=== PATIENT | male | born 1940 | race Caucasian/White ===

== ENCOUNTER 2023-03-31 23:00 | Emergency (ER) | payer MEDICARE, OTHER, SELFPAY ==
[2023-03-31 23:07] VITALS: RESP 16; O2SAT 99
[2023-03-31 23:08] VITALS: BP 135/73; PULSE 79; RESP 18; TEMP 36.7; O2SAT 99; BMI 28.1
--- NOTE | 2023-03-31 23:25 | ED.GENADULT ---
HPI - General Adult General Chief complaint: Unspecified Complaint, Adult Stated complaint: Possible pulled muscle in butt Time Seen by Provider: 03/31/23 23:16 Source: patient Mode of arrival: ambulatory Limitations: no limitations History of Present Illness HPI narrative: 83-year-old male presenting today with pain in his buttocks. He states that this started yesterday. He has an appoint with his primary care provider tomorrow but he could not wait. He pain is constant nothing seems to make it better or worse. Does not stop him from doing his daily physical activities however. He states that this did happen to him about 3 weeks ago and the pain lasted for a few days and then went away. He denies any systemic symptoms. He denies difficulty walking. He denies the pain radiating down his leg. Pain is located in the left buttocks. He states that he spent the day going up and down ladders washing windows, spent about 3 hours doing this, and feels like this perhaps exacerbated his pain. He has taking gabapentin 200 mg which he did not feel was useful. Related Data Home Medications Medication Instructions Recorded Confirmed gabapentin 100 mg capsule 100 mg PO DIRECTED 03/31/23 03/31/23 tamsulosin 0.4 mg capsule 0.4 mg PO DAILY 03/31/23 03/31/23 warfarin 2 mg tablet 2 mg PO DIRECTED 03/31/23 03/31/23 Previous Rx's Medication Instructions Recorded methylprednisolone 4 mg tablets in See Rx Instructions PO .COMPLEX 03/31/23 a dose pack (Medrol (Jj)) #21 ea Allergies Allergy/AdvReac Type Severity Reaction Status Date / Time No Known Drug Allergies Allergy Verified 03/31/23 23:10 Review of Systems Status of ROS: Reports: 10 or more systems reviewed and unremarkable except as noted in History and below [facility] Social History Smoking Status: Never smoker Second hand tobacco smoke exposure: No How often do you have a drink containing alcohol: never How often do you have six or more drinks on one occasion: Never AUDIT-C Alcohol total score: 0 Non-prescribed substance use: denies use Exam Narrative: Exam Narrative: Well-nourished well-developed patient in no acute distress. Alert and oriented. Answers questions appropriately. Mood and affect are appropriate. Thoughts are goal oriented and rational. No tangential or magical thinking noted. Patient speaks in full sentences without needing to catch his breath. Does not appear ill or toxic. He is able to go from a lying to sitting position and then standing without difficulty. HEENT: Normocephalic atraumatic. Pupils are equally round reactive to light. Extraocular muscles are intact. Conjunctivae are moist without any icterus noted. Moist mucous membranes. Skin: Well perfused without any obvious rashes. Back: Normal appearance. Patient has no rash visible in the lower back or buttocks area. He has no significant tenderness to palpation of the buttocks. He has a negative straight leg test. His strength is 5/5 of the bilateral lower extremities. He has no pain with manipulation at the left hip joint. Const: Vital Signs, click to edit/add: Vital Signs - 24 hr 03/31/23 23:07 03/31/23 23:08 Temperature 98.0 F Pulse Rate [Right Pulse Oximeter] 79 Respiratory Rate 18 Respiratory Rate [ Left Buttock] 16 Blood Pressure [Ri ght Upper Arm] 135/73 Pulse Oximetry 99 Oxygen Delivery Me thod Room Air Course Vital Signs Vital signs: Initial Vital Signs Respiratory Rate 16 03/31/23 23:07 Vital Signs Respiratory Rate 16 03/31/23 23:07 Temperature 98.0 F 03/31/23 23:08 Pulse Rate 79 03/31/23 23:08 Respiratory Rate 18 03/31/23 23:08 Blood Pressure 135/73 03/31/23 23:08 Pulse Oximetry 99 03/31/23 23:08 Oxygen Delivery Method Room Air 03/31/23 23:[address] [facility] Narrative Medical decision making narrative: 83-year-old male with gluteal pain. Differential diagnoses includes low back pain, piriformis syndrome, musculoskeletal discomfort, sciatic without radiculopathy. We discussed treatment with a steroid. We discussed this will not bring immediate relief in patient feels comfortable with this. We discussed treatment with narcotic pain medication which the patient does not wish to have at this time. We discussed Tylenol and heat. Patient in agreement with everything we discussed had no other questions. Discharge Plan Discharge Clinical Impression: Gluteal pain Patient Disposition: Home, Self-Care Condition: Stable Additional Instructions: Take steroid as prescribed. Okay to use Tylenol as needed/as directed for discomfort. Okay to use a heating pad to the area, do not apply heat directly to skin. I would recommend that you keep your appointment tomorrow for a follow-up. Can pickle cutter steroids tomorrow and start 1st thing in the morning. You did receive 1 dose of steroid in the ED today. Prescriptions: New methylprednisolone [Medrol (Jj)] 4 mg tablets,dose pack See Rx Instructions .ROUTE .COMPLEX Qty: 21 0RF Rx Instructions: orally per package directions No Action gabapentin 100 mg capsule 100 mg PO DIRECTED tamsulosin 0.4 mg capsule 0.4 mg PO DAILY warfarin 2 mg tablet 2 mg PO DIRECTED Rx Instructions: TAKE 3 TABLETS BY MOUTH EVERY SUN AND THUR, TAKE 2 TABS ALL OTHER DAYS IN THE EVENING OR DIRECTED Stand Alone Forms: [employer] Info Instructions
[2023-03-31] MEDS: predniSONE 10 MG TABLET 50 MG PO (23:38)
[2023-03-31 23:47] VITALS: BP 125/70; PULSE 74; RESP 18; TEMP 36.7; O2SAT 99
[2023-03-31 23:48] VITALS: BP 125/70; PULSE 74; RESP 18; TEMP 36.7
== END 2023-03-31 23:48 | disposition home or self-care (01) ==
PROVIDERS: Emergency Provider Family Medicine
DX: M79.18 Myalgia, other site (principal)
CPT/HCPCS: 99283; 99284; J7512

== ENCOUNTER 2023-05-08 12:37 | Emergency (ER) | payer MEDICARE, OTHER, SELFPAY ==
[2023-05-08 12:51] VITALS: BP 113/68; PULSE 84; RESP 18; TEMP 37; O2SAT 95; BMI 28.2
--- NOTE | 2023-05-08 13:15 | ED.WOUNDLAC ---
HPI - Wound/Laceration General Time Seen by Provider: 13:15 Date Seen: 05/08/23 Chief Complaint: Laceration/Wound Stated Complaint: R knee lac Time Seen by Provider: 05/08/23 13:15 Source: patient, RN notes reviewed and old records reviewed Mode of arrival: ambulatory Limitations: no limitations History of Present Illness HPI narrative: Patient is a very pleasant 83-year-old male with last tetanus in 2016 who has a history of anticoagulant use who comes to the emergency room with complaints of laceration to the right knee. Patient notes he was trying to trim away some strawberry bushes with a gas powered tremor and it flipped back and cut through 2 layers of clothing and caused a laceration to his right knee. He notes there is not significant amount of pain with this and he has been able to ambulate without difficulty. He notes that there was not a tremendous amount of bleeding. Related Data Home Medications Medication Instructions Recorded Confirmed gabapentin 100 mg capsule 100 mg PO DIRECTED 03/31/23 04/09/23 tamsulosin 0.4 mg capsule 0.4 mg PO DAILY 03/31/23 04/09/23 warfarin 2 mg tablet 2 mg PO DIRECTED 03/31/23 04/09/23 acetaminophen 300 mg-codeine 30 mg tab PO 04/09/23 04/09/23 tablet Previous Rx's Medication Instructions Recorded methylprednisolone 4 mg tablets in See Rx Instructions PO .COMPLEX 03/31/23 a dose pack (Medrol (Jj)) #21 ea polyethylene glycol 3350 17 gram 17 g PO QDAY #30 ea 04/09/23 oral powder packet Allergies Allergy/AdvReac Type Severity Reaction Status Date / Time Sulfa (Sulfonamide Allergy Verified 05/08/23 12:53 Antibiotics) Review of Systems Status of ROS: Reports: 6 or more systems reviewed and unremarkable except as noted in History and below PFSH PFS Social History Smoking Status: Never smoker Do you use any of these nicotine containing products: None Second hand tobacco smoke exposure: No How often do you have a drink containing alcohol: never How often do you have six or more drinks on one occasion: Never AUDIT-C Alcohol total score: 0 Non-prescribed substance use: denies use service: No Exam Narrative: Exam Narrative: Patient is alert and oriented very pleasant gentleman. Examination of the right knee shows a laceration measuring approximately 3.8 cm on the right patella. This compromises epidermis dermis and partially compromises subcutaneous tissue. I do not note any underlying structures. Patient is able to flex extend his knee without difficulty. Wound is hemostatic. Const: Vital Signs, click to edit/add: Vital Signs - 24 hr 05/08/23 12:51 Temperature 98.6 F Pulse Rate [Right Pulse Oximeter] 84 Respiratory Rate 18 Blood Pressure [Ri ght Upper Arm] 113/68 Pulse Oximetry 95 Oxygen Delivery Me thod Room Air Documenting provider has reviewed patient's vital signs: yes Course Course ED Course: Patient was anesthetized with 1% lidocaine with epinephrine. Wound was irrigated with 500 mL of normal saline. No foreign bodies were noted pre or post irrigation. Seven sutures of 3-0 Ethilon were placed in interrupted fashion with good wound approximation and closure. Patient tolerated procedure well. Vital Signs Vital signs: Initial Vital Signs Temperature 98.6 F 05/08/23 12:51 Temperature Source Temporal Artery Scan 05/08/23 12:51 Pulse Rate 84 05/08/23 12:51 Pulse Rhythm Regular 05/08/23 12:51 Pulse Strength 3+ Normal 05/08/23 12:51 Respiratory Rate 18 05/08/23 12:51 Blood Pressure 113/68 05/08/23 12:51 Blood Pressure Mean 83 05/08/23 12:51 Blood Pressure Position Sitting 05/08/23 12:51 Pulse Oximetry 95 05/08/23 12:51 Oxygen Delivery Method Room Air 05/08/23 12:51 Vital Signs Temperature 98.6 F 05/08/23 12:51 Pulse Rate 84 05/08/23 12:51 Respiratory Rate 18 05/08/23 12:51 Blood Pressure 113/68 05/08/23 12:51 Pulse Oximetry 95 05/08/23 12:51 Oxygen Delivery Method Room Air 05/08/23 12:51 Temperature 98.6 F 05/08/23 12:51 Pulse Rate 84 05/08/23 12:51 Respiratory Rate 18 05/08/23 12:51 Blood Pressure 113/68 05/08/23 12:51 Pulse Oximetry 95 05/08/23 12:51 Oxygen Delivery Method Room Air 05/08/23 12:51 MDM - Wound/Laceration MDM Narrative Medical decision making narrative: 1. Laceration repair-suture removal in 10 days time. Return to emergency room for signs and symptoms of infection including fever, purulent discharge or erythema. Recommend showering and not allowing me to soak. Cover if working otherwise may leave open to air. Tylenol as needed for discomfort. 2. Disposition-home at this time. Return as needed. Medical Records Attestation: I reviewed the patient's medical records. Discharge Plan Discharge Clinical Impression: Laceration Patient Disposition: Home, Self-Care Condition: Improved Additional Instructions: Keep clean and dry for 24 hours and there after may shower but please do not bathe or have your leg submerged in any water. Sutures will be removed in 10 days time. Monitor for signs and symptoms of infection and should they occur please seek medical attention. Tylenol as needed for discomfort. Prescriptions: No Action acetaminophen-codeine 300-30 mg tablet PO polyethylene glycol 3350 17 gram powder in packet 17 g PO QDAY Qty: 30 2RF gabapentin 100 mg capsule 100 mg PO DIRECTED tamsulosin 0.4 mg capsule 0.4 mg PO DAILY warfarin 2 mg tablet 2 mg PO DIRECTED Rx Instructions: TAKE 3 TABLETS BY MOUTH EVERY FRI AND THUR, TAKE 2 TABS ALL OTHER DAYS IN THE EVENING OR DIRECTED methylprednisolone [Medrol (Jj)] 4 mg tablets,dose pack See Rx Instructions .ROUTE .COMPLEX Qty: 21 0RF Rx Instructions: orally per package directions Follow Up/Referrals: Provider,Not a Local [Referring] - Stand Alone Forms: [employer] Info Instructions
--- NOTE | 2023-05-08 13:46 | ED.NURSE ---
RIGHT knee laceration irrigated with 500mL NS. Pt tolerated procedure well. Dr. Ardon notified that wound cleansing is complete.
== END 2023-05-08 14:12 | disposition home or self-care (01) ==
PROVIDERS: Emergency Provider Family Medicine; PCP Family Medicine
DX: S81.011A Laceration without foreign body, right knee, initial encounter (principal); W27.0XXA Contact with workbench tool, initial encounter
CPT/HCPCS: 12002; 99283

== ENCOUNTER 2023-05-23 10:30 | Outpatient (RCR) | payer MEDICARE, OTHER, SELFPAY | END 2023-08-22 11:31 | disposition home or self-care (01) | PROVIDERS: PCP Family Medicine; Visit Provider Family Medicine | DX: R26.81 Unsteadiness on feet (principal); R26.9 Unspecified abnormalities of gait and mobility; M54.50 Low back pain, unspecified; Z91.81 History of falling; R29.898 Other symptoms and signs involving the musculoskeletal system; M62.81 Muscle weakness (generalized); Z51.89 Encounter for other specified aftercare | CPT/HCPCS: 97110; 97162 ==

== ENCOUNTER 2023-09-21 20:01 | Emergency (ER) | payer MEDICARE, OTHER, SELFPAY ==
[2023-09-21] VITALS (10 sets, daily range): BP systolic 116–128; BP diastolic 66–94; PULSE 72–90; RESP 16–18; TEMP 36.7; O2SAT 94–95; BMI 28.2
--- NOTE | 2023-09-21 20:29 | ED.GENADULT ---
HPI - General Adult General Chief complaint: Abdominal Pain Stated complaint: Abdominal pain Time Seen by Provider: 09/21/23 20:29 History of Present Illness HPI narrative: starting last night after eating some soup at dinner time, since then he has had some indegestion type pain in the mid abd and nausea, hx of ulcers but otherwise denies abd. surgeries. 83-year-old man presenting to the emergency department with concern of abdominal pain. More of a sense of indigestion and then inocencio pain. Just feels like things have not gotten all the way through. Does have a history of I believe inguinal hernia repair but no other abdominal surgeries. Does feel nauseated. This seem to have begun last night after having some soup. He is wondering if it might have been bad. Has not had any diarrhea or constipation in fact had a good bowel movement earlier today which did not really change anything. Apparent history of ulcer. He did end up vomiting a couple of times this morning without hematemesis. Says he just vomited water. 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 No fever. Thinks he might be dehydrated. Also worried he says that once he got to certain age than you wonder what else might be going on. Related Data Home Medications Medication Instructions Recorded Confirmed gabapentin 100 mg capsule 100 mg PO DIRECTED 03/31/23 04/09/23 tamsulosin 0.4 mg capsule 0.4 mg PO DAILY 03/31/23 04/09/23 warfarin 2 mg tablet 2 mg PO DIRECTED 03/31/23 04/09/23 acetaminophen 300 mg-codeine 30 mg tab PO 04/09/23 04/09/23 tablet Previous Rx's Medication Instructions Recorded methylprednisolone 4 mg tablets in See Rx Instructions PO .COMPLEX 03/31/23 a dose pack (Medrol (Jj)) #21 ea polyethylene glycol 3350 17 gram 17 g PO QDAY #30 ea 04/09/23 oral powder packet omeprazole 40 mg capsule,delayed 40 mg PO DAILY #30 caps 09/21/23 release Allergies Allergy/AdvReac Type Severity Reaction Status Date / Time Sulfa (Sulfonamide Allergy Verified 05/08/23 12:53 Antibiotics) Review of Systems Status of ROS: Reports: 6 or more systems reviewed and unremarkable except as noted in History and below PFSH PFSH Social History Smoking Status: Never smoker Do you use any of these nicotine containing products: None Second hand tobacco smoke exposure: No How often do you have a drink containing alcohol: never How often do you have six or more drinks on one occasion: Never AUDIT-C Alcohol total score: 0 Non-prescribed substance use: denies use service: No Exam Narrative: Exam Narrative: A pleasant. NAD. Just looks like it does not feel really good. Nontoxic. Oropharynx is partially edentulous. Dry. Breathing easily. Lungs are clear. Heart in mildly elevated rate in a regular rhythm without murmur rub or gallop. Abdomen is soft and nontender. Not tympanitic. No peritoneal signs. But normal but less active bowel sounds. 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 Const: Vital Signs, click to edit/add: Vital Signs - 24 hr 09/21/23 20:24 09/21/23 21:33 09/21/23 21:34 Temperature 98.1 F Pulse Rate 83 76 Pulse Rate [Pulse Oximeter] 90 Respiratory Rate 16 18 Blood Pressure 123/67 Blood Pressure [Ri ght Upper Arm] 128/76 Pulse Oximetry 94 94 94 Oxygen Delivery Me thod Room Air Room Air 09/21/23 21:41 09/21/23 21:45 09/21/23 22:00 Temperature Pulse Rate 75 75 76 Pulse Rate [Pulse Oximeter] Respiratory Rate Blood Pressure 118/66 Blood Pressure [Ri ght Upper Arm] Pulse Oximetry 94 94 95 Oxygen Delivery Me thod 09/21/23 22:03 09/21/23 22:21 09/21/23 22:42 Temperature Pulse Rate Pulse Rate [Pulse Oximeter] Respiratory Rate Blood Pressure 123/87 119/94 H 116/72 Blood Pressure [Ri ght Upper Arm] Pulse Oximetry Oxygen Delivery Me thod Documenting provider has reviewed patient's vital signs: yes Course Vital Signs Vital signs: Initial Vital Signs Temperature 98.1 F 09/21/23 20:24 Temperature Source Temporal Artery Scan 09/21/23 20:24 Pulse Rate 90 09/21/23 20:24 Respiratory Rate 16 09/21/23 20:24 Blood Pressure 128/76 09/21/23 20:24 Blood Pressure Mean 93 09/21/23 20:24 Blood Pressure Position Supine 09/21/23 20:24 Pulse Oximetry 94 09/21/23 20:24 Oxygen Delivery Method Room Air 09/21/23 20:24 Vital Signs Temperature 98.1 F 09/21/23 20:24 Pulse Rate 90 09/21/23 20:24 Respiratory Rate 16 09/21/23 20:24 Blood Pressure 128/76 09/21/23 20:24 Pulse Oximetry 94 09/21/23 20:24 Oxygen Delivery Method Room Air 09/21/23 20:24 Temperature 98.1 F 09/21/23 20:24 Pulse Rate 72 09/21/23 23:02 Respiratory Rate 18 09/21/23 23:02 Blood Pressure 125/73 09/21/23 23:02 Pulse Oximetry 94 09/21/23 23:02 Oxygen Delivery Method Room Air 09/21/23 23:02 Medications Administered Medications: Discontinued Medications Generic Name Dose Route Start Last Admin Trade Name Freq PRN Reason Stop Dose Admin Sodium Chloride 1,000 mls @ 1,000 mls/hr 09/21/23 20:48 09/21/23 22:19 0.9 % Sodium Chloride 1000 Ml IV 09/21/23 21:47 Infused .Q1H ONE Infusion Ondansetron HCl 4 mg 09/21/23 20:48 09/21/23 21:01 Ondansetron 2 Mg/Ml Inj IVP 09/21/23 20:49 4 mg ONCE ONE Administration Medical Decision Making MDM Narrative Medical decision making narrative: I am reassured by vitals and appearance here today. Seems to have some lingering indigestion primarily. Will hydrate with IV fluids and give Zofran. Check labs for red flags. I do not think he is obstructed. Given IV fluids and Zofran. Overall improved and with vitally well. Tolerating p.o. re-examination of abdomen is still rather benign. Labs are reassuring with white count only slightly elevated at 11,000 thousand and an INR though subtherapeutic at 1.7. See patient discharge plan for further discussion Medical Records Medical records reviewed: Yes I reviewed the patient's medical records Lab Data Lab results reviewed: Yes I reviewed the patient's lab results Labs: Lab Results 09/21/23 Range/Units 21:00 WBC 11.06 H (4.50-11.00) K/uL RBC 5.47 (4.30-5.90) m/uL Hgb 16.1 (13.5-17.5) gm/dL Hct 49.1 (37.0-53.0) % MCV 90 (80-100) fL MCH 29 (26-34) pg MCHC 33 (32-36) gm/dL RDW Coeff of Kimberly 12.6 (11.5-15.5) % Plt Count 285 (140-440) K/uL Neut % (Auto) 86.2 H (42.0-72.0) % Lymph % (Auto) 7.1 L (20-44) % Isabella % (Auto) 6.0 (0.0-11.0) % Eos % (Auto) 0.3 (0.0-7.0) % Baso % (Auto) 0.3 (0.0-3.0) % Neut # (Auto) 9.50 H (1.7-7.0) K/uL Lymph # (Auto) 0.80 L (0.90-2.90) K/uL Isabella # (Auto) 0.70 (0.00-0.90) K/UL Eos # (Auto) 0.00 (0.00-0.50) K/uL Baso # (Auto) 0.00 (0.00-0.30) K/uL Abs Immat Gran (auto) 0.00 (0.00-0.30) K/uL Imm/Tot Granulo (auto) 0.1 % INR 1.69 H (0.91-1.10) Sodium 137 (135-149) mmol/L Potassium 3.9 (3.6-5.1) mmol/L Chloride 107 (96-114) mmol/L Carbon Dioxide 26 (20-32) mmol/L Anion Gap 4 L (7-15) mEq/L BUN 23 (7-30) mg/dL Creatinine 1.1 (0.5-1.5) mg/dL Estimated Creat Clear 46.72 Estimated GFR 67 ml/min Glucose 135 H (60-115) mg/dL Calcium 8.8 (8.4-10.6) mg/dL Total Bilirubin 1.3 (0.1-1.5) mg/dL Direct Bilirubin 0.0 (0.0-0.5) mg/dL AST 26 (12-35) U/L ALT 20 (4-50) U/L Alkaline Phosphatase 118 (40-150) U/L C-Reactive Protein 0.9 (0.5-1.0) mg/dL Total Protein 7.0 (6.0-8.3) g/dL Albumin 4.1 (3.3-5.0) g/dL Lipase 43 (23-300) U/L ECG Data Attestation: I personally reviewed and interpreted this ECG as follows: (Normal sinus rhythm. Rate of 83) Discharge Plan Discharge Clinical Impression: Indigestion, Abdominal discomfort Patient Disposition: Home w/ Parent or Adult Condition: Improved Additional Instructions: Focus on hydration. Slow advance of diet over the next 24-36 hours. Would take diluted juices, soup broth. Crackers, rice, toast. Your INR today was 1.7. Please discuss this with your treating provider/ clinic. Yes. Perhaps you are right that a brief course of Prilosec would be helpful once again for you. I will send that to your pharmacy. Can try your liquid Maalox antacid/anti-gas equivalent when you get home. Also giving Zofran from [facility]. Prescriptions: New omeprazole 40 mg capsule,delayed release(DR/EC) 40 mg PO DAILY Qty: 30 0RF No Action acetaminophen-codeine 300-30 mg tablet PO polyethylene glycol 3350 17 gram powder in packet 17 g PO QDAY Qty: 30 2RF gabapentin 100 mg capsule 100 mg PO DIRECTED tamsulosin 0.4 mg capsule 0.4 mg PO DAILY warfarin 2 mg tablet 2 mg PO DIRECTED Rx Instructions: TAKE 3 TABLETS BY MOUTH EVERY SUN AND THUR, TAKE 2 TABS ALL OTHER DAYS IN THE EVENING OR DIRECTED methylprednisolone [Medrol (Jj)] 4 mg tablets,dose pack See Rx Instructions .ROUTE .COMPLEX Qty: 21 0RF Rx Instructions: orally per package directions Follow Up/Referrals: Manuel Lagos MD [Primary Care Provider] - Stand Alone [facility] Info Instructions
--- OUTSIDE RECORDS SUMMARY | 2023-09-21 20:51 | XMS_ITS | Data Portability ---
Author Name Unknown Address [address] [place] [address] Phone [phone] Organization [place] [facility] Address [address] [place] [address] Assessment No assessment recorded. Plan of Treatment Reminders Order Date Submit Date Provider Last Modified By Organization Details Last Modified Time Details Appointments None recorded. Lab PSA, serum or plasma 2022 023 [email or web address] 30 [facility], [address], [place], [address], 3 12:45:27 PSA, total, serum or plasma 2022 023 [email or web address] 30 [facility], [address], [place], [address], 3 12:25:51 PSA, serum or plasma 2022 023 [facility], [address], [place], [address], 3 11:28:35 PSA, total, serum or plasma 2022 023 [email or web address] [facility], [address], [place], [address], 3 12:05:59 Referral None recorded. Procedures None recorded. Surgeries None recorded. Imaging None recorded. Medication Orders tamsulosin 0.4 mg capsule 2022 023 [facility] [id number] In [facility], [address] [place] [address] [address], [place], [address], 3 11:59:11 Patient TargetsNo targets recorded. Patient InstructionsNo instructions recorded. Reason for Referral None Reported. Results Created Date Observation Date Name Description Value Unit Range Abnormal Flag LastModifiedBy Organization Detail LastModifiedTime 11/19/1911/18/2022 PSA, serum or plasm a PSA 5.7ng/ mL 0-4.0 Not Available [facility] [address], [place], [address], 11/18/2022 11:28:23 02/27/20 23 02/26/2023 PSA, serum or plasm a PSA 5.3ng/ ml 0-4.0 Not Available [facility] [address], [place], [address], 02/26/2023 12:40:58 Result Notes None recorded. Procedures Surgical History Date Name Laterality Status Provider Name and Address Organization Details Recorded Time 3 Blood Draw/PRIVATE TUTOR/PSA RESULTS completed Verito everett [facility] 02/26/2023 12:44:48 3 Bladder Scan completed Nathan Hernandez MD [address] [place] [address], [phone], [facility] 11/18/2022 11:27:45 3 Blood Draw/PRIVATE TUTOR/PSA RESULTS completed Nathan Hernandez MD [address] [place] [address], [phone], [facility] 11/18/2022 11:27:53 Hernia Repair completed Nathan Hernandez MD [address] [place] [address], [phone], [facility] 11/18/2022 11:26:13 Carpal tunnel surgery completed Nathan Hernandez MD [address] [place] [address],[address], [address], [facility] 11/18/2022 11:26:18 Imaging Results None recorded. Procedure Notes None recorded. Medical Equipment None Reported. Allergies Allergen ID Allergen Name Allergen Category Reaction Reaction Severity Criticality Documentation Date Start Date Code Code System Note Provider Name and Address Organization Details Recorded Time 216277 Substance with sulfonami de structure and antibacte rial mechanism of action (substanc e) medicatio n Not available Not available Not available 11/18/2022 94335 [id number] SNOMED Nathan Hernandez MD [address] [facility],[address], [address], [facility] 3 11:25:34 Medications Name Sig Start Date Stop Date Status Note LastModified by Organization Details LastModified Time hydrocodone 5 mg-acetamin ophen 325 mg tablet active Not Available Not Available No t Available prednisone 20 mg tablet TAKE 1 TABLET (20 MG) BY MOUTH ONCE DAILY WITH A MEAL. 11/18 completed Not Available Not Available Not Available acetaminoph en 300 mg-codeine 30 mg tablet Take 0.5 - 1 Tablet by mouth once every 6 hours if needed for Pain. do not exceed 4000mg of acetamino phen in 24 hours.* active Not Available Not Available No t Available oxycodone-a cetaminophe n 5 mg-325 mg tablet 11/18 completed Not Available Not Available Not Available tamsulosin 0.4 mg capsule TAKE TWO CAPSULES BY MOUTH DAILY* active Not Available Not Available No t Available warfarin 2 mg tablet TAKE 3 TABLETS BY MOUTH EVERY FRI AND THUR, TAKE 2 TABS ALL OTHER DAYS IN THE EVENING OR DIRECTED* active Not Available Not Available No t Available gabapentin 100 mg capsule TAKE 1-3 CAPSULES (100-300 MG) BY MOUTH AT BEDTIME. active Not Available Not Available No t Available methylpredn isolone 4 mg tablets in a dose pack Take as directed ON PACKAGE* active Not Available Not Available No t Available amoxicillin 875 mg-potassiu m clavulanate 125 mg tablet TAKE 1 TABLET BY MOUTH TWO TIMES DAILY WITH MEALS FOR 7 DAYS active Not Available Not Available No t Available enoxaparin 60 mg/0.6 mL subcutaneou s syringe Inject 60 mg (CONTENTS OF 1 SYRINGE) subcutane ous every 12 hours for 20 doses. Or as directed* active Not Available Not Available No t Available Vitals Date Recorded Body height Body mass index (BMI) Body weight Provider Name and Address Organization Details Last Updated DateTime 11/18/2022 168.91 cm 11.9 kg/m2 55666.43 g Nathan Hernandez MD [address] [facility],[address] [phone] [place] [address] 11/18/2022 11:25:14 Date Recorded Body height Body mass index (BMI) Body weight Provider Name and Address Organization Details Last Updated DateTime 02/26/2023 168.91 cm 27.8 kg/m2 61624.66 g Nathan Hernandez MD [address] [place] [address],[address] [phone] [place] [address] 02/26/2023 12:34:10 Social History Question Answer Notes LastModified by Organizat ion Details LastModified Time Tobacco Smoking Status Never Smoker Nathan Hernandez MD [address] [place] [address],[address] [address], [facility] 11/18/2022 11:26:32 What Is Your Level Of Alcohol Consumption? None Information not available 11/18/2022 What Is Your Level Of Caffeine Consumption? Moderate Information not available 11/18/2022 Are You Currently Employed? No Information not available 02/26/2023 Recreational Drug Use No Information not available 02/26/2023 What Was The Date Of Your Most Recent Tobacco Screening? 02/26/2023 Information not available 02/26/2023 What Is Your Relationship Status? Information not available 02/26/2023 Sex: Male Functional Status None recorded. Mental Status None recorded. Family History Relationship Description Onset Age of this Age Resolved Age Notes Father No current problems or disability Mother No current problems or disability Medical History Condition Response Bleeding Disorder Y Immunizations Vaccine Type Date Status Provider Name and Address Organization Details Recorded Time Pneumococcal conjugate PCV 13 11/16/2014 completed Nathan Hernandez MD [address] [place] [address],[address], [address], [facility] 11/18/2022 11:25:28 influenza, trivalent, adjuvanted 04/22/2017 vangie everett [facility] 05/05/2023 10:26:27 influenza, trivalent, adjuvanted 04/23/2019 vangie everett [facility] 05/05/2023 10:26:27 influenza, trivalent, adjuvanted 04/27/2018 completed Drea Allar null, [facility] 05/05/2023 10:26:27 HepB-CpG 11/06/2004 completed Drea Allar null, [facility] 05/05/2023 10:26:27 HepB-CpG 12/06/2004 completed Drea Allar null, [facility] 05/05/2023 10:26:27 HepB-CpG 05/08/2005 completed Drea Allar null, [facility] 05/05/2023 10:26:27 Influenza vaccine, quadrivalent, adjuvanted 04/09/2021 completed Drea Allar null, [facility] 05/05/2023 10:26:27 Influenza vaccine, quadrivalent, adjuvanted 04/19/2020 completed Drea Allar null, [facility] 05/05/2023 10:26:27 Influenza vaccine, quadrivalent, adjuvanted 05/24/2022 completed Drea Allar null, [facility] 05/05/2023 10:26:27 COVID-19, mRNA, LNP-S, PF, 100 mcg/0.5mL dose or 50 mcg/0.25mL dose 07/21/2020 completed Drea Allar null, [facility] 05/05/2023 10:26:27 COVID-19, mRNA, LNP-S, PF, 100 mcg/0.5mL dose or 50 mcg/0.25mL dose 08/18/2020 completed Drea Allar null, [facility] 05/05/2023 10:26:27 COVID-19, mRNA, LNP-S, PF, 100 mcg/0.5mL dose or 50 mcg/0.25mL dose 11/19/2021 completed Drea Allar null, [facility] 05/05/2023 10:26:27 COVID-19, mRNA, LNP-S, PF, 100 mcg/0.5mL dose or 50 mcg/0.25mL dose 05/09/2021 completed Drea Allar null, [facility] 05/05/2023 10:26:27 Pneumococcal conjugate PCV20, polysaccharide [id number] conjugate, adjuvant, PF 06/24/2022 completed Drea Allar null, [facility] 05/05/2023 10:26:27 COVID-19, mRNA, LNP-S, bivalent, PF, 50 mcg/0.5 mL or 25mcg/0.25 mL dose 07/19/2022 completed Drea Allar null, [facility] 05/05/2023 10:26:27 Tdap 01/31/2016 completed Drea Allar null, [facility] 05/05/2023 10:26:27 Novel [id number], all formulations 07/24/2009 completed Drea Allar null, [facility] 05/05/2023 10:26:27 zoster live 09/28/2009 completed Drea Allar null, [facility] 05/05/2023 10:26:27 Influenza, high dose seasonal 02/16/2016 completed Drea Allar null, [facility] 05/05/2023 10:26:27 Influenza, high dose seasonal 03/10/2015 completed Drea Allar null, [facility] 05/05/2023 10:26:27 Influenza, high dose seasonal 03/17/2014 completed Drea Allar null, [facility] 05/05/2023 10:26:27 Influenza, seasonal, injectable 06/12/2012 completed Drea Allar null, [facility] 05/05/2023 10:26:27 Influenza, seasonal, injectable 03/08/2009 completed Drea Allar null, [facility] 05/05/2023 10:26:27 Influenza, seasonal, injectable 03/19/2003 completed Drea Allar null, [facility] 05/05/2023 10:26:27 Influenza, seasonal, injectable 03/25/2008 completed Drea Allar null, [facility] 05/05/2023 10:26:27 Influenza, seasonal, injectable 03/25/2013 completed Drea Allar null, [facility] 05/05/2023 10:26:27 Influenza, seasonal, injectable 03/27/2007 completed Drea Allar null, [facility] 05/05/2023 10:26:27 Influenza, seasonal, injectable 04/02/2002 completed Drea Allar null, [facility] 05/05/2023 10:26:27 Influenza, seasonal, injectable 04/19/2010 completed Drea everett, [facility] 05/05/2023 10:26:27 Influenza, seasonal, injectable 05/02/2005 completed Drea everett, [facility] 05/05/2023 10:26:27 Influenza, seasonal, injectable, preservative free 03/22/2011 completed Drea everett, [facility] 05/05/2023 10:26:27 Td (adult), 5 Lf tetanus toxoid, preservative free, adsorbed 08/13/2007 completed Drea everett, [facility] 05/05/2023 10:26:27 Past Encounters Encounter ID Performer Location Encounter Start Date Encounter Closed Date Diagnosis/Indication Diagnosis SNOMED-CT Code [id number] Nathan Hernandez MD [facility] [address] [place] [address] 11/18/2022 10:50:49 11/26/2022 19:16:20 Benign prostatic hyperplasia with outflow obstruction [id number] Prostate s pecific antigen above reference range [id number] Nathan Hernandez MD [facility] [address] [place] [address] 02/26/2023 12:02:07 03/05/2023 20:09:35 Benign prostatic hyperplasia with outflow obstruction [id number] Prostate s pecific antigen above reference range [id number] Health Concerns Section Related Observation LastModified by Organization Detai ls LastModified Time None Recorded Concern Status LastModified by Organization Details LastModified Time None Recorded Advance Directives Directive None Recorded Payers Encounter Date Sequence Insurance Name Policy Number Policy Crenshaw Covered Member ID Crenshaw Member ID Guarantor Name 02/26/2023 1 MEDICA - DUAL ELIGIBLE (MEDICARE REPLACEMENT/ ADVANTAGE - HMO) Mikal Hays [id number] Mikal Hays 11/18/2022 1 MED[employer] - DUAL ELIGIBLE (MEDICARE REPLACEMENT/ ADVANTAGE - HMO) Mikal Hays [id number] Mikal Hays Notes Date Note Type Note Provider Name and Address Organization Details Recorded Time 11/18/2022 text/html HPI Notes: 82 yo male with 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 He denies family H/O prostate cancer. He is on Flomax 0.4 mg daily. - s/p TRUS bx (02/22/15) by Dr. Powers - 50 gm - + high grade PIN at Left lateral base. 04/09/21 - He presents for follow-up on urination. He states his urination is okay. He voids every 2-4 hours during the day and 1x/night. He notes occasional hesitancy at night/morning and occasional urgency (morning). He denies dysuria. 11/18/22 - He presents for follow-up on urination. He voids every 1-2 hours during the day and 0-1x/night. He notes occasional hesitancy. 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 He denies family H/O prostate cancer. He is on Flomax 0.8 mg daily. - s/p TRUS bx (02/22/15) by Dr. Powers - 50 gm - + high grade PIN at Left lateral base. 04/09/21 - He presents for follow-up on urination. He states his urination is okay. He voids every 2-4 hours during the day and 1x/night. He notes occasional hesitancy at night/morning and occasional urgency (morning). He denies dysuria. 11/18/22 - He presents for follow-up on urination. He voids every 1-2 hours during the day and 0-1x/night. He notes occasional hesitancy. 02/26/23 - He presents for follow-up on rising PSA and urination. He state his urination is better with higher dose of Flomax. He voids every 2-3 hours during the day and 0-1x/night. - PVR = 95ml - PSA - 5.3ng/ml PSA - 2.03 (03/25/08) - 2.40 (08/07/09) - 4.81 (11/16/14) - 3.49 (08/02/16) - 4.41 (03/25/17) - 4.71 (07/18/17) - 3.64 (01/07/18) - 3.46 (07/09/18) - 4.57 (11/19/19) - 4.49 (06/29/20) - 6.59 (07/02/21) - 5.00 (11/02/21) - 5.7 (11/18/22) - 5.3 (02/26/23) Prostate MRI (07/24/17) - 65 gm - no suspicious lesions seen Nathan Hernandez MD [address] [facility],[address], [place], [address], [place] [facility] 02/26/2023 13:12:08
--- OUTSIDE RECORDS SUMMARY | 2023-09-21 20:51 | XMS_ITS | Clinical Summary ---
Author Name Unknown Organization [facility] Address [place], [place] [address] Care Team Providers Care Lead Network Engineer Name Role Phone Manuel Lagos MD Primary Care Provider Allergies Active Allergy Reactions Criticality Noted Date Comments Sulfa (Sulfonamide Antibiotics) 07/2006 Medications Medication Sig Dispensed Refills Start Date End Date Status acetaminophen (TYLENOL EXTRA STRGTH) 500 mg tablet Take 1 tablet by mouth every 6 hours if needed. Max acetaminophen dose: 4000mg in 24 hrs. 0 08/16/2016 Active tamsulosin (FLOMAX) 0.4 mg capsuleIndicatio ns:Benign prostatic hyperplasia with weak urinary stream Take 1 Capsule (0.4 mg) by mouth once daily after a meal. 90 Capsule 3 04/09/2021 Active Additional Information Patient taking differently:0.4 mg OralTWICE DAILY AFTER MEALS, Reported on 03/24/2023 gabapentin (NEURONTIN) 100 mg capsuleIndicatio ns:Right arm numbness Take 1-3 Capsules (100-300 mg) by mouth at bedtime. 90 Capsule 3 01/01/2023 Active HYDROcodone-acet aminophen (5-325 mg/tablet) Take 1-2 Tablets by mouth. every 4 to 6 hours if needed for pain. Max of 12 tablets per 24 hours. 15 Tablet 07/03/2023 Active warfarin (COUMADIN) 2 mg tabletIndication s:Acute deep vein thrombosis (DVT) of distal vein of left lower extremity (HC),Anticoagula tion monitoring, INR range 2.5-3.5,1-5% of normal factor VIII (HC) Take by mouth 4 mg (2 mg x 2) every day in the evening OR as directed 09/18/2023 Active warfarin (COUMADIN) 2 mg tabletIndication s:Acute deep vein thrombosis (DVT) of distal vein of left lower extremity (HC),Anticoagula tion monitoring, INR range 2.5-3.5,1-5% of normal factor VIII (HC) Take by mouth 2 mg (2 mg x 1) every Mon, Fri; 4 mg (2 mg x 2) all other days in the evening OR as directed 07/07/2023 Discontinue d(Reorder (E-cancel not sent)) Active Problems Problem Noted Date Diagnosed Date S/P right open carpal tunnel release; DOS: 07/03/[address] Terell eRed 07/14/2023 Right carpal tunnel syndrome 05/12/2023 Stooped posture 04/25/2023 Kyphosis of thoracic region 04/25/2023 Recurrent deep vein thrombosis (DVT) 04/25/2023 Prediabetes 04/04/2023 Stage 3a chronic kidney disease 06/24/2022 S/P carpal tunnel release 01/25/2022 Benign prostatic hyperplasia with weak urinary s tream 05/19/2017 Deep vein thrombosis (DVT) of right upper extrem ity 09/23/2016 Elevated PSA 01/31/2016 Anticoagulation monitoring, INR range 2.5-3.5 Duodenal ulcer, unspecified as acute or chronic, without hemorrhage, perforation, or obstruction 09/01/2006 Other psoriasis 09/01/2006 Acute deep vein thrombosis ( DVT) of distal vein of left lower extremity 09/01/2006 Overview: left calf Personal history of colonic polyps 01/10/2004 Overview: Colonoscopy 06/2015 polyp repeat in 5 years Leiden Factor V Overview: heterozygous factor 5 Resolved Problems Problem Noted Date Diagnosed Date Resolved Date Inguinal hernia 01/01/2023 04/25/2023 Carpal tunnel syndrome, left 11/20/2021 04/25/2023 Encounter for Long-Term (Cur rent) Use of Anticoagulants 10/27/2007 08/18/2013 Overview: INR goal range 2.5-3.5 Deep vein thrombosis of right upper extremity 07/03/1901/23/2017 Overview: right arm Encounters Date Type Department Care Team Description 09/18/2023 8:00 AM CDT Orders Only [facility] [address] [place] [address] Lab, [place] [facility] 09/18/2023 Anticoagulation (warfarin) [facility] [address] [place] [address] 1, [place] [facility] Anticoagulation 09/18/2023 Travel 09/02/2023 Telephone [facility] [address] [place] [phone] Terell Reed MD Appointment 08/27/2023 1:15 PM CDT Orders Only [facility] [address] [place] [address] Lab[place] [facility] 08/27/2023 Anticoagulation (warfarin) [facility] [address] [place] [address] 1, [place] [facility] Anticoagulation 08/27/2023 Telephone [facility] [address] [place] [address] Manuel Lagos MD Anticoagulation (POCT/Venous) 08/27/2023 Travel 08/18/2023 Telephone [facility] [address] [place] [address] Terell Reed MD Questions; Appointment 07/18/2023 7:50 AM LIME PULLER Orders Only [facility] [address] [place] [address] Lab, [place] [facility] 07/18/2023 Anticoagulation (warfarin) [facility] [address] [place] [address] 1[place] [facility] Anticoagulation 07/18/2023 Travel 07/14/2023 2:15 PM LIME PULLER Office Visit [facility] [address] [place] [phone] Angela Ceja PA Surgical Followup (S/P right open carpal tunnel release; DOS: 07/03/[address] Terell Reed) 07/14/2023 Travel 07/13/2023 Telephone [facility] [address] [facility] [address] [place] [phone] Angela Ceja PA Appointment 07/10/2023 9:20 AM LIME PULLER Orders Only [facility] [address] [place] [address] Lab, [place] [facility] 07/10/2023 Anticoagulation (warfarin) [facility] [address] [place] [address] 1[place] [facility] Anticoagulation 07/10/2023 Travel 07/08/2023 Telephone [facility] [address] [facility] [address] [place] [phone] Angela Ceja PA Post-op (1ST POST OP) 07/07/2023 10:45 AM LIME PULLER Orders Only [facility] [address] [place] [address] Lab, [place] [facility] 07/07/2023 Anticoagulation (warfarin) [facility] [address] [place] [address] 1[facility] [place] [facility] Anticoagulation 07/07/2023 Travel 07/03/2023 11:30 AM LIME PULLER - 07/03/2023 11:59 PM LIME PULLER Hospital Encounter Terell Reed MD 07/03/2023 Orders Only [facility] Scanner 1 scan: (1-Ord) [facility], RT OPEN CARPAL TUNNEL RELEASE, 07/03/2023 07/03/2023 Orders Only [facility], [facility] [address] [place], [place] [phone] Terell Reed MD <No scans attached> 07/03/[address] [facility] [address] [place] [address] Terell Reed MD Right open carpal tunnel release 07/02/2023 Telephone [facility] [address] [place] [address] Manuel Lagos MD Error-please disregard (Error) 06/27/2023 Telephone [facility] [address] [place] [address] Manuel Lagos MD Anticoagulation (BPA - ENOXAPARIN 60 MG/0.6 ML SUBCUTANEOUS SYRINGE) 06/26/2023 9:00 AM LIME PULLER Orders Only [facility] [address] [place] [address] Lab[place] [facility] 06/26/2023 Travel 06/24/2023 2:00 PM LIME PULLER Orders Only [facility] [address] [place] [address] Lab, [place] [facility] 06/24/2023 Anticoagulation (warfarin) [facility] [address] [place] [address] 1, [facility] Anticoagulation 06/24/2023 Telephone [facility] [address] [place] [address] Manuel Lagos MD Anticoagulation (07/03/23 carpal tunnel surgery) 06/24/2023 Telephone [facility] [address] [place] [address] 1[facility] [place] [facility] Anticoagulation (POCT vs Venous) 06/24/2023 Travel 06/24/2023 Telephone [facility] [address] [place] [address] Manuel Lagos MD Questions from Last 3 Months Immunizations Name Administration Dates Next Due AMB Influenza, IIV3 (Age >=3 years)(Flu Clinic Only) 03/25/2013,03/22/2011,04/19/2010 Amb Influenza, Inact (High-d ose) (Flu Clinic Only) 03/17/2014 COVID-19 Vaccine Spikevax (M oderna 50mcg/0.5mL) 12YO+ 5107-0530 Formula PF 04/25/2023 Hep B (Hepatitis B (Adult) Recombinant Adjuvanted) 05/08/2005,12/06/2004,11/06/2004 Influenza A (H1N1), Inactivated 07/24/2009 Influenza A (H1N1), Inactiva hunter (Age >=3 Years) 07/24/2009 Influenza, High-dose Inactivated 02/16/2016,10/0 01/2015,03/17/2014 Influenza, IIV3 (Age 6-35 mos) 03/22/2011 Influenza, IIV3 (Age >=3 years) 03/25/20 13,06/12/2012,04/19/2010,2008,03/25/2008,03/27/2007,04/05/2006,1 07/03/2004,03/19/2003,04/02/2002 Influenza, Inactivated AIIV4 (Age 65+ Years) Preserv Free 04/25/2023,05/24/2022,04/09/2021,2019 Influenza, Inactivated IIV3 (Age 65+ Years) Preserv Free 04/23/2019,04/27/2018,04/22/2017 Pneumococcal Conj 20-valent (Prevnar 20) 06/24/2022 Pneumococcal Poly,23-Valent (Pneumovax) 04/05/2006 Pneumococcal conj 13-Valent (Prevnar 13) 11/16/2014 Td (Age >=7 Years) 07/26/1997 Td, Preservative Free (age > = 7 Years) 08/13/2007 Tdap 01/31/2016 Zoster (Zostavax-ZVL, live) 09/28/2009 Family History Medical History Relation Name Comments COPD Brother Cancer Brother lung ca, a t 86 Heart Disease Father Asthma Mother Anesthesia Problem No Family History Relation Name Status Comments Brother Father Mother Social History Tobacco Use Types Packs/Day Years Used Date Smoking Tobacco: Never Passive Smoke Exposure: Yes Smokeless Tobacco: Never Tobacco Cessation:Counseling Given: No Comments: smokes in kitchen Alcohol Use Standard Drinks/Week Comments No 0 (1 standard drink = 0.6 oz pur e alcohol) PHQ-2 Answer Date Recorded PHQ-2 TOTAL SCORE 1 04/25/2023 Social Connections Answer Date Recorded Frequency of Communication with Friends and Fami ly 0 03/24/2023 Financial Resource Strain Answer Date R ecorded Difficulty of Paying Living Expenses 3 03/24/2023 Difficulty of Paying Living Expenses Not on file 03/24/2023 Food Insecurity Answer Date Recorded Worried About Running Out of Food in the Last Ye ar 1 03/24/2023 Transportation Needs Answer Date Record ed Lack of Transportation (Medical) 1 03/24/2023 Housing Stability Answer Date Recorded Unable to Pay for Housing in the Last Year 1 03/24/2023 Sex and Gender Information Value Date Recorded Sex Assigned at Not on file Gender Identity Not on file Sexual Orientation Not on file Obstetrics History Last Filed Vital Signs Vital Sign Reading Time Taken Comments Blood Pressure 108/65 04/25/2023 8:01 AM LIME PULLER Pulse 76 04/25/2023 8:01 AM LIME PULLER Temperature 36.6 ??C (97.8 ??F) 03/24/2023 8:21 AM CD T Respiratory Rate 18 01/10/2022 12:30 PM CDT Oxygen Saturation 96% 04/25/2023 8:01 AM LIME PULLER Inhaled Oxygen Concentration - - Weight 79.7 kg (175 lb 9.6 oz) 04/25/2023 8:01 A M LIME PULLER Height 166.3 cm (5' 5.47) 04/25/2023 8:01 AM CS T Body Mass Index 28.8 04/25/2023 8:01 AM LIME PULLER Plan of Treatment Upcoming Encounters Date Type Department Care Team (Late st Contact Info) Description 09/22/2023 1:15 PM CDT Office Visit [facility] [address] [facility] [place] [phone] Terell Reed MD [address] [facility] [address] [place] [address] 10/02/2023 11:15 AM CDT Orders Only [facility] [address] [place] [address] [place] 12/29/2023 1:40 PM CDT Office Visit [facility] [address] [facility] [place] [phone] Anuel Krishnan MD [address] [place] [address] Health Maintenance Due Date Last Done Comments Zoster (shingles) series for age 50+ (2 of 3) 11/23/2009 09/28/2009 Influenza for age 65+ 02/01/2024 04/25/2023 , 05/24/2022, 04/09/2021, Additional history exists BMI (ht and wt on same day) for age 18+ 04/25/2024 04/25/2023, 06/24/2022, 01/04/2022, Additional history exists Depression screening for age 12+ 04/25/2024 04/25/2023, 08/20/2021, 08/18/2021, Additional history exists Medicare Wellness for age 65+ 04/25/2024, 08/17/2021, 09/30/2018, Additional history exists Tetanus booster 01/30/2026 01/31/2016, 07/31, 07/26/1997 Tdap Completed 01/31/2016 Pneumococcal series for age 65+ Completed 06/24/2022, 11/16/2014, 04/05/2006 COVID-19 vaccine series Completed 04/25/20, 07/19/2022, 11/19/2021, Additional history exists Procedures Procedure Name Priority Date/Time Associated Diagnosis Comments INR,POCT Routine 09/18/2023 8:07 AM CDT Acute deep vein thrombosis (DVT) of distal vein of left lower extremity (HC) Anticoagulation monitoring, INR range 2.5-3.5 1-5% of normal factor VIII (HC) INR,POCT Routine 08/27/2023 1:19 PM CDT Acute deep vein thrombosis (DVT) of distal vein of left lower extremity (HC) Anticoagulation monitoring, INR range 2.5-3.5 1-5% of normal factor VIII (HC) INR,POCT Routine 07/18/2023 8:02 AM LIME PULLER Acute deep vein thrombosis (DVT) of distal vein of left lower extremity (HC) Anticoagulation monitoring, INR range 2.5-3.5 1-5% of normal factor VIII (HC) PLATELET COUNT STAT 07/10/2023 9:22 AM LIME PULLER Acute deep vein thrombosis (DVT) of distal vein of left lower extremity (HC) Anticoagulation monitoring, INR range 2.5-3.5 Leiden Factor V PROTIME-INR STAT 07/10/2023 9:22 AM LIME PULLER Acute deep vein thrombosis (DVT) of distal vein of left lower extremity (HC) Anticoagulation monitoring, INR range 2.5-3.5 1-5% of normal factor VIII (HC) PLATELET COUNT STAT 07/07/2023 10:52 AM LIME PULLER Acute deep vein thrombosis (DVT) of distal vein of left lower extremity (HC) Anticoagulation monitoring, INR range 2.5-3.5 Leiden Factor V PROTIME-INR STAT 07/07/2023 10:52 AM LIME PULLER Acute deep vein thrombosis (DVT) of distal vein of left lower extremity (HC) Anticoagulation monitoring, INR range 2.5-3.5 1-5% of normal factor VIII (HC) SCAN-OPERATIVE/PROCE DURE REPORT 07/03/2023 12:00 AM LIME PULLER CREATININE STAT 06/26/2023 9:15 AM LIME PULLER Acute deep vein thrombosis (DVT) of distal vein of left lower extremity (HC) Anticoagulation monitoring, INR range 2.5-3.5 Leiden Factor V CBC W PLT NO DIFF STAT 06/26/2023 9:1 5 AM LIME PULLER Acute deep vein thrombosis (DVT) of distal vein of left lower extremity (HC) Anticoagulation monitoring, INR range 2.5-3.5 Leiden Factor V INR,POCT Routine 06/24/2023 2:12 PM LIME PULLER Acute deep vein thrombosis (DVT) of distal vein of left lower extremity (HC) Anticoagulation monitoring, INR range 2.5-3.5 1-5% of normal factor VIII (HC) SURGICAL PROCEDURE (TYPE PROCEDURE DESCRIPTION BELOW) Elective Right carpal tunnel syndrome from Last 3 Months Results * (ABNORMAL) INR,POCT (09/18/2023 8:07 AM CDT) Only the most recent of4 resultswithin the time period is included. INR 1.7(H) <1.3 09/18/2023 8:14 AM CDT [facility] Blood BLOOD SPECIMEN / Unknown 09/18/2023 8:07 AM CDT 09/18/2023 8:14 AM CDT Narrative [facility] - 09/18/2023 8:14 AM CDT ?Therapeutic Range 2.0-3.0 for most anticoagulated patients 2.5-3.5 or 4.0 for high risk patients Manuel Lagos MD LABORATORY Performing Organization Address [facility] Co de Phone Number [facility] [address] [place] [address], * PLATELET COUNT (07/10/2023 9:22 AM LIME PULLER) Only the most recent of2 resultswithin the time period is included. PLATELET COUNT 236 140 - 440 thou/cu mm 07/10/2023 9:34 AM [facility] MPV 9.5 6.5 - 11.0 fL 07/10/2023 9:34 AM [facility] Blood BLOOD SPECIMEN / Unknown Venipuncture / Unknown 07/10/2023 9:22 AM LIME PULLER 07/10/2023 9:22 AM LIME PULLER Narrative [facility] - 07/10/2023 9:34 AM FRANCISCO FUENTES to monitor if out of range, to monitor for Heparin-Induced Thrombocytopenia while on lovenox. This procedure was originally ordered at [facility]. Manuel Lagos MD HEMATOLOGY Performing Organization Address [facility]/ZIP Co de Phone Number [facility] [address] [place] [address] * (ABNORMAL) PROTIME-INR (07/10/2023 9:22 AM LIME PULLER) Only the most recent of2 resultswithin the time period is included. INR 2.7(H) <1.3 07/10/2023 9:44 AM LIME PULLER [facility] PROTIME 29.2(H) 10.3 - 12.3 sec 07/10/2023 9:44 AM [facility] Blood BLOOD SPECIMEN / Unknown Venipuncture / Unknown 07/10/2023 9:22 AM LIME PULLER 07/10/2023 9:22 AM LIME PULLER Narrative [facility] - 07/10/2023 9:44 AM LIME PULLER ?Therapeutic Range 2.0-3.0 for most anticoagulated patients 2.5-3.5 or 4.0 for high risk patients The INR is only used for patients on stable oral anticoagulant therapy. It makes no significant contribution to the diagnosis or treatment of patients whose Protime is prolonged for other reasons. INR results are increased when heparin levels exceed 1.0 U/mL, which corresponds to an aPTT >125 seconds if the patient is on UFH. Manuel Lagos MD HEMATOLOGY [facility] [address] [place] [id number] * SCAN-OPERATIVE/PROCEDURE REPORT (07/03/2023 12:00 AM LIME PULLER) Scanner OTHER * CBC W PLT NO DIFF (06/26/2023 9:15 AM LIME PULLER) WHITE BLOOD COUNT 6.2 4.5 - 11.0 thou/cu mm 06/26/2023 9:24 AM LIME PULLER [facility] RED BLOOD COUNT 5.02 4.30 - 5.90 mil/cu mm 06/26/2023 9:24 AM LIME PULLER [facility] HEMOGLOBIN 15.3 13.5 - 17.5 g/dL 06/26/2023 9:24 AM [facility] HEMATOCRIT 45.5 37.0 - 53.0 % 06/26/2023 9:24 AM [facility] MCV 91 80 - 100 fL 06/26/2023 9:24 AM LIME PULLER [facility] MCH 30.5 26.0 - 34.0 pg 06/26/2023 9:24 AM LIME PULLER [facility] MCHC 33.6 32.0 - 36.0 g/dL 06/26/2023 9:24 AM LIME PULLER [facility] RDW 13.2 11.5 - 15.5 % 06/26/2023 9:24 AM [facility] PLATELET COUNT 238 140 - 440 thou/cu mm 06/26/2023 9:24 AM [facility] MPV 9.3 6.5 - 11.0 fL 06/26/2023 9:24 AM [facility] Blood BLOOD SPECIMEN / Unknown Venipuncture / Unknown 06/26/2023 9:15 AM LIME PULLER 06/26/2023 9:18 AM LIME PULLER Manuel Lagos MD HEMATOLOGY [facility] [address] [place] [address], * (ABNORMAL) CREATININE (06/26/2023 9:15 AM LIME PULLER) eGFR 56(L) >90 mL/min/1.7 3m2 06/26/2023 1:07 PM [facility] Comment:As of 2021, eG FR is calculated by the CKD-EPI creatinine equation without race adjustment. ??eGFR can be influenced by muscle mass, exercise, and diet. ??The reported eGFR is an estimation only and is only applicable if the renal function is stable. CREATININE 1.27(H) 0.70 - 1.20 mg/dL 06/26/2023 1:07 PM [facility] Blood BLOOD SPECIMEN / Unknown Venipuncture / Unknown 06/26/2023 9:15 AM LIME PULLER 06/26/2023 9:18 AM LIME PULLER Maneul Lagos MD CHEMISTRY [facility] [address] [facility] [place] [address] from Last 3 Months Advance Directives * Full Code (Latest Code Status on File) Date Activated Date Inactivated Comments 01/10/2022 10:36 AM 01/10/2022 4:11 PM Question Answer Comments Code Status Discussion: Reviewed Preferences Care Teams Lead Network Engineer Relationship Specialty Start Date End Date Manuel Lagos MD [address] [place] [address] PCP - General Family Practice 06/29/20
[2023-09-21] MEDS: 0.9 % SODIUM CHLORIDE 1000 ml 1,000 ML IV (21:01)
[2023-09-21] MEDS: ONDANSETRON 2 MG/ML inj 4 MG IVP (21:01)
[2023-09-21 21:10] LABS: Basophils Percent Auto 0.3 % (0.0-3.0); Eosinophils Percent Auto 0.3 % (0.0-7.0); Hematocrit 49.1 % (37.0-53.0); Hemoglobin* 16.1 gm/dL (13.5-17.5); Immature Granulocytes Pct Auto 0.1 %; Lymphocytes Percent Auto 7.1 % (20-44); Mean Corpuscular HGB Conc 33 gm/dL (32-36); Mean Corpuscular Hemoglobin 29 pg (26-34); Mean Corpuscular Volume 90 fL (80-100); Neutrophils Percent Auto 86.2 % (42.0-72.0); Platelet Count* 285 K/uL (140-440); RDW Coefficient of Variation % 12.6 % (11.5-15.5); Red Blood Count 5.47 m/uL (4.30-5.90); White Blood Count* 11.06 K/uL (4.50-11.00)
[2023-09-21 21:12] LABS: Slide Review Reflex No
[2023-09-21 21:22] LABS: Albumin* 4.1 g/dL (3.3-5.0); Chloride* 107 mmol/L (96-114); Sodium* 137 mmol/L (135-149)
[2023-09-21 21:23] LABS: Potassium* 3.9 mmol/L (3.6-5.1)
[2023-09-21 21:25] LABS: Alkaline Phosphatase* 118 U/L (40-150); Anion Gap 4 mEq/L (7-15); Aspartate Amino Transferase* 26 U/L (12-35); Bilirubin Total* 1.3 mg/dL (0.1-1.5); Blood Urea Nitrogen* 23 mg/dL (7-30); Carbon Dioxide* 26 mmol/L (20-32); Creatinine* 1.1 mg/dL (0.5-1.5); Est. Creatinine Clearance* 46.72; Estimated Glomerular Filt Rate 67 ml/min; Glucose* 135 mg/dL (60-115); INR 1.69 (0.91-1.10); Lipase* 43 U/L (23-300); Prothrombin Time 21.1 Seconds
[2023-09-21 21:26] LABS: Alanine Aminotransferase* 20 U/L (4-50); Calcium* 8.8 mg/dL (8.4-10.6)
[2023-09-21 21:28] LABS: C Reactive Protein* 0.9 mg/dL (0.5-1.0)
== END 2023-09-21 23:07 | disposition home or self-care (01) ==
PROVIDERS: Emergency Provider Family Medicine; PCP Family Medicine
DX: R10.9 Unspecified abdominal pain (principal); K30 Functional dyspepsia
CPT/HCPCS: 36415; 80048; 80076; 83690; 85025; 85610; 86140; 93005; 96374; 99284; J2405; J7030

== ENCOUNTER 2024-04-04 05:16 | Outpatient (CLI) | payer MEDICARE, OTHER, SELFPAY ==
--- OUTSIDE RECORDS SUMMARY | 2024-04-10 01:06 | XMS_ITS | Clinical Summary ---
Author Organization [employer] [facility] Address [place], [place] [address] Care Team Providers Care Agency Legal Counsel Name Role Phone Manuel Lagos MD Primary Care Provider Allergies Active Allergy Reactions Criticality Noted Date Comments Sulfa (Sulfonamide Antibiotics) 07/2006 Medications Medication Sig Dispensed Refills Start Date End Date Status acetaminophen (TYLENOL EXTRA STRGTH) 500 mg tablet Take 1 tablet by mouth every 6 hours if needed. Max acetaminophen dose: 4000mg in 24 hrs. 0 7 Active omeprazole (PRILOSEC) 40 mg Delayed-Release capsule Take 1 Capsule (40 mg) by mouth once daily. 4 Active tamsulosin (FLOMAX) 0.4 mg capsuleIndications: Benign prostatic hyperplasia with weak urinary stream Take 2 Capsules (0.8 mg) by mouth once daily after a meal. 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),Anticoagulatio n monitoring, INR range 2.5-3.5,1-5% of normal factor VIII (HC) Take by mouth 2 mg (2 mg x 1) every Tue, Sat; 4 mg (2 mg x 2) all other days in the evening OR as directed 160 Tablet 4 03/26/20 Discontinu ed(Reorder (E-cancel not sent)) Active Problems [...] Encounters Date Type Department Care Team Description 04/05/2024 1:40 PM DIRECTOR UNIVERSITY Office Visit [facility] [address] [facility] [place] [address] Manuel Lagos MD ER Follow up ([place] [facility], 04/04/2024, joint pain) 04/05/2024 Travel 03/30/2024 Telephone [facility] [address] [facility] [place] [address] Manuel Lagos MD Anticoagulation ([facility]) 03/26/2024 2:45 PM CDT Orders Only [facility] [address] [place] [address] Lab[facility] [place] [facility] 03/26/2024 Anticoagulation (warfarin) [facility] [address] [place] [address] 1, [facility] Anticoagulation 03/26/2024 Travel 03/26/2024 Telephone [facility] [address] [facility] [address] Manuel Lagos MD Anticoagulation (Lab Order Update/) 03/16/2024 Orders Only [facility] Scanner 1 scan: (1-Ord) [facility] 03/16/2024 Telephone [facility] [address] [facility] [place] [address] Manuel Lagos MD Anticoagulation (AC ORDER) 03/04/2024 2:30 PM CDT Orders Only [facility] [address] [place] [address] Lab[facility] [place] [facility] 03/04/2024 Anticoagulation (warfarin) [facility] [address] [place] [address] 1, [facility] Anticoagulation 03/04/2024 Travel 03/03/2024 Telephone [facility] [address] [facility] [place] [address] Manuel Lagos MD Anticoagulation ([facility] Orders/) 03/01/2024 Telephone [facility] [address] [facility] [address] Manuel Lagos MD Anticoagulation (Lab order update) 02/12/2024 10:00 AM CDT Orders Only [facility] [address] [facility] [address] Lab[facility] [place] [facility] 02/12/2024 Anticoagulation (warfarin) [facility] [address] [facility] [place] [address] 1, [facility] Anticoagulation 02/12/2024 Travel 02/04/2024 Refill [facility] [address] [place] [address] Manuel Lagos MD Refill Request (Warfarin) 01/30/2024 1:15 PM CDT Orders Only [facility] [address] [facility] [place] [address] Lab[facility] [place] 01/30/2024 Anticoagulation (warfarin) [facility] [address] [facility] [address] 1, [facility] Anticoagulation 01/30/2024 Travel 01/23/2024 11:30 AM CDT Orders Only [facility] [address] [place] [address] Lab[facility] 01/23/2024 8:00 AM CDT Ancillary Procedure [facility] [address] [facility] [place] [address] 01/23/2024 Anticoagulation (warfarin) [facility] [address] [place] [address] 1, [facility]ticoagulation 01/23/2024 Telephone [facility] [address] [place] [address] Manuel Lagos MD Results 01/23/2024 Travel 01/16/2024 8:30 AM CDT Orders Only [facility] [address] [place] [address] Lab[facility] 01/16/2024 Telephone [facility] [address] [place] [address] Manuel Lagos MD Anticoagulation (INR > 5) 01/16/2024 Anticoagulation (warfarin) [facility] [address] [place] [address] 1, [facility]ticoagulation 01/16/2024 Travel 01/09/2024 9:30 AM CDT Orders Only [facility] [address] [place] [address] Lab[facility] 01/09/2024 Telephone [facility] [address] [place] [address] Manuel Lagos MD Anticoagulation (INR >5 dosing review) 01/09/2024 Anticoagulation (warfarin) [facility] [address] [place] [address] 1, [facility] Anticoagulation 01/09/2024 Travel [...] 1 04/25/2023 Social Connections Answer Date Recorded Do you often feel lonely or isolated from those around you? 0 04/05/2024 Financial Resource Strain Answer Date R ecorded Difficulty of Paying Living Expenses 3 04/05/2024 Difficulty of Paying Living Expenses Not on file 04/05/2024 Food Insecurity Answer Date Recorded Do you worry your food will run out before you are able to buy more? 1 04/05/2024 Transportation Needs Answer Date Record ed Does lack of transportation keep you from medica l appointments? 1 04/05/2024 Does lack of transportation keep you from work, meetings or getting things that you need? 1 04/05/2024 Housing Stability Answer Date Recorded What is your housing situation today? 1 04/05/2024 Sex and Gender Information Value Date Recorded Sex Assigned at Not on file Gender Identity Not on file Sexual Orientation Not on file Obstetrics History Last Filed Vital Signs Vital Sign Reading Time Taken Comments Blood Pressure 131/68 04/05/2024 1:42 PM DIRECTOR UNIVERSITY Pulse 99 04/05/2024 1:42 PM DIRECTOR UNIVERSITY Temperature 36.6 ??C (97.8 ??F) 03/24/2023 8:21 AM CD T Respiratory Rate 18 01/10/2022 12:30 PM CDT Oxygen Saturation 93% 04/05/2024 1:42 PM DIRECTOR UNIVERSITY Inhaled Oxygen Concentration - - Weight 80.7 kg (178 lb) 04/05/2024 1:42 PM DIRECTOR UNIVERSITY Height 166.3 cm (5' 5.47) 04/25/2023 8:01 AM CS T Body Mass Index 29.2 04/25/2023 8:01 AM DIRECTOR UNIVERSITY Plan of Treatment Upcoming Encounters Date Type Department Care Team (Late st Contact Info) Description 04/12/2024 10:30 AM DIRECTOR UNIVERSITY Orders Only [facility] [address] [address] [place] 05/12/2024 8:25 AM DIRECTOR UNIVERSITY Office Visit [facility] [address] [address] Manuel Lagos MD [address] [place] [address] Health Maintenance Due Date Last Done Comments [...] resultswithin the time period is included. INR 3.7(H) ratio [facility] Comment: INRs >2.9 may be falsely [...] PROTHROMBIN TIMEP 44.8(H) 10.5 - 13.1 sec [facility] Comment: Point of care fingerstick Prothrombin Time/INR results may vary from venous Prothrombin Time/INR methodologies. Any results exhibiting inconsistency with the patient's clinical status should be repeated using a venous Prothrombin Time/INR method. Blood BLOOD SPECIMEN / Unknown 03/26/2024 2:47 PM CDT 03/26/2024 2:47 PM CDT Manuel Lagos MD LABORATORY Performing Organization Address City/[facility]/ZIP Co de Phone Number [facility] [address] [place] [address], [facility] [address] [place] [address] * SCAN-EYE EXAM (03/16/2024 12:00 AM CDT) Scanner OTHER * (ABNORMAL) PROTIME-INR (01/23/2024 9:11 AM CDT) Only the most recent of3 resultswithin the time period is included. INR 3.8(H) <1.3 01/23/2024 3:50 PM CDT [facility] PROTIME 41.2(H) 10.3 - 12.3 sec 01/23/2024 3:50 PM CDT [facility] Blood BLOOD SPECIMEN / Unknown Butterfly / Unknown 01/23/2024 9:11 AM CDT 01/23/2024 9:12 AM CDT Narrative [facility] - 01/23/2024 3:50 PM CDT ?Therapeutic [...] is on UFH. Manuel Lagos MD HEMATOLOGY Performing Organization Address City/[facility]/ZIP Co de Phone Number [facility] [address] [place] [address], [place] * ECHO TTE COMPLETE W CONTRAST (01/23/2024 8:58 AM CDT) AORTIC VALVE MEAN PG 5 mmHg EJECTION FRACTION 64 % LVEDD 4.3 cm EJECTION FRACTION 60 - 65% Anatomical Region Laterality Modality Ultrasound 01/23/2024 8:05 AM CDT Narrative 01/23/2024 11:40 AM CDT ECHOCARDIOGRAM MIKAL HAYS ?Accession#: ?? [id number] : ?1940 83 years Study Date: ?? 01/23/2024 8:05:42 AM Gender: M ? BP: ? 128/60 mmHg Height: 165.00 cm ? BSA: ?1.87 m? ? ? Weight: 80.00 kg ?Tech: ? MSR ?Referring MD: INES TOVAR Site: ? [facility] Reading Location: Mobile OP Patient [...] documentation: 9ml ml diluted Definity, lot #[id number], [facility]# [id number] was administered peripherally to enhance visualization of all left ventricular segments. . This study was interpreted by an [facility] accredited facility. ??Final ?? Procedure Note Oscar Araya MD - 01/23/2024 ECHOCARDIOGRAM MIKAL HAYS : 1940 83 years Study Date: 01/23/2024 8:05:42 AM Gender: M BP: 128/60 mmHg Height: 165.00 cm BSA: 1.87 m? ? ? Weight: 80.00 kg Tech: MSR Referring MD: INES TOVAR Site: [facility] Reading Location: Mobile OP Patient [...] documentation: 9ml ml diluted Definity, lot #[id number], [facility]#[id number] was administered peripherally to enhance visualization of allleft ventricular segments. . This study was interpreted by an [facility] accredited facility. Final Ines Tovar MD ECHO ORD from Last 3 Months Advance Directives * Full Code (Latest Code Status on File) Date Activated Date Inactivated Comments 01/10/2022 10:36 AM 01/10/2022 4:11 PM Question Answer Comments Code Status Discussion: Reviewed Preferences Care Teams Agency Legal Counsel Relationship Specialty Start Date End Date Manuel Lagos MD [address] [place] [address] PCP - General Family Practice 06/29/20
--- OUTSIDE RECORDS SUMMARY | 2024-04-10 01:06 | XMS_ITS | Data Portability ---
Author Organization [place] - [facility], [facility] Address [address] [facility] [address] [place] [address] Assessment No assessment recorded. Plan of Treatment Reminders Order Date Submit Date Provider Last Modified By Organization Details Last Modified Time Details Appointments None recorded. Lab PSA, serum or plasma 2022 023 [facility], [address], [place], [address], 11:28:35 PSA, total, serum or plasma 2022 023 [email or web address] [facility], [address], [place], [address], 3 12:05:59 PSA, serum or plasma 2022 023 [email or web address] 30 [facility], [address], [place], [address], 12:45:27 PSA, total, serum or plasma 2022 023 [email or web address] 30 [facility], [address], [place], [address], 12:25:51 Referral None recorded. Procedures None recorded. Surgeries None recorded. Imaging None recorded. Medication Orders tamsulosin 0.4 mg capsule 2022 023 [facility] [id number] In [facility], [address] [place] [address] [address], [place], [address], 3 11:59:11 Patient TargetsNo targets recorded. Patient InstructionsNo instructions recorded. Reason for Referral None Reported. Results Created Date Observation Date Name Description Value Unit Range Abnormal Flag Note LastModifiedBy Organization Detail LastModifiedTime 11/19/19 23 11/18/2022 PSA, serum or plasm a PSA 5.7ng/ mL 0-4.0 Not Available [facility] [address], [place], [address], 11/18/2022 11:28:23 02/27/20 23 02/26/2023 PSA, serum or plasm a PSA 5.3ng/ ml 0-4.0 Not Available [facility] [address], [place], [address], 02/26/2023 12:40:58 Result Notes None recorded. Procedures Surgical History Date Name Laterality Status Provider Name and Address Organization Details Recorded Time 3 Blood Draw/FULL STACK PYTHON DEVELOPER/PSA RESULTS completed Verito White [facility] 02/26/2023 12:44:48 3 Bladder Scan completed Nathan Hernandez MD [address] [place] [address], [address], [facility] 11/18/2022 11:27:45 3 Blood Draw/FULL STACK PYTHON DEVELOPER/PSA RESULTS completed Nathan Hernandez MD [address] [place] [address], [address], [facility] 11/18/2022 11:27:53 Hernia Repair completed Nathan Hernandez MD [address] [place] [address],[address], [address], [facility] 11/18/2022 11:26:13 Carpal tunnel surgery completed Nathan Hernandez MD [address] [place] [address],[address] [address], [facility] 11/18/2022 11:26:18 Imaging Results None recorded. Procedure Notes None recorded. Medical Equipment None Reported. Allergies Allergen ID Allergen Name Allergen Category Reaction Reaction Severity Criticality Documentation Date Start Date Code Code System Note Provider Name and Address Organization Details Recorded Time 753466 Substance with sulfonami de structure and antibacte rial mechanism of action (substanc e) medicatio n Not available Not available Not available 11/18/2022 25486 8003 SNOMED Nathan Hernandez MD [address] [place] [address],[address], [address] , [facility] 3 11:25:34 Medications Name Sig [...] Updated DateTime 11/18/2022 168.91 cm 11.9 kg/m2 34758.43 g Nathan Hernandez MD [address] [facility],[address], [place], [address] [place] [address] 11/18/2022 11:25:14 Date Recorded Body height Body mass index (BMI) Body weight Provider Name and Address Organization Details Last Updated DateTime 02/26/2023 168.91 cm 27.8 kg/m2 26453.66 g Nathan Hernandez MD [address] [facility] [address] [place] [address] Urology 02/26/2023 12:34:10 Social History Question Answer Notes LastModified by Organizat ion Details LastModified Time Tobacco Smoking Status Never Smoker Nathan Hernandez MD [address] [place] [address],[address] [address], [facility] 11/18/2022 11:26:32 What Is Your [...] 13 11/16/2014 completed Nathan Hernandez MD [address] [facility],[address], [address], [facility] 11/18/2022 11:25:28 Influenza, adjuvanted, trivalent, PF 04/22/2017 completed Drea everett [facility] 05/05/2023 10:26:27 Influenza, adjuvanted, trivalent, PF 04/23/2019 completed Drea Allar null, [facility] 05/05/2023 10:26:27 Influenza, adjuvanted, trivalent, PF 04/27/2018 completed Drea Allar null, [facility] 05/05/2023 10:26:27 HepB-CpG 11/06/2004 completed Drea Allar null, [facility] 05/05/2023 10:26:27 HepB-CpG 12/06/2004 completed Drea Allar null, [facility] 05/05/2023 10:26:27 HepB-CpG 05/08/2005 completed Drea Allar null, [facility] 05/05/2023 10:26:27 Influenza, adjuvanted, quadrivalent, PF 04/09/2021 completed Drea Allar null, [facility] 05/05/2023 10:26:27 Influenza, adjuvanted, quadrivalent, PF 04/19/2020 completed Drea Allar null, [facility] 05/05/2023 10:26:27 Influenza, adjuvanted, quadrivalent, PF 05/24/2022 completed Drea Allar null, [facility] 05/05/2023 10:26:27 COVID-19, mRNA, LNP-S, PF, 100 mcg/0.5mL dose or 50 mcg/0.25mL dose 07/21/2020 completed Drea Allar null, [facility] 05/05/2023 10:26:27 COVID-19, mRNA, LNP-S, PF, 100 mcg/0.5mL dose or 50 mcg/0.25mL dose 08/18/2020 completed Drea Allar null, [facility] 05/05/2023 10:26:27 COVID-19, mRNA, LNP-S, PF, 100 mcg/0.5mL dose or 50 mcg/0.25mL dose 11/19/2021 completed Drea Allar null, [facility] 05/05/2023 10:26:27 COVID-19, mRNA, LNP-S, PF, 100 mcg/0.5mL dose or 50 mcg/0.25mL dose 05/09/2021 completed Drea Allar null, [facility] 05/05/2023 10:26:27 Pneumococcal conjugate PCV20, polysaccharide [id number] conjugate, adjuvant, PF 06/24/2022 completed Drea Allar null, [facility] 05/05/2023 10:26:27 COVID-19, mRNA, LNP-S, bivalent, PF, 50 mcg/0.5 mL or 25mcg/0.25 mL dose 07/19/2022 completed Drea Allar null, [facility] 05/05/2023 10:26:27 Tdap 01/31/2016 completed Drea Allar null, [facility] 05/05/2023 10:26:27 Novel [id number], all formulations 07/24/2009 completed Drea Allar null, [facility] 05/05/2023 10:26:27 zoster live 09/28/2009 completed Drea Allar null, [facility] 05/05/2023 10:26:27 Influenza, high-dose, trivalent, PF 02/16/2016 completed Drea Allar null, [facility] 05/05/2023 10:26:27 Influenza, high-dose, trivalent, PF 03/10/2015 completed Drea Allar null, [facility] 05/05/2023 10:26:27 Influenza, high-dose, trivalent, PF 03/17/2014 completed Drea Allar null, [facility] 05/05/2023 10:26:27 Influenza, split virus, trivalent, preservative 06/12/2012 completed Drea Allar null, [facility] 05/05/2023 10:26:27 Influenza, split virus, trivalent, preservative 03/08/2009 completed Drea Allar null, [facility] 05/05/2023 10:26:27 Influenza, split virus, trivalent, preservative 03/19/2003 completed Drea Allar null, [facility] 05/05/2023 10:26:27 Influenza, split virus, trivalent, preservative 03/25/2008 completed Drea Allar null, [facility] 05/05/2023 10:26:27 Influenza, split virus, trivalent, preservative 03/25/2013 completed Drea everett, [facility] 05/05/2023 10:26:27 Influenza, split virus, trivalent, preservative 03/27/2007 completed Drea everett, [facility] 05/05/2023 10:26:27 Influenza, split virus, trivalent, preservative 04/02/2002 completed Drea everett, [facility] 05/05/2023 10:26:27 Influenza, split virus, trivalent, preservative 04/19/2010 completed Drea everett, [facility] 05/05/2023 10:26:27 Influenza, split virus, trivalent, preservative 05/02/2005 completed Drea everett, [facility] 05/05/2023 10:26:27 Influenza, split virus, trivalent, PF 03/22/2011 completed Drea everett, [facility] 05/05/2023 10:26:27 Td (adult), 5 Lf tetanus toxoid, preservative free, adsorbed 08/13/2007 completed Drea everett, [facility] 05/05/2023 10:26:27 Past Encounters Encounter ID Performer Location Encounter Start Date Encounter Closed Date Diagnosis/Indication Diagnosis SNOMED-CT Code Diagnosis ICD10 Code [id number] Nathan Hernandez MD [facility] [address] [place] [address] 11/18/2022 10:50:49 11/26/2022 19:16:20 Benign prostatic hyperplasia with outflow obstruction 840315477 N40.1 Prostate s pecific antigen above reference range 090522639 R97.20 [id number] Nathan Hernandez MD _[facility] [address] [place] [address] 02/26/2023 12:02:07 03/05/2023 20:09:35 Benign prostatic hyperplasia with outflow obstruction 208488075 N40.1 Prostate s pecific antigen above reference range 090111421 R97.20 Health Concerns Section Related Observation LastModified by Organization Detai ls LastModified Time None Recorded Concern Status LastModified by Organization Details LastModified Time None Recorded Advance Directives Directive None Recorded Payers Encounter Date Sequence Insurance Name Policy Number Policy Crenshaw Covered Member ID Crenshaw Member ID Guarantor Name 11/18/2022 1 MEDICA - DUAL ELIGIBLE (MEDICARE REPLACEMENT/ ADVANTAGE - HMO) Mikal Hays [id number] Mikal Hays 02/26/2023 1 MEDICA - DUAL ELIGIBLE (MEDICARE REPLACEMENT/ ADVANTAGE - HMO) Mikal Hays [id number] Mikal Hays Notes Date Note Type Note [...] no suspicious lesions seen Nathan Hernandez MD [address] [facility],[address], [place], [address], [facility] - [facility] 11/19/2022 20:57:28 02/26/2023 text/html HPI Notes: [...] no suspicious lesions seen Nathan Hernandez MD [address] [facility],[address], [place], [address], [place] [facility] 02/26/2023 13:12:08
== END 2024-04-04 05:17 | disposition home or self-care (01) ==
LOC: AMB 04-10 01:04
PROVIDERS: PCP Family Medicine; Visit Provider Family Medicine
DX: M79.642 Pain in left hand (principal); M79.641 Pain in right hand; M79.604 Pain in right leg; M79.605 Pain in left leg
CPT/HCPCS: A0425; A0429

== ENCOUNTER 2024-04-04 05:45 | Emergency (ER) | payer MEDICARE, OTHER, SELFPAY ==
[2024-04-04 05:50] VITALS: RESP 18; O2SAT 96; O2SAT 97
[2024-04-04 05:51] VITALS: BP 144/82; PULSE 89; RESP 20; TEMP 37.3; O2SAT 96; BMI 28.2
--- NOTE | 2024-04-04 05:53 | ED_ITS ---
HPI - General Adult General Chief complaint: Unspecified Complaint, Adult Stated complaint: weakness Time Seen by Provider: 04/04/24 05:52 History of Present Illness HPI narrative: CC: Generalized Muscle Cramps pt. with symptoms for last day or so. denies fevers , n/v, diarrhea . 84-year-old man presenting to the emergency department this [facility] via EMS with concern of muscle cramps. Had a busy evening of yd work. Fell asleep around 9:00 p.m. woke around midnight with just intense pain in his hands and knees. He did take a little acetaminophen and that seemed to help initially but then upon waking again his pain gotten worse. He does endorse arthritic pain but this was just excessive any just could not really move. Spouse could not help him move. Tried calling daughters and they were apparently with the phones off so called EMS. I have seen him in the past for indigestion. He does not typically take ibuprofen for that reason and I believe is anticoagulated Related Data Home Medications ?Medication ?Instructions ?Recorded ?Confirmed gabapentin 100 mg capsule 100 mg PO DIRECTED 03/31/23 04/04/24 tamsulosin 0.4 mg capsule 0.4 mg PO DAILY 03/31/23 04/04/24 warfarin 2 mg tablet 2 mg PO DIRECTED 03/31/23 04/04/24 Previous Rx's ?Medication ?Instructions ?Recorded diclofenac sodium 3 % topical gel 1 applic topical BID PRN #100 grams 04/04/24 Allergies Allergy/AdvReac Type Severity Reaction Status Date / Time Sulfa (Sulfonamide Allergy Verified 04/04/24 05:53 Antibiotics) Review of Systems Status of ROS: Reports: 6 or more systems reviewed and unremarkable except as noted in History and below [facility] Medical History (Updated 04/04/24 @ 07:41 by Azam Garnett MD) Factor V Leiden ?D68.51 - Activated protein C resistance (ICD-10) Social History Smoking Status: Never smoker Do you use any of these nicotine containing products: None Second hand tobacco smoke exposure: No How often do you have a drink containing alcohol: never How often do you have six or more drinks on one occasion: Never AUDIT-C Alcohol total score: 0 Non-prescribed substance use: denies use service: No Exam Narrative: Exam Narrative: I would assess his hands to be little puffy but he feels they look about normal. Demonstrates though that there sore repeatedly opening closing them. Edentulous. Skin otherwise is warm and dry. Extremities without edema other than what might be small effusion on the right knee. No erythema. Moving all extremities otherwise without difficulty. Lungs are clear. Heart in regular rate and rhythm. Cranial nerves 2-12 intact. Const: Vital Signs, click to edit/add: Vital Signs - 24 hr 04/04/24 05:51 Temperature 99.2 F Pulse Rate [Right Pulse Oximeter] 89 Respiratory Rate 20 Blood Pressure [Ri ght Upper Arm] 144/82 H Pulse Oximetry 96 Oxygen Delivery Me thod Room Air Documenting provider has reviewed patient's vital signs: yes Course Vital Signs Vital signs: Initial Vital Signs Respiratory Rate 18 04/04/24 05:50 Pulse Oximetry 97 04/04/24 05:50 Vital Signs Respiratory Rate 18 04/04/24 05:50 Pulse Oximetry 97 04/04/24 05:50 Temperature 99.2 F 04/04/24 06:50 Pulse Rate 81 04/04/24 06:50 Respiratory Rate 20 04/04/24 06:50 Blood Pressure 138/74 04/04/24 06:50 Pulse Oximetry 96 04/04/24 06:50 Oxygen Delivery Method Room Air 04/04/24 06:50 Medications Administered Medications: Discontinued Medications Generic Name Dose Route Start Last Admin Trade Name Freq PRN Reason Stop Dose Admin Sodium Chloride 500 mls @ 1,000 mls/hr 04/04/24 06:12 04/04/24 07:10 0.9 % Sodium Chloride 500 Ml IV 04/04/24 06:41 Infused .Q30M ONE Infusion Ketorolac Tromethamine 15 mg 04/04/24 07:38 04/04/24 07:52 Ketorolac 15 Mg/Ml Inj IVP 04/04/24 07:39 15 mg ONCE ONE Administration Medical Decision Making MDM Narrative Medical decision making narrative: May have had some viral prodrome leading to some polyarthralgia. I am inclined to think maybe just overdid it over the course the day. Stressed arthritis and muscles. Would do screening labs looking for red flags. Inflammatory marker like CRP perhaps as well. Did discuss pain management. Discussed options. Settled on singular dosing of ketorolac and normal saline bolus. In spite of anticoagulation I think is singular dosing should be all right. Labs are overall reassuring though CRP is little elevated at 1.8. On reassessment is overall quite improved. Discussed further pain management complicated by anticoagulation. He is worried about having a flare again. Consider topical options. See patient discharge plan for further discussion. Medical Records Medical records reviewed: Yes I reviewed the patient's medical records Lab Data Lab results reviewed: Yes I reviewed the patient's lab results Labs: Lab Results 04/04/24 Range/Units 06:06 WBC 8.31 (4.50-11.00) K/uL RBC 5.00 (4.30-5.90) m/uL Hgb 14.9 (13.5-17.5) gm/dL Hct 45.0 (37.0-53.0) % MCV 90 (80-100) fL MCH 30 (26-34) pg MCHC 33 (32-36) gm/dL RDW Coeff of [employer] 12.5 (11.5-15.5) % Plt Count 234 (140-440) K/uL Neut % (Auto) 86.9 H (42.0-72.0) % Lymph % (Auto) 3.5 L (20-44) % [place] % (Auto) 8.3 (0.0-11.0) % Eos % (Auto) 0.2 (0.0-7.0) % Baso % (Auto) 0.1 (0.0-3.0) % Neut # (Auto) 7.20 H (1.7-7.0) K/uL Lymph # (Auto) 0.30 L (0.90-2.90) K/uL [place] # (Auto) 0.70 (0.00-0.90) K/UL Eos # (Auto) 0.02 (0.00-0.50) K/uL Baso # (Auto) 0.01 (0.00-0.30) K/uL Abs Immat Gran (auto) 0.08 (0.00-0.30) K/uL Imm/Tot Granulo (auto) 1.0 % Sodium 132 L (135-149) mmol/L Potassium 3.9 (3.6-5.1) mmol/L Chloride 102 (96-114) mmol/L Carbon Dioxide 22 (20-32) mmol/L Anion Gap 8 (7-15) mEq/L BUN 30 (7-30) mg/dL Creatinine 1.2 (0.5-1.5) mg/dL Estimated Creat Clear 42.09 Estimated GFR 60 ml/min Glucose 123 H (60-115) mg/dL Calcium 8.6 (8.4-10.6) mg/dL C-Reactive Protein 1.8 H (0.5-1.0) mg/dL Discharge Plan Discharge Clinical Impression: Arthralgia Additional Instructions: If needed am prescribing some [place] from [employer]. This is an opiate, hydrocodone combined with acetaminophen. Each tablet contains 325 mg of acetaminophen. You can take up to 1000 mg of acetaminophen per dose for pain. You received ketorolac in your IV in addition to normal saline here today. You might consider topical NSAID like diclofenac gel. This is available [id number] but I will prescribe some as well. You apply this to the joints that hurt. Stay well-hydrated. Prescriptions: New diclofenac sodium 3 % gel 1 applic topical BID PRNQty: 100 0RF No Action gabapentin 100 mg capsule 100 mg PO DIRECTED tamsulosin 0.4 mg capsule 0.4 mg PO DAILY warfarin 2 mg tablet 2 mg PO DIRECTED Rx Instructions: TAKE 3 TABLETS BY MOUTH EVERY SUN AND THUR, TAKE 2 TABS ALL OTHER DAYS IN THE EVENING OR DIRECTED Follow Up/Referrals: Manuel Lagos MD [Primary Care Provider] - Stand Alone Forms: [employer] Info Instructions
[2024-04-04] MEDS: 0.9 % SODIUM CHLORIDE 500 ML 500 ML 1000 ML IV (06:15)
[2024-04-04 06:17] LABS: Basophils Absolute Auto 0.01 K/uL (0.00-0.30); Basophils Percent Auto 0.1 % (0.0-3.0); Eosinophils Absolute Auto 0.02 K/uL (0.00-0.50); Eosinophils Percent Auto 0.2 % (0.0-7.0); Hemoglobin* 14.9 gm/dL (13.5-17.5); Immature Granulocytes Abs Auto 0.08 K/uL (0.00-0.30); Lymphocytes Percent Auto 3.5 % (20-44); Mean Corpuscular HGB Conc 33 gm/dL (32-36); Mean Corpuscular Hemoglobin 30 pg (26-34); Mean Corpuscular Volume 90 fL (80-100); Monocytes Percent Auto 8.3 % (0.0-11.0); Neutrophils Percent Auto 86.9 % (42.0-72.0); Platelet Count* 234 K/uL (140-440); RDW Coefficient of Variation % 12.5 % (11.5-15.5); White Blood Count* 8.31 K/uL (4.50-11.00)
[2024-04-04 06:19] LABS: Slide Review Reflex No
[2024-04-04 06:34] LABS: Chloride* 102 mmol/L (96-114); Potassium* 3.9 mmol/L (3.6-5.1); Sodium* 132 mmol/L (135-149)
[2024-04-04 06:36] LABS: Creatinine* 1.2 mg/dL (0.5-1.5); Est. Creatinine Clearance* 42.09; Estimated Glomerular Filt Rate 60 ml/min
[2024-04-04 06:37] LABS: Anion Gap 8 mEq/L (7-15); Blood Urea Nitrogen* 30 mg/dL (7-30); Carbon Dioxide* 22 mmol/L (20-32); Glucose* 123 mg/dL (60-115)
[2024-04-04 06:38] LABS: Calcium* 8.6 mg/dL (8.4-10.6)
[2024-04-04 06:40] LABS: C Reactive Protein* 1.8 mg/dL (0.5-1.0)
[2024-04-04 06:50] VITALS: BP 138/74; PULSE 81; RESP 20; TEMP 37.3; O2SAT 96
--- OUTSIDE RECORDS SUMMARY | 2024-04-04 06:52 | XMS_ITS | Clinical Summary ---
Author Organization [employer] [facility] Address [place], [place] [address] Care Team Providers Care Welt Cutter Name Role Phone Manuel Lagos MD Primary Care Provider Allergies Active Allergy Reactions Criticality Noted Date Comments Sulfa (Sulfonamide Antibiotics) 07/2006 Medications Medication Sig Dispensed Refills Start Date End Date Status acetaminophen (TYLENOL EXTRA STRGTH) 500 mg tablet Take 1 tablet by mouth every 6 hours if needed. Max acetaminophen dose: 4000mg in 24 hrs. 0 08/16/2016 Active omeprazole (PRILOSEC) 40 mg Delayed-Release capsule Take 1 Capsule (40 mg) by mouth once daily. 09/21/2023 Active tamsulosin (FLOMAX) 0.4 mg capsuleIndicatio ns:Benign prostatic hyperplasia with weak urinary stream Take 2 Capsules (0.8 mg) by mouth once daily after a meal. 180 Capsule 3 12/29/2023 Active warfarin (COUMADIN) 2 mg tabletIndication s:Acute deep vein thrombosis (DVT) of distal vein of left lower extremity (HC),Anticoagula tion monitoring, INR range 2.5-3.5,1-5% of normal factor VIII (HC) Take by mouth 2 mg (2 mg x 1) every e, Chanda, Sat; 4 mg (2 mg x 2) all other days in the evening OR as directed 03/26/2024 Active warfarin (COUMADIN) 2 mg tabletIndication s:Acute deep vein thrombosis (DVT) of distal vein of left lower extremity (HC),Anticoagula tion monitoring, INR range 2.5-3.5,1-5% of normal factor VIII (HC) Take by mouth 2 mg (2 mg x 1) every Tue, Sat; 4 mg (2 mg x 2) all other days in the evening OR as directed 160 Tablet 02/05/2024 4 Discontinu ed(Reorder (E-cancel not sent)) Active Problems Problem Noted Date Diagnosed Date Systolic murmur 12/16/2023 S/P right open carpal tunnel release; DOS: 07/03/[address] 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 factor 5 Resolved Problems Problem Noted Date Diagnosed Date Resolved Date Inguinal hernia 01/01/2023 04/25/2023 Carpal tunnel syndrome, left 11/20/2021 04/25/2023 Encounter for Long-Term (Cur rent) Use of Anticoagulants 10/27/2007 08/18/2013 Overview (01/13/2009): INR goal range 2.5-3.5 Deep vein thrombosis of right upper extremity 07/03/19 06 01/23/2017 Overview (09/01/2006): right arm Encounters Date Type Department Care Team Description 03/30/2024 Telephone [facility] [address] [address] Manuel Lagos MD Anticoagulation (Standing Labs) 03/26/2024 2:45 PM CDT Orders Only [facility] [address] [place] [address] Lab, [facility] 03/26/2024 Anticoagulation (warfarin) [facility] [address] [place] [address] 1, [facility] Anticoagulation 03/26/2024 Travel 03/26/2024 Telephone [facility] [address] [place] [address] Manuel Lagos MD Anticoagulation (Lab Order Update/) 03/16/2024 Orders Only [facility] Scanner 1 scan: (1-Ord) [facility] 03/16/2024 Telephone [facility] [address] [place] [address] Manuel Lagos MD Anticoagulation (AC ORDER) 03/04/2024 2:30 PM CDT Orders Only [facility] [address] [place] [address] Lab, [facility] 03/04/2024 Anticoagulation (warfarin) [facility] [address] [place] [address] 1, [facility] Anticoagulation 03/04/2024 Travel 03/03/2024 Telephone [facility] [address] [place] [address] Manuel Lagos MD Anticoagulation ([facility] Orders/) 03/01/2024 Telephone [facility] [address] [place] [address] Manuel Lagos MD Anticoagulation (Lab order update) 02/12/2024 10:00 AM CDT Orders Only [address] [place] [address] Lab, [facility] 02/12/2024 Anticoagulation (warfarin) [facility] [address] [facility] [place] [address] 1, [facility] Anticoagulation 02/12/2024 Travel 02/04/2024 Refill [facility] [address] [facility] [place] [address] Manuel Lagos MD Refill Request (Warfarin) 01/30/2024 1:15 PM CDT Orders Only [facility] [address] [facility] [place] [address] Lab, [facility] 01/30/2024 Anticoagulation (warfarin) [facility] [address] [facility] [place] [address] 1, [facility] Anticoagulation 01/30/2024 Travel 01/23/2024 11:30 AM CDT Orders Only [facility] [address] [facility] [place] [address] Lab, [facility] 01/23/2024 8:00 AM CDT Ancillary Procedure [facility] [address] [facility] [place] [address] 01/23/2024 Anticoagulation (warfarin) [facility] [address] [facility] [place] [address] 1, [facility] Anticoagulation 01/23/2024 Telephone [facility] [address] [place] [address] Manuel Lagos MD Results 01/23/2024 Travel 01/16/2024 8:30 AM CDT Orders Only [facility] [address] [place] [address] Lab, [facility] 01/16/2024 Telephone [facility] [address] [place] [address] Manuel Lagos MD Anticoagulation (INR > 5) 01/16/2024 Anticoagulation (warfarin) [facility] [address] [place] [address] 1, [facility] Anticoagulation 01/16/2024 Travel 01/09/2024 9:30 AM CDT Orders Only [facility] [address] [place] [address] Lab, [facility] 01/09/2024 Telephone [facility] [address] [place] [address] Manuel Lagos MD Anticoagulation (INR >5 dosing review) 01/09/2024 Anticoagulation (warfarin) [facility] [address] [place] [address] [address] 1, [facility] Anticoagulation 01/09/2024 Travel from Last 3 Months Immunizations Name Administration Dates Next Due AMB Influenza, IIV3 (Age >=3 years)(Flu Clinic Only) 03/25/2013,03/22/2011,04/19/2010 Amb Influenza, Inact (High-d ose) (Flu Clinic Only) 03/17/2014 COVID-19 VACCINE SPIKEVAX (M ODERNA 50MCG/0.5ML) 12YO+ PFS 04/25/2023 Hep B (Hepatitis B (Adult) R ecombinant Adjuvanted) 05/08/2005,12/06/2004,11/06/2004 Influenza A (H1N1), Inactivated 07/24/2009 Influenza A (H1N1), Inactiva hunter (Age >=3 Years) 07/24/2009 Influenza, High-dose Inactivated 02/16/2016,10/0 01/2015,03/17/2014 Influenza, IIV3 (Age 6-35 mos) 03/22/2011 Influenza, IIV3 (Age >=3 years) 03/25/20 13,06/12/2012,04/19/2010,03/08,03/25/2008,03/27/2007,04/05/2006 ,05/02/2005,03/19/2003,04/02/2002 Influenza, Inactivated AIIV4 (Age 65+ Years) Preserv Free 04/25/2023,05/24/2022,04/09/2021,04/19 Influenza, Inactivated IIV3 (Age 65+ Years) Preserv Free 04/23/2019,04/27/2018,04/22/2017 Pneumococcal Conj 20-valent (Prevnar 20) 06/24/2022 Pneumococcal Poly,23-Valent (Pneumovax) 04/05/2006 Pneumococcal conj 13-Valent (Prevnar 13) 11/16/2014 RSV, Recombinant ADJ Reconst ituted (Arexvy 120MCG/0.5mL) 05/30/2023 Td (Age >=7 Years) 07/26/1997 Td, Preservative Free (age >= 7 Years) 8 Tdap 01/31/2016 Zoster (Zostavax-ZVL, live) 09/28/2009 Family [...] file 03/24/2023 Food Insecurity Answer Date Recorded Do you worry your food will run out before you are able to buy more? 1 03/24/2023 Transportation Needs Answer Date Record ed Lack of Transportation (Medical) 1 03/24/2023 Housing Stability Answer Date Recorded What is your housing situation today? 1 03/24/2023 Sex and Gender Information Value Date Recorded Sex Assigned at Not on file Gender Identity Not on file Sexual Orientation Not on file Obstetrics History Last Filed Vital Signs Vital Sign Reading Time Taken Comments Blood Pressure 128/60 12/29/2023 1:38 PM CDT Pulse 64 12/29/2023 1:38 PM CDT Temperature 36.6 ??C (97.8 ??F) 03/24/2023 8:21 AM CD T Respiratory Rate 18 01/10/2022 12:30 PM CDT Oxygen Saturation 95% 12/16/2023 9:55 AM CDT Inhaled Oxygen Concentration - - Weight 79.7 kg (175 lb 9.6 oz) 12/29/2023 1:38 P M CDT Height 166.3 cm (5' 5.47) 04/25/2023 8:01 AM CS T Body Mass Index 28.8 04/25/2023 8:01 AM JAILKEEPER Plan of Treatment Health Maintenance Due Date Last Done Comments Zoster (shingles) series for age 50+ (2 of 3) 11/23/2009 09/28/2009 COVID-19 vaccine series ( season) 2024 04/25/2023, 07/19/2022, 11/19/2021, Additional history exists Influenza for age 65+ 02/01/2024 04/25/2023 , [...] for age 65+ Completed 06/24/2022, 11/16/2014, 04/05/2006 RSV vaccine for adults or Completed 05/30/2023 Procedures Procedure Name Priority Date/Time Associated Diagnosis Comments INR,POCT Routine 03/26/2024 2:47 PM CDT Acute deep vein thrombosis (DVT) of distal vein of left lower extremity (HC) Anticoagulation monitoring, INR range 2.5-3.5 Leiden Factor V SCAN-EYE EXAM 03/16/2024 12:00 AM CDT INR,POCT Routine 03/04/2024 2:37 PM CDT Acute deep vein thrombosis (DVT) of distal vein of left lower extremity (HC) Anticoagulation monitoring, INR range 2.5-3.5 Leiden Factor V INR,POCT Routine 02/12/2024 10:00 AM CDT Acute deep vein thrombosis (DVT) of distal vein of left lower extremity (HC) Anticoagulation monitoring, INR range 2.5-3.5 Leiden Factor V INR,POCT Routine 01/30/2024 1:23 PM CDT Acute deep vein thrombosis (DVT) of distal vein of left lower extremity (HC) Anticoagulation monitoring, INR range 2.5-3.5 Leiden Factor V PROTIME-INR STAT 01/23/2024 9:11 AM CDT Acute deep vein thrombosis (DVT) of distal vein of left lower extremity (HC) Anticoagulation monitoring, INR range 2.5-3.5 1-5% of normal factor VIII (HC) ECHO TTE COMPLETE W CONTRAST Routine 01/23/2024 8:58 AM CDT Systolic murmur PROTIME-INR STAT 01/16/2024 8:35 AM CDT Acute deep vein thrombosis (DVT) of distal vein of left lower extremity (HC) Anticoagulation monitoring, INR range 2.5-3.5 1-5% of normal factor VIII (HC) PROTIME-INR STAT 01/09/2024 9:34 AM CDT Acute deep vein thrombosis (DVT) of distal vein of left lower extremity (HC) Anticoagulation monitoring, INR range 2.5-3.5 Leiden Factor V from Last 3 Months Results * (ABNORMAL) INR,POCT (03/26/2024 2:47 PM CDT) Only the most recent of4 resultswithin the time period is included. [facility] Signature INR 3.7(H) ratio [facility] Comment: INRs >2.9 may be falsely elevated in patients receiving either unfractionated Heparin or Low Molecular Weight Heparin. Follow up testing in a hospital laboratory may be helpful if clinically indicated. INR results of > or = 5.0 should be verified using the standard venipuncture procedure. Reference Range ? 0.9-1.1 Moderate-intensity Warfarin Therapy 2.0-3.0 Higher-intensity Warfarin Therapy ?? 3.0-4.0 PROTHROMBIN TIMEP 44.8(H) 10.5 - 13.1 sec [facility] Comment: Point of care fingerstick Prothrombin Time/INR results may vary from venous Prothrombin Time/INR methodologies. Any results exhibiting inconsistency with the patient's clinical status should be repeated using a venous Prothrombin Time/INR method. Blood BLOOD SPECIMEN / Unknown 03/26/2024 2:47 PM CDT 03/26/2024 2:47 PM CDT Manuel Lagos MD LABORATORY [facility] [address] [place] [address], [facility] [address] [place] [address] * SCAN-EYE EXAM (03/16/2024 12:00 AM CDT) Scanner OTHER * (ABNORMAL) PROTIME-INR (01/23/2024 9:11 AM CDT) Only the most recent of3 resultswithin the time period is included. INR 3.8(H) <1.3 01/23/2024 3:50 PM CDT [facility] PROTIME 41.2(H) 10.3 - 12.3 sec 01/23/2024 3:50 PM CDT [facility] Blood BLOOD SPECIMEN / Unknown Butterfly / Unknown 01/23/2024 9:11 AM CDT 01/23/2024 9:12 AM CDT Narrative [facility] - 01/23/2024 3:50 PM CDT ?Therapeutic Range 2.0-3.0 for most anticoagulated [...] is on UFH. Manuel Lagos MD HEMATOLOGY [facility] [address] [place] [address], [place] * ECHO TTE COMPLETE W CONTRAST (01/23/2024 8:58 AM CDT) AORTIC VALVE MEAN PG 5 mmHg EJECTION FRACTION 64 % LVEDD 4.3 cm EJECTION FRACTION 60 - 65% Anatomical Region Laterality Modality Ultrasound 01/23/2024 8:05 AM CDT Narrative 01/23/2024 11:40 AM CDT ECHOCARDIOGRAM MIKAL HAYS ?Accession#: ?? [id number] : ?1940 83 years Study Date: ?? 01/23/2024 8:05:42 AM Gender: M ? BP: ? 128/60 mmHg Height: 165.00 cm ? BSA: ?1.87 m? ? ? Weight: 80.00 kg ?Tech: ? MSR ?Referring MD: INES TOVAR Site: ? [facility] Reading Location: Mobile OP Patient Location: Outpatient. Procedure: 2D w/ Contrast, Color Doppler and Spectral Doppler. Indication for study: Systolic murmur Cardiac Rhythm: Regular.Study quality: Good. Final Impressions: 1. Normal LV size, normal wall thickness, estimated EF of 60 - 65%. 2. Mild RV enlargement, normal systolic function. 3. The aortic valve is sclerotic, no stenosis and no regurgitation. 4. No pathology to explain murmur detected on this exam. 5. Echo contrast was administered to enhance visualization of all left ventricular segments. Comparison Compared to prior exam of 05/17/16, there has been no significant change. Chamber Sizes and Function Normal left ventricular size, normal wall thickness, normal global systolic function with an estimated EF of 60 - 65%. Left atrial size is normal. Right ventricular cavity size is normal, global systolic RV function is normal. RV wall thickness is normal. The right atrium is normal. The pulmonary artery is of normal size and origin. The sinus of Valsalva is normal sized. The ascending aorta is normal sized. Valves, RV Pressures and Diastolic Function The aortic valve is sclerotic, no stenosis and no regurgitation. The mitral valve is normal in structure, no mitral regurgitation. Normal diastolic function. The tricuspid valve is normal in structure. Tricuspid regurgitation is regurgitation is not evident. The pulmonic valve is normal. No pulmonary regurgitation. Masses, Effusion, Shunts There is no pericardial effusion. The inferior vena cava is normal sized, respiratory size variation greater than 50%. No left to right shunting was detected by limited color flow Doppler interrogation of the interatrial septum. MEASUREMENTS AND CALCULATIONS 2-D Measurements and LV Function: LVID (d) 4.3 cm LV FS% (2D) ?? 29 % LVID (s) 3.0 cm LVOT diameter 2.2 cm IVS (d) ??0.7 cm HR ?63 bpm LVPW (d) 0.7 cm LA Vol index ??22 ml/m2 Ao Sinus 3.4 cm RV Max 4C (d) 5.0 cm Asc Ao ?? 3.5 cm Diastology: Mitral ?Tissue Doppler E Peak 0.6 m/s ??e', Septum ? 0.06 m/s A Peak 0.7 m/s ??e', Lateral ?0.07 m/s E/A ?0.8 ?E/e' Average ?? 8.98 DT ? 202 msec Aortic Valve: Vmax ? 1.4 m/s ??MIRZA (V) ?? 2.48 cm? ? ? VTI ?0.29 m ?? MIRZA (I) ?? 2.99 cm? ? ? LVOT V max 0.9 m/s ??Max PG ?8 mmHg LVOT VTI ?? 0.22 m ?? Mean PG ?? 5 mmHg SV ? 88 ml ?Dim Index 0.76 SV index ?? 47 ml/m? ? ? CO ?5.5 l/min ?CI ?3.0 l/min/m? ? ? Mitral Valve: MVA ?3.8 cm? ? ? MV P 1/2 59 msec Tricuspid Valve and estimated PA pressures: TAPSE 2.5 cm Pulmonic Valve: PV AT 115 msec Contrast documentation: 9ml ml diluted Definity, lot #[id number], [facility]# [id number] was administered peripherally to enhance visualization of all left ventricular segments. . This study was interpreted by an [facility] accredited facility. ??Final ?? Procedure Note Oscar Araya MD - 01/23/2024 ECHOCARDIOGRAM MIKAL HAYS : 1940 83 years Study Date: 01/23/2024 8:05:42 AM Gender: M BP: 128/60 mmHg Height: 165.00 cm BSA: 1.87 m? ? ? Weight: 80.00 kg Tech: MSR Referring MD: INES TOVAR Site: [facility] Reading Location: Mobile OP Patient Location: Outpatient. Procedure: 2D w/ Contrast, Color Doppler and Spectral Doppler. Indication for study: Systolic murmur Cardiac Rhythm: Regular.Study quality: Good. Final Impressions: 1. Normal LV size, normal wall thickness, estimated EF of 60 - 65%. 2. Mild RV enlargement, normal systolic function. 3. The aortic valve is sclerotic, no stenosis and no regurgitation. 4. No pathology to explain murmur detected on this exam. 5. Echo contrast was administered to enhance visualization of all leftventricular segments. Comparison Compared to prior exam of 05/17/16, there has been no significantchange. Chamber Sizes and Function Normal left ventricular size, normal wall thickness, normal globalsystolic function with an estimated EF of 60 - 65%. Left atrial size isnormal. Right ventricular cavity size is normal, global systolic RVfunction is normal. RV wall thickness is normal. The right atrium isnormal. The pulmonary artery is of normal size and origin. The sinus ofValsalva is normal sized. The ascending aorta is normal sized. Valves, RV Pressures and Diastolic Function The aortic valve is sclerotic, no stenosis and no regurgitation. Themitral valve is normal in structure, no mitral regurgitation. Normaldiastolic function. The tricuspid valve is normal in structure. Tricuspidregurgitation is regurgitation is not evident. The pulmonic valve isnormal. No pulmonary regurgitation. Masses, Effusion, Shunts There is no pericardial effusion. The inferior vena cava is normal sized,respiratory size variation greater than 50%. No left to right shunting wasdetected by limited color flow Doppler interrogation of the interatrialseptum. MEASUREMENTS AND CALCULATIONS 2-D Measurements and LV Function: LVID (d) 4.3 cm LV FS% (2D) 29 % LVID (s) 3.0 cm LVOT diameter 2.2 cm IVS (d) 0.7 cm HR 63 bpm LVPW (d) 0.7 cm LA Vol index 22 ml/m2 Ao Sinus 3.4 cm RV Max 4C (d) 5.0 cm Asc Ao 3.5 cm Diastology: Mitral Tissue Doppler E Peak 0.6 m/s e', Septum 0.06 m/s A Peak 0.7 m/s e', Lateral 0.07 m/s E/A 0.8 E/e' Average 8.98 DT 202 msec Aortic Valve: Vmax 1.4 m/s MIRZA (V) 2.48 cm? ? ? VTI 0.29 m MIRZA (I) 2.99 cm? ? ? LVOT V max 0.9 m/s Max PG 8 mmHg LVOT VTI 0.22 m Mean PG 5 mmHg SV 88 ml Dim Index 0.76 SV index 47 ml/m? ? ? CO 5.5 l/min CI 3.0 l/min/m? ? ? Mitral Valve: MVA 3.8 cm? ? ? MV P 1/2 59 msec Tricuspid Valve and estimated PA pressures: TAPSE 2.5 cm Pulmonic Valve: PV AT 115 msec Contrast documentation: 9ml ml diluted Definity, lot #[id number], [facility]#[id number] was administered peripherally to enhance visualization of allleft ventricular segments. . This study was interpreted by an [facility] accredited facility. Final Ines Tovar MD ECHO ORD from Last 3 Months Advance Directives * Full Code (Latest Code Status on File) Date Activated Date Inactivated Comments 01/10/2022 10:36 AM 01/10/2022 4:11 PM Question Answer Comments Code Status Discussion: Reviewed Preferences Care Teams Welt Cutter Relationship Specialty Start Date End Date Manuel Lagos MD [address] [place] [address] PCP - General Family Practice 06/29/20
--- OUTSIDE RECORDS SUMMARY | 2024-04-04 06:52 | XMS_ITS | Data Portability ---
Author Organization [place] [facility], [facility] Address [address] [facility] [address] [place] [address] Assessment No assessment recorded. Plan of Treatment Reminders Order Date Submit Date Provider Last Modified By Organization Details Last Modified Time Details Appointments None recorded. Lab PSA, serum or plasma 2022 023 [facility], [address], [place], [address], 11:28:35 PSA, total, serum or plasma 2022 023 [email or web address] [facility], [address], [place], [address], 3 12:05:59 PSA, serum or plasma 2022 023 [email or web address] 30 [facility], [address], [place], [address], 12:45:27 PSA, total, serum or plasma 2022 023 [email or web address] 30 [facility], [address], [place], [address], 12:25:51 Referral None recorded. Procedures None recorded. Surgeries None recorded. Imaging None recorded. Medication Orders tamsulosin 0.4 mg capsule 2022 023 [facility] [address] In [facility], [address] [place] [address] [address], [place], [address], 3 11:59:11 Patient TargetsNo targets recorded. Patient InstructionsNo instructions recorded. Reason for Referral None Reported. Results Created Date Observation Date Name Description Value Unit Range Abnormal Flag Note LastModifiedBy Organization Detail LastModifiedTime 11/19/19 23 11/18/2022 PSA, serum or plasm a PSA 5.7ng/ mL 0-4.0 Not Available [facility] [address], [place], [address], 11/18/2022 11:28:23 02/27/20 23 02/26/2023 PSA, serum or plasm a PSA 5.3ng/ ml 0-4.0 Not Available [facility] [address], [place], [address], 02/26/2023 12:40:58 Result Notes None recorded. Procedures Surgical History Date Name Laterality Status Provider Name and Address Organization Details Recorded Time 3 Blood Draw/PLUMBING ASSEMBLER INSTALLER/PSA RESULTS completed Verito White [facility] 02/26/2023 12:44:48 3 Bladder Scan completed Nathan Hernandez MD [address] [place] [address], [phone], [facility] 11/18/2022 11:27:45 3 Blood Draw/PLUMBING ASSEMBLER INSTALLER/PSA RESULTS completed Nathan Hernandez MD [address] [place] [address], [address], [facility] 11/18/2022 11:27:53 Hernia Repair completed Nathan Hernandez MD [address] [place] [address],[address], [address], [facility] 11/18/2022 11:26:13 Carpal tunnel surgery completed Nathan Hernandez MD [address] [place] [address],[address] [address], [facility] 11/18/2022 11:26:18 Imaging Results None recorded. Procedure Notes None recorded. Medical Equipment None Reported. Allergies Allergen ID Allergen Name Allergen Category Reaction Reaction Severity Criticality Documentation Date Start Date Code Code System Note Provider Name and Address Organization Details Recorded Time [id number] Substance with sulfonami de structure and antibacte rial mechanism of action (substanc e) medicatio n Not available Not available Not available 11/18/2022 [id number] SNOMED Nathan Hernandez MD [address] [place] [address],[address], [address] , [facility] 3 11:25:34 Medications Name Sig Start [...] Updated DateTime 11/18/2022 168.91 cm 11.9 kg/m2 86627.43 g Nathan Hernandez MD [address] [facility], [place], [address] [place] [address] 11/18/2022 11:25:14 Date Recorded Body height Body mass index (BMI) Body weight Provider Name and Address Organization Details Last Updated DateTime 02/26/2023 168.91 cm 27.8 kg/m2 11024.66 g Nathan Hernandez MD [address] [facility],[address] [phone] [place] [address] Urology 02/26/2023 12:34:10 Social History Question Answer Notes LastModified by Organizat ion Details LastModified Time Tobacco Smoking Status Never Smoker Nathan Hernandez MD [address] [place] [address],[address] [address], [facility] 11/18/2022 11:26:32 What Is Your Level Of [...] Relationship Status? Information not available 02/26/2023 Sex: Unknown Functional Status None recorded. Mental Status None recorded. Family History Relationship Description Onset Age of this Age Resolved Age Notes LastModified by Organization Details LastModified Time Father No current problems or disability Not available 11/18 11:26:46 Mother No current problems or disability Not available 11/18 11:26:46 Medical History Condition Response Bleeding Disorder Y Immunizations Vaccine Type Date Status Provider Name and Address Organization Details Recorded Time Pneumococcal conjugate PCV 13 11/16/2014 completed Nathan Hernandez MD [address] [facility],[address], [address], [facility] 11/18/2022 11:25:28 Influenza, adjuvanted, trivalent, PF 04/22/2017 completed Drea everett [facility] 05/05/2023 10:26:27 Influenza, adjuvanted, trivalent, PF 04/23/2019 completed Drea Allar null, [facility] 05/05/2023 10:26:27 Influenza, adjuvanted, trivalent, PF 04/27/2018 completed Drea Allar null, [facility] 05/05/2023 10:26:27 HepB-CpG 11/06/2004 completed Drea Allar null, [facility] 05/05/2023 10:26:27 HepB-CpG 12/06/2004 completed Drea Allar null, [facility] 05/05/2023 10:26:27 HepB-CpG 05/08/2005 completed Drea Allar null, [facility] 05/05/2023 10:26:27 Influenza, adjuvanted, quadrivalent, PF 04/09/2021 completed Drea Allar null, [facility] 05/05/2023 10:26:27 Influenza, adjuvanted, quadrivalent, PF 04/19/2020 completed Drea Allar null, [facility] 05/05/2023 10:26:27 Influenza, adjuvanted, quadrivalent, PF 05/24/2022 completed Drea Allar null, [facility] 05/05/2023 10:26:27 COVID-19, mRNA, LNP-S, PF, 100 mcg/0.5mL dose or 50 mcg/0.25mL dose 07/21/2020 completed Drea Allar null, [facility] 05/05/2023 10:26:27 COVID-19, mRNA, LNP-S, PF, 100 mcg/0.5mL dose or 50 mcg/0.25mL dose 08/18/2020 completed Drea Allar null, [facility] 05/05/2023 10:26:27 COVID-19, mRNA, LNP-S, PF, 100 mcg/0.5mL dose or 50 mcg/0.25mL dose 11/19/2021 completed Drea Allar null, [facility] 05/05/2023 10:26:27 COVID-19, mRNA, LNP-S, PF, 100 mcg/0.5mL dose or 50 mcg/0.25mL dose 05/09/2021 completed Drea Allar null, [facility] 05/05/2023 10:26:27 Pneumococcal conjugate PCV20, polysaccharide [id number] conjugate, adjuvant, PF 06/24/2022 completed Drea Allar null, [facility] 05/05/2023 10:26:27 COVID-19, mRNA, LNP-S, bivalent, PF, 50 mcg/0.5 mL or 25mcg/0.25 mL dose 07/19/2022 completed Drea Allar null, [facility] 05/05/2023 10:26:27 Tdap 01/31/2016 completed Drea Allar null, [facility] 05/05/2023 10:26:27 Novel Eqalfcpmx-T6H5-20, all formulations 07/24/2009 completed Drea Allar null, [facility] 05/05/2023 10:26:27 zoster live 09/28/2009 completed Drea Allar null, [facility] 05/05/2023 10:26:27 Influenza, high-dose, trivalent, PF 02/16/2016 completed Drea Allar null, [facility] 05/05/2023 10:26:27 Influenza, high-dose, trivalent, PF 03/10/2015 completed Drea Allar null, [facility] 05/05/2023 10:26:27 Influenza, high-dose, trivalent, PF 03/17/2014 completed Drea Allar null, [facility] 05/05/2023 10:26:27 Influenza, split virus, trivalent, preservative 06/12/2012 completed Drea Allar null, [facility] 05/05/2023 10:26:27 Influenza, split virus, trivalent, preservative 03/08/2009 completed Drea Allar null, [facility] 05/05/2023 10:26:27 Influenza, split virus, trivalent, preservative 03/19/2003 completed Drea Allar null, [facility] 05/05/2023 10:26:27 Influenza, split virus, trivalent, preservative 03/25/2008 completed Drea Allar null, [facility] 05/05/2023 10:26:27 Influenza, split virus, trivalent, preservative 03/25/2013 completed Drea everett, [facility] 05/05/2023 10:26:27 Influenza, split virus, trivalent, preservative 03/27/2007 completed Drea everett, [facility] 05/05/2023 10:26:27 Influenza, split virus, trivalent, preservative 04/02/2002 completed Drea everett, [facility] 05/05/2023 10:26:27 Influenza, split virus, trivalent, preservative 04/19/2010 completed Drea everett, [facility] 05/05/2023 10:26:27 Influenza, split virus, trivalent, preservative 05/02/2005 completed Drea everett, [facility] 05/05/2023 10:26:27 Influenza, split virus, trivalent, PF 03/22/2011 completed Drea everett, [facility] 05/05/2023 10:26:27 Td (adult), 5 Lf tetanus toxoid, preservative free, adsorbed 08/13/2007 completed Drea everett, [facility] 05/05/2023 10:26:27 Past Encounters Encounter ID Performer Location Encounter Start Date Encounter Closed Date Diagnosis/Indication Diagnosis SNOMED-CT Code Diagnosis ICD10 Code [id number] Nathan Hernandez MD _[facility] [address] [place] [address] 11/18/2022 10:50:49 11/26/2022 19:16:20 Benign prostatic hyperplasia with outflow obstruction 374155115 N40.1 Prostate s pecific antigen above reference range 886156206 R97.20 [id number] Nathan Hernandez MD _[facility] [address] [place] [address] 02/26/2023 12:02:07 03/05/2023 20:09:35 Benign prostatic hyperplasia with outflow obstruction 358141532 N40.1 Prostate s pecific antigen above reference range 141252883 R97.20 Health Concerns Section Related Observation LastModified by Organization Detai ls LastModified Time None Recorded Concern Status LastModified by Organization Details LastModified Time None Recorded Advance Directives Directive None Recorded Payers Encounter Date Sequence Insurance Name Policy Number Policy Crenshaw Covered Member ID Crenshaw Member ID Guarantor Name 11/18/2022 1 MEDICA - DUAL ELIGIBLE (MEDICARE REPLACEMENT/ ADVANTAGE - HMO) Mikal Hays [id number] Mikal Hays 02/26/2023 1 MEDICA - DUAL ELIGIBLE (MEDICARE REPLACEMENT/ ADVANTAGE - HMO) Mikal Hays [id number] Mikal Hays Notes Date Note Type Note [...] no suspicious lesions seen Nathan Hernandez MD [address] [facility],[address], [place], [address], [facility] 11/19/2022 20:57:28 02/26/2023 text/html HPI Notes: [...] no suspicious lesions seen Nathan Hernandez MD [address] [facility],[address], [place], [address], [place] [facility] 02/26/2023 13:12:08
[2024-04-04] MEDS: KETOROLAC 15 MG/ML inj IVP (07:52)
== END 2024-04-04 08:22 | disposition home or self-care (01) ==
PROVIDERS: Emergency Provider Family Medicine; PCP Family Medicine
DX: M25.561 Pain in right knee (principal)
CPT/HCPCS: 36415; 80048; 85025; 86140; 94761; 96374; 99283; 99284; J1885; J7030

== ENCOUNTER 2025-04-21 06:36 | Outpatient (CLI) | payer MEDICARE, OTHER, SELFPAY | END 2025-04-21 06:37 | disposition home or self-care (01) | LOC: AMB 04-25 17:02 | PROVIDERS: PCP Family Medicine; Visit Provider Family Medicine | DX: M25.561 Pain in right knee (principal) | CPT/HCPCS: A0425; A0426 ==

== ENCOUNTER 2025-04-21 07:04 | Inpatient (IN) | payer MEDICARE, OTHER, SELFPAY ==
[2025-04-21] VITALS (50 sets, daily range): BP systolic 82–148; BP diastolic 54–110; PULSE 76–106; RESP 16–24; TEMP 36.1–37.2; O2SAT 83–97; BMI 27.7
--- OUTSIDE RECORDS SUMMARY | 2025-04-21 07:06 | XMS_ITS | Data Portability ---
[facility] [place] [facility] Address [address] [place] [address] Assessment No assessment recorded. Plan of Treatment Reminders Order Date Submit Date Provider Last Modified By Organization Details Last Modified Time Details Appointments None recorded. Lab PSA, serum or plasma 2022 023 [email or web address] 30 [facility], [address], [place], [address], 12:45:27 PSA, total, serum or plasma 2022 023 [email or web address] 30 [facility], [address], [place], [address], 3 12:25:51 PSA, serum or plasma 2022 023 [facility], [address], [place], [address], 3 11:28:35 PSA, total, serum or plasma 2022 023 [email or web address] [facility], [address], [place], [address], 3 12:05:59 Referral None recorded. Procedures None recorded. Surgeries None recorded. Imaging None recorded. Medication Orders tamsulosin 0.4 mg capsule 2022 023 [facility] [id number] In [facility], [address] [place] [address] [address], [place], [address], 3 11:59:11 Patient TargetsNo targets recorded. Patient InstructionsNo instructions recorded. Reason for Referral None Reported. Results Created Date Observation Date Name Description Value Unit Range Abnormal Flag Note LastModifiedBy Organization Detail LastModifiedTime 11/19/1911/18/2022 PSA, serum or plasm a PSA 5.7ng/ mL 0-4.0 Not Available [facility] [address], [place], [address], 11/18/2022 11:28:23 02/27/20 23 02/26/2023 PSA, serum or plasm a PSA 5.3ng/ ml 0-4.0 Not Available [facility] [address], [place], [address], 02/26/2023 12:40:58 Result Notes None recorded. Procedures Surgical History Date Name Laterality Status Provider Name and Address Organization Details Recorded Time 3 Blood Draw/SENIOR SECURITY ARCHITECT/PSA RESULTS completed Verito White [facility] 02/26/2023 12:44:48 3 Bladder Scan completed Nathan Hernandez MD [address] [place] [address], [address], [facility] 11/18/2022 11:27:45 3 Blood Draw/SENIOR SECURITY ARCHITECT/PSA RESULTS completed Nathan Hernandez MD [address] [place] [address], [address], [facility] 11/18/2022 11:27:53 Hernia Repair completed Nathan Hernandez MD [address] [place] [address],[address], [address], [facility] 11/18/2022 11:26:13 Carpal tunnel surgery completed Nathan Hernandez MD [address] [place] [address],[address], [address], [facility] 11/18/2022 11:26:18 Imaging Results None recorded. Procedure Notes None recorded. Medical Equipment None Reported. Allergies Allergen ID Allergen Name Allergen Category Reaction Reaction Severity Criticality Documentation Date Start Date Code Code System Note Provider Name and Address Organization Details Recorded Time 291985 Substance with sulfonami de structure and antibacte rial mechanism of action (substanc e) medicatio n Not available Not available Not available 11/18/2022 32410 8003 SNOMED Nathan Hernandez MD [address] [facility],[address], [address], [facility] 3 11:25:34 Medications Name Sig Start [...] tablet TAKE 3 TABLETS BY MOUTH EVERY SUN AND THUR, TAKE 2 TABS ALL OTHER [...] Updated DateTime 11/18/2022 168.91 cm 11.9 kg/m2 20179.43 g Nathan Hernandez MD [address] [facility] [place] [phone] [place] [address] 11/18/2022 11:25:14 Date Recorded Body height Body mass index (BMI) Body weight Provider Name and Address Organization Details Last Updated DateTime 02/26/2023 168.91 cm 27.8 kg/m2 93631.66 g Nathan Hernandez MD [address] [place] [address],[address] [address] [place] [address] Urolog 02/26/2023 12:34:10 Social History Question Answer Notes LastModified by Organizat ion Details LastModified Time Tobacco Smoking Status Never Smoker Nathan Hernandez MD [address] [place] [address],[address] [address], [facility] 11/18/2022 11:26:32 What Is Your Level Of Caffeine Consumption? Moderate Information not available 11/18/2022 Recreational Drug Use No Information not available 02/26/2023 What Was The Date Of Your Most Recent Tobacco Screening? 02/26/2023 Information not available 02/26/2023 What Is Your Relationship Status? Information not available 02/26/2023 Sex: Unknown Functional Status Question Answer Note LastModified by Organization D etails LastModified Time What is your level of alcohol consumption? None Information not available 11/18/2022 Are you currently employed? No Information not available 02/26/2023 Mental Status None recorded. Family History Relationship Description Onset Age of this Age Resolved Age Notes LastModified by Organization Details LastModified Time Father No current problems or disability Not available 11/18 11:26:46 Mother No current problems or disability Not available 11/18 11:26:46 Medical History Condition Response Bleeding Disorder Y Immunizations Vaccine Type Date Status Note Provider Nam e and Address Organization Details Recorded Time Pneumococcal conjugate PCV 13 5 completed Nathan Hernandez MD [address] [facility],[address], [address], [facility] 11/18/2022 11:25:28 Influenza, adjuvanted, trivalent, PF 7 completed Drea everett [facility] 05/05/2023 10:26:27 Influenza, adjuvanted, trivalent, PF 9 completed Drea Allar null, [facility] 05/05/2023 10:26:27 Influenza, adjuvanted, trivalent, PF 8 completed Drea Allar null, [facility] 05/05/2023 10:26:27 HepB-CpG 5 completed Drea Allar null, [facility] 05/05/2023 10:26:27 HepB-CpG 5 completed Drea Allar null, [facility] 05/05/2023 10:26:27 HepB-CpG 5 completed Drea Allar null, [facility] 05/05/2023 10:26:27 Influenza, adjuvanted, quadrivalent, PF 1 completed Drea Allar null, [facility] 05/05/2023 10:26:27 Influenza, adjuvanted, quadrivalent, PF 0 completed Drea Allar null, [facility] 05/05/2023 10:26:27 Influenza, adjuvanted, quadrivalent, PF 2 completed Drea Allar null, [facility] 05/05/2023 10:26:27 COVID-19, mRNA, LNP-S, PF, 100 mcg/0.5mL dose or 50 mcg/0.25mL dose 1 completed Drea Allar null, [facility] 05/05/2023 10:26:27 COVID-19, mRNA, LNP-S, PF, 100 mcg/0.5mL dose or 50 mcg/0.25mL dose 1 completed Drea Allar null, [facility] 05/05/2023 10:26:27 COVID-19, mRNA, LNP-S, PF, 100 mcg/0.5mL dose or 50 mcg/0.25mL dose 2 completed Drea Allar null, [facility] 05/05/2023 10:26:27 COVID-19, mRNA, LNP-S, PF, 100 mcg/0.5mL dose or 50 mcg/0.25mL dose 1 completed Drea Allar null, [facility] 05/05/2023 10:26:27 Pneumococcal conjugate PCV20, polysaccharide [id number] conjugate, adjuvant, PF 3 completed Drea Allar null, [facility] 05/05/2023 10:26:27 COVID-19, mRNA, LNP-S, bivalent, PF, 50 mcg/0.5 mL or 25mcg/0.25 mL dose 3 completed Drea Allar null, [facility] 05/05/2023 10:26:27 Tdap 6 completed Drea Allar null, [facility] 05/05/2023 10:26:27 Novel [id number], all formulations 0 completed Drea Allar null, [facility] 05/05/2023 10:26:27 zoster live 0 completed Drea Allar null, [facility] 05/05/2023 10:26:27 Influenza, high-dose, trivalent, PF 6 completed Drea Allar null, [facility] 05/05/2023 10:26:27 Influenza, high-dose, trivalent, PF 5 completed Drea Allar null, [facility] 05/05/2023 10:26:27 Influenza, high-dose, trivalent, PF 4 completed Drea Allar null, [facility] 05/05/2023 10:26:27 Influenza, split virus, trivalent, preservative 3 completed Drea Allar null, [facility] 05/05/2023 10:26:27 Influenza, split virus, trivalent, preservative 9 completed Drea Allar null, [facility] 05/05/2023 10:26:27 Influenza, split virus, trivalent, preservative 3 completed Drea Allar null, [facility] 05/05/2023 10:26:27 Influenza, split virus, trivalent, preservative 8 completed Drea Allar null, [facility] 05/05/2023 10:26:27 Influenza, split virus, trivalent, preservative 3 completed Drea Allar null, [facility] 05/05/2023 10:26:27 Influenza, split virus, trivalent, preservative 7 completed Drea Allar null, [facility] 05/05/2023 10:26:27 Influenza, split virus, trivalent, preservative 2 completed Drea Allar null, [facility] 05/05/2023 10:26:27 Influenza, split virus, trivalent, preservative 0 completed Drea Allar null, [facility] 05/05/2023 10:26:27 Influenza, split virus, trivalent, preservative 5 completed Drea Allar null, [facility] 05/05/2023 10:26:27 Influenza, split virus, trivalent, PF 1 completed Drea Allar null, [facility] 05/05/2023 10:26:27 Td (adult), 5 Lf tetanus toxoid, preservative free, adsorbed 8 completed Drea Allar [facility] 05/05/2023 10:26:27 Past Encounters Encounter ID Performer Location Encounter Start Date Encounter Closed Date Diagnosis/Indication Diagnosis SNOMED-CT Code Diagnosis ICD10 Code Diagnosis IMO Codes Diagnosis Note [id number] MD Blake Jefferson [address] [place] [address] 11/18/2022 10:50:49 11/26/2022 19:16:20 Benign prostatic hyperplasia with outflow obstruction 654026266 N40.1 1. BPH- incomplete Bladder emptying (PVR = 159 mL)- increase Flomax to 0.8 mg daily Prostate s pecific antigen above reference range 151509599 R97.20 2. Elevated PSA- asymmetric al prostate (L < R)- PSA (5.7) increased- Follow-up in 3-4 months with PSA [id number] MD ORION [facility] [address] [place], [place] [address] 02/26/2023 12:02:07 03/05/2023 20:09:35 Benign prostatic hyperplasia with outflow obstruction 802037128 N40.1 1. BPH- incomplete Bladder emptying (PVR = 95 ml) - (was 159 mL)- voiding better- continue Flomax to 0.8 mg daily- check Bladder scan at Follow-up Prostate s pecific antigen above reference range 223861870 R97.20 2. Elevated PSA- asymmetric al prostate (L < R)- PSA (5.3) decreased- Follow-up in 6 months with PSA and [facility] Concerns Section Related Observation LastModified by Organization Detai ls LastModified Time None Recorded Concern Status LastModified by Organization Details LastModified Time None Recorded Advance Directives Directive None Recorded Payers Insurance Date Sequence Insurance Name Policy Number Policy Crenshaw Covered Member ID Crenshaw Member ID Guarantor Name 08/24/2023 1 MEDICA - DUAL ELIGIBLE (MEDICARE REPLACEMENT/ ADVANTAGE - HMO) Mikal Hays [id number] Mikal Hays Notes Date Note Type Note Provider Name and Address Organization Details Recorded Time 11/18/2022 text/html 82 yo male with 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 He denies family H/O prostate cancer. He is on Flomax 0.4 mg daily. - s/p TRUS bx (02/22/15) by Dr. Powers - 50 gm - + high grade PIN at Left lateral base.04/09/21 - He presents for follow-up on urination. He states his urination is okay. He voids every 2-4 hours during the day and 1x/night. He notes occasional hesitancy at night/morning and occasional urgency (morning). He denies dysuria. 11/18/22 - He presents for follow-up on urination. He voids every 1-2 hours during the day and 0-1x/night. 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 He denies family H/O prostate cancer.He is on Flomax 0.8 mg daily. - s/p TRUS bx (02/22/15) by Dr. Powers - 50 gm - + high grade PIN at Left lateral base.04/09/21 - He presents for follow-up on urination. [...] every 2-3 hours during the day and 0-1x/night.- PVR = 95ml- PSA - 5.3ng/ml PSA - 2.03 (03/25/08)- 2.40 (08/07/09)- 4.81 (11/16/14)- 3.49 (08/02/16)- 4.41 (03/25/17)- 4.71 (07/18/17)- 3.64 (01/07/18)- 3.46 (07/09/18)- 4.57 (11/19/19)- 4.49 (06/29/20)- 6.59 (07/02/21)- 5.00 (11/02/21)- 5.7 (11/18/22)- 5.3 (02/26/23)Prostate MRI (07/24/17) - 65 gm - no suspicious lesions seen Nathan Hernandez MD [address] [facility],[address], [place], [address], [facility] - [facility] 02/26/2023 13:12:08
--- OUTSIDE RECORDS SUMMARY | 2025-04-21 07:06 | XMS_ITS | Clinical Summary ---
Author Organization [email or web address] [facility] Address [facility] [place] [address] Care Team Providers Care Shipping Support Name Role Phone Manuel Lagos MD Primary Care Provider Allergies Active Allergy Reactions Criticality Noted Date Comments Sulfa (Sulfonamide Antibiotics) 07/2006 Medications acetaminophen (TYLENOL EXTRA STRGTH) 500 mg tablet Take 1 tablet by mouth every 6 hours if needed. Max acetaminophen dose: 4000mg in 24 hrs. 0 7 Active omeprazole (PRILOSEC) 40 mg Delayed-Release capsule Take 1 Capsule (40 mg) by mouth once daily. 4 Active LORazepam (ATIVAN) 0.5 mg tabIndications: Claustrophobia 1 tablet orally 1 hour before imaging, may repeat after 30 minutes if needed. 2 Tablet 4 Active tamsulosin 0.4 mg capsuleIndicati ons:Benign prostatic hyperplasia with weak urinary stream Take 2 Capsules (0.8 mg) by mouth once daily after a meal. 180 Capsule 3 5 Active warfarin (COUMADIN) 2 mg tabletIndicatio ns:Acute deep vein thrombosis (DVT) of distal vein of left lower extremity (HC),Anticoagul ation monitoring, INR range 2.5-3.5,1-5% of normal factor VIII (HC) Take by mouth 2 mg (2 mg x 1) every Mon, Chanda; 4 mg (2 mg x 2) all other days in the evening OR as directed 156 Tablet 5 Active Active Problems Problem Noted Date Diagnosed Date Depression, recurrent 05/12/2024 Systolic murmur 12/16/2023 S/P right open carpal [...] Encounters Date Type Department Care Team Description 03/30/2025 10:00 AM CDT Orders Only [facility] [address] [facility] [place] [address] [place], [place] Lab 03/30/2025 Anticoagulation (warfarin) [facility] [address] [facility] [place] [address] Nurse, haylee Anticoag Anticoagulation 03/30/2025 Travel 03/18/2025 Telephone [facility] [address] [facility] [place] [address] Manuel Lagos MD Anticoagulation (INR OVERDUE REMINDER #2 ) 01/27/2025 8:30 AM CDT Orders Only [address] [place] [address] [place] <No scans attached> 01/27/2025 Anticoagulation (warfarin) [facility] [address] [facility] [place] [address] Nurse, [facility] Anticoag Anticoagulation 01/27/2025 Travel 01/27/[address] [address] Manuel Lagos MD Refill Request (Warfarin) from Last 3 Months Immunizations Immunization Administration Dates Next Due AMB Influenza, IIV3 (Age >=3 years)(Flu Clinic Only) 03/25/2013,03/22/2011,04/19/2010 Amb Influenza, Inact (High-d ose) (Flu Clinic Only) 03/17/2014 COVID-19 VACCINE SPIKEVAX (M ODERNA 50MCG/0.5ML) 12YO+ PFS 05/12/2024,04/25/2023 Hep B (Hepatitis B (Adult) R ecombinant Adjuvanted) 05/08/2005,12/06/2004,11/06/2004 Influenza A (H1N1), Inactivated 07/24/2009 Influenza A (H1N1), Inactiva hunter (Age >=3 Years) 07/24/2009 Influenza, High-dose Inactivated 02/16/2016,10/0 01/2015,03/17/2014 Influenza, IIV3 (Age 6-35 mos) 03/22/2011 Influenza, IIV3 (Age >=3 years) 03/25/20 13,06/12/2012,04/19/2010,03/08,03/25/2008,03/27/2007,04/05/2006 ,05/02/2005,03/19/2003,04/02/2002 Influenza, Inactivated AIIV4 (Age 65+ Years) Preserv Free 04/25/2023,05/24/2022,04/09/2021,04/19 Influenza, Inactivated IIV3 (Age 65+ Years) Preserv Free 05/12/2024,04/23/2019,04/27/2018,04/22 Pneumococcal Conj 20-valent (Prevnar 20) 06/24/2022 Pneumococcal Poly,23-Valent (Pneumovax) 04/05/2006 Pneumococcal conj 13-Valent (Prevnar 13) 11/16/2014 RSV, Recombinant ADJ Reconst ituted (Arexvy 120MCG/0.5mL) 05/30/2023 Td (Age >=7 Years) 07/26/1997 Td, Preservative Free (age >= 7 Years) 8 Tdap 01/31/2016 Zoster (Shingrix-RZV, recombinant) 03/11/2024, Zoster (Zostavax-ZVL, live) 09/28/2009 Family History Medical [...] PHQ-2 Answer Date Recorded PHQ-2 TOTAL SCORE 2 11/05/2024 Social Connections Answer Date Recorded Do you [...] is your housing situation today? 1 04/05/2024 Utilities Answer Date Recorded Do you have trouble paying f or utilities (for example, heat, electricity, water, phone)? 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 on file Not on file Not on file Obstetrics History Last Filed Vital Signs Vital Sign Reading Time Taken Comments Blood Pressure 104/56 12/13/2024 8:34 AM CDT Pulse 84 12/13/2024 8:34 AM CDT Temperature 36.6 C (97.8 F) 03/24/2023 8:21 AM CDT Respiratory Rate 18 01/10/2022 12:3 0 PM CDT Oxygen Saturation 96% 05/12/2024 8:46 AM REVENUE ACCOUNTING MANAGER Inhaled Oxygen Concentration - - Weight 76.5 kg (168 lb 11.2 oz) 12/13/2024 8:34 AM CDT Height 164 cm (5' 4.57) 05/12/2024 8:46 AM REVENUE ACCOUNTING MANAGER Body Mass Index 28.45 05/12/2024 8:46 AM REVENUE ACCOUNTING MANAGER Plan of Treatment Upcoming Encounters Date Type Department Care Team (Late st Contact Info) Description 04/21/2025 2:45 PM REVENUE ACCOUNTING MANAGER Orders Only [facility] [address] [facility] [address] [place] 06/15/2025 8:15 AM REVENUE ACCOUNTING MANAGER Orders Only [facility] [address] [facility] [address] [place] Health Maintenance Due Date Last Done Comments Influenza Vaccine (#1) 2025 , 04/25/2023, 05/24/2022, Additional history exists BMI (ht and wt on same day) for age 18+ 05/12/2025 05/12/2024, 04/25/2023, 06/24/2022, Additional history exists Medicare Wellness for age 65+ 05/13/2025, 04/25/2023, 08/17/2021, Additional history exists Depression screening for age 12+ 11/05/2025 11/05/2024, 05/12/2024, 05/12/2024, Additional history exists Tetanus booster 01/30/2026 01/31/2016, 07/31, 07/26/1997 Hepatitis B series for 19+ Completed 05/08, 12/06/2004, 11/06/2004 Pneumococcal series for age 50+ Completed 06/24/2022, 11/16/2014, 04/05/2006 RSV vaccine for adults or Completed 05/30/2023 Zoster (shingles) series for age 50+ Completed 03/11/2024, 11/24/2023, 09/28/2009 Procedures Procedure Name Priority Date/Time Associated Diagnosis Comments PROTIME-INR Routine 03/30/2025 9:50 AM CDT Acute deep vein thrombosis (DVT) of distal vein of left lower extremity (HC) Anticoagulation monitoring, INR range 2.5-3.5 Leiden Factor V INR,POCT Routine 01/27/2025 8:29 AM CDT Acute deep vein thrombosis (DVT) of distal vein of left lower extremity (HC) Anticoagulation monitoring, INR range 2.5-3.5 Leiden Factor V from Last 3 Months Results * (ABNORMAL) PROTIME-INR [[id number]] - Standing Order (03/30/2025 9:50 AM CDT) INR 2.3(H) <1.3 03/30/2025 3:50 PM CDT [facility] PROTIME 26.9(H) 10.6 - 12.4 sec 03/30/2025 3:50 PM CDT [facility] Blood BLOOD SPECIMEN / Unknown [facility] / Unknown 03/30/2025 9:50 AM CDT 03/30/2025 9:50 AM CDT [facility] LABORATORY - 03/30/2025 3:50 PM CDT Therapeutic Range 2.0-3.0 for most anticoagulated patients 2.5-3.5 [...] seconds if the patient is on UFH. us Manuel Lagos MD HEMATOLOGY Final Result [facility] [address] [place] [address], [place] * (ABNORMAL) INR - POCT [[id number]] - Standing Order (01/27/2025 8:29 AM CDT) INR 2.4(H) ratio 01/27/2025 8:41 AM CDT [facility] Comment: INRs >2.9 may be falsely elevated in patients receiving either unfractionated Heparin or Low Molecular Weight Heparin. Follow up testing in a hospital laboratory may be helpful if clinically indicated. INR results of > or = 5.0 should be verified using the standard venipuncture procedure. Reference Range 0.9-1.1 Moderate-intensity Warfarin Therapy 2.0-3.0 Higher-intensity Warfarin Therapy 3.0-4.0 PROTHROMBIN TIMEP 28.7(H) 10.5 - 13.1 sec 01/27/2025 8:41 AM CDT [facility] Comment: Point of care fingerstick Prothrombin Time/INR results may vary from venous Prothrombin Time/INR methodologies. Any results exhibiting inconsistency with the patient's clinical status should be repeated using a venous Prothrombin Time/INR method. Blood BLOOD SPECIMEN / Unknown [facility] / Unknown 01/27/2025 8:29 AM CDT 01/27/2025 8:29 AM CDT us Manuel Lagos MD LABORATORY Final Result [facility] [address] [place] [address], [place] [phone] [facility] [address] [place] [address], [place] [phone] from Last 3 Months Insurance MEDICA [employer]IME SOLUTION HB MEDICARE PART B HB ONLY MEDICARE PART A HB ONLY MEDICA PRIME [employer] [place] ONLY Advance Directives * Full Code (Latest Code Status on File) Date Activated Date Inactivated Comments 01/10/2022 10:36 AM 01/10/2022 4:11 PM Question Answer Comments Code Status Discussion: Reviewed Preferences Care Teams Shipping Support Relationship Specialty Start Date End Date Manuel Lagos MD [address] [place] [address] PCP - General Family Practice 06/29/20
--- NOTE | 2025-04-21 07:11 | ED_ITS ---
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 He reports that he did some yd work about a week ago and seemed to over do it. . After that he was having a lot of pain and discomfort in his left hip. Because his left hip was bothering him, he was using his right leg for lot of his walking. In particular when he had to go up and down the steps at home he would lead with his right leg and lift his body up with that leg. He will keep his left leg more straight and would follow him up to steps. He feels like his left hip is now healing and is back to normal but he probably has overdone it. with his right leg. He has been experiencing a lot of sharp pain in the right knee and the pain radiates from the knee up into the thigh and hamstring and a little bit down into the tibia. He does not have any injury or fall. He does not really describe the pain other than it being painful. It started perhaps 2 days ago and has been getting steadily worse. Last night he fell asleep in his lazy Boy chair while watching TV and then woke up at about 2:00 a.m. with even more pain than he was having yesterday. He took some oxycodone that he had left over at home but it is not helping. He took another oxycodone about 6:00 a.m. but was not helping. He determined that he needed to come to the ER to get some pain relief. He felt like he was having too much pain to drive. He called his daughter but she was already gone to work so he decided to call the ambulance to come in. He is not having any fever. No chills. He has not noticed any rash or redness of his leg or knee. He does not have any new trouble breathing. No chest pain. No dizziness. As far as he knows he does not have any history of diabetes, cancer, [place] suppression. No history of similar previous knee pain. He has not had previ ous swelling in his knee joint. No history of gout. It sounds like he has occasionally had some leg pains in the past, but does not have any chronic arthritis and is not really seeing an orthopedist. Related Data Home Medications ?Medication ?Instructions ?Recorded ?Confirmed tamsulosin 0.4 mg capsule 0.4 mg PO DAILY 03/31/23 warfarin 2 mg tablet 2 mg PO DIRECTED 03/31/23 04/21/25 Allergies Allergy/AdvReac Type Severity Reaction Status Date / Time Sulfa (Sulfonamide Allergy Verified 04/04/24 05:53 Antibiotics) [facility] Medical History (Updated 04/21/25 @ 12:07 by Jose Luis Espinoza MD) Factor V Leiden ?D68.51 - Activated protein C resistance (ICD-10) Social History Smoking Status: Never smoker Do you use any of these nicotine containing products: None Second hand tobacco smoke exposure: No How often do you have a drink containing alcohol: never How often do you have six or more drinks on one occasion: Never AUDIT-C Alcohol total score: 0 Non-prescribed substance use: denies use service: No Exam Narrative: Exam Narrative: Constitutional: Appears well-developed and well-nourished. Alert. Uncomfortable and tremulous, butConversant. Non toxic. he is breathing easily. Sats are 93% on his baseline nasal cannula. Of note nurses were having a hard time getting a accurate oxygen be reading but when I held the patient's hand still to help suppresses tremor were able to get a good oxygen waveform and sat 93%. HENT: Head: Atraumatic. Nose: Nose normal. Mouth/Throat: Oral mucosa is clear and moist. no trismus. Pharynx normal. Tonsils symmetric. No tonsillar enlargement, erythema, or exudate. Eyes: Conjunctivae normal. EOM normal. Pupils equal, round, and reactive to light. No scleral icterus. Neck: Normal range of motion. Neck supple. No tracheal deviation present. Cardiovascular: Normal rate, regular rhythm. No gallop. No friction rub. No murmur heard. Symmetric PT artery pulses Pulmonary/Chest: Effort normal. No stridor. No respiratory distress. No wheezes. No rales. No rhonchi . No tenderness. Musculoskeletal: RUE: Normal range of motion. No tenderness. No deformity LUE: Normal range of motion. No tenderness. No deformity RLE: he is complaining of pain throughout the entire right knee and also a little bit of pain up into his distal thigh. There appears to be a knee joint effusion. I do not see any prepatellar swelling. No redness. No rash. No shingles. No abrasions. No bruising. He is tender fairly diffusely over the knee without any definite focal point tenderness. No obvious deformity. Range of motion the knee is very limited by pain. He is keeping it extended and does not want flex it from there. Right hip is nontender. Femur is normal. He does have tenderness over the distal 1/4 of his hamstring and distal 1/4 of his quad. No definite focal tenderness there. I do not see any bruising. He is mildly tender over the anterior tibia with pain radiating to the tibia area from his knee. He does not have any swelling or tenderness in the gastroc. Achilles is nontender. Ankle and foot are normal. LLE: Normal range of motion. No edema. No tenderness. No deformity Lymph: No Ascending lymphangitis Neurological: Alert and oriented to person, place, and time. Normal strength. CN II-VII intact. No sensory deficit. GCS eye subscore is 4. GCS verbal subscore is 5. GCS motor subscore is 6. Normal coordination Skin: Skin is warm and dry. No rash noted. No pallor. Normal capillary refill. Psychiatric: Normal mood. Normal affect. Const: Vital Signs, click to edit/add: Vital Signs - 24 hr 04/21/25 07:10 04/21/25 08:50 04/21/25 09:01 Temperature 98.6 F Pulse Rate 85 Pulse Rate [Pulse Oximeter] 82 Respiratory Rate 18 Blood Pressure Blood Pressure [Ri ght Forearm] 133/83 Pulse Oximetry 88 94 89 Oxygen Delivery Me thod Room Air 04/21/25 09:02 04/21/25 09:15 04/21/25 09:30 Temperature Pulse Rate 81 106 H 84 Pulse Rate [Pulse Oximeter] Respiratory Rate Blood Pressure 133/110 H Blood Pressure [Ri ght Forearm] Pulse Oximetry 94 95 96 Oxygen Delivery Me thod 04/21/25 09:32 04/21/25 09:36 04/21/25 09:37 Temperature Pulse Rate 86 86 92 Pulse Rate [Pulse Oximeter] Respiratory Rate Blood Pressure 82/71 L 145/72 H Blood Pressure [Ri ght Forearm] Pulse Oximetry 95 93 94 Oxygen Delivery Me thod 04/21/25 09:45 04/21/25 10:00 04/21/25 10:02 Temperature Pulse Rate 86 83 83 Pulse Rate [Pulse Oximeter] Respiratory Rate Blood Pressure 144/65 H Blood Pressure [Ri ght Forearm] Pulse Oximetry 92 94 90 Oxygen Delivery Me thod 04/21/25 10:15 04/21/25 10:30 04/21/25 10:33 Temperature Pulse Rate 83 80 86 Pulse Rate [Pulse Oximeter] Respiratory Rate Blood Pressure 136/70 Blood Pressure [Ri ght Forearm] Pulse Oximetry 89 93 95 Oxygen Delivery Me thod 04/21/25 10:45 04/21/25 11:00 04/21/25 11:02 Temperature Pulse Rate 81 88 Pulse Rate [Pulse Oximeter] Respiratory Rate Blood Pressure 126/54 L Blood Pressure [Ri ght Forearm] Pulse Oximetry 83 L 94 90 Oxygen Delivery Me thod 04/21/25 11:15 Temperature Pulse Rate Pulse Rate [Pulse Oximeter] Respiratory Rate Blood Pressure Blood Pressure [Ri ght Forearm] Pulse Oximetry 85 L Oxygen Delivery Me thod Course Course ED Course: Multiple rechecks. Patient was still having significant knee pain and unable to range his knee even after fentanyl and 2 doses of Dilaudid. Procedure: Right knee arthrocentesis Indication: Right knee pain with swelling and joint effusion. Right knee warmth. Rule out septic arthritis Verbal consent from the patient. Discussed risks and benefits including bleeding since he is on warfarin. Verbal consent obtained. Procedure: Sterile preparation using Betadine. Sterile technique used throughout. Using a 27 gauge half-inch needle local infiltration of 0.5% bupivacaine under the skin to create and anesthetized we will. Then using an 18 gauge 1-1/4 inch needle from a lateral/superior approach using landmark based technique we performed our centesis. I was able to get into the knee joint capsule. We were able to aspirate a total of 22 mL of turbid cloudy yellow fluid. No blood. No purulent fluid. Fluid was sent for analysis including cell counts, culture, Lyme PCR, crystal analysis. After aspirating the synovial fluid we did inject 5 mL of 0.5% bupivacaine to try to get some more pain relief. Patient tolerated the procedure well. No discomfort. No bleeding. No complications. Discussed that there is a risk that the fluid will likely reaccumulate. Recheck-discussed with Orthopedics, Dr. Esqueda He came to the ER to evaluate this patient. Given the patient's hi synovial fluid white count, even though there was not a clear clinical picture of fever and marked joint redness, he feels that it is reasonable to start the patient on IV antibiotics and taken to the OR for washout this afternoon. Discussed with our hospitalist, Kailey Rodriguez. She agrees to admit the patient for pain control on IV antibiotics after OR. Vital Signs Vital signs: Initial Vital Signs Temperature 98.6 F 04/21/25 07:10 Temperature Source Temporal Artery Scan 04/21/25 07:10 Pulse Rate 82 04/21/25 07:10 Respiratory Rate 18 04/21/25 07:10 Blood Pressure 133/83 04/21/25 07:10 Blood Pressure Mean 99 04/21/25 07:10 Blood Pressure Position Supine 04/21/25 07:10 Pulse Oximetry 88 04/21/25 07:10 Oxygen Delivery Method Room Air 04/21/25 07:10 Vital Signs Temperature 98.6 F 04/21/25 07:10 Pulse Rate 82 04/21/25 07:10 Respiratory Rate 18 04/21/25 07:10 Blood Pressure 133/83 04/21/25 07:10 Pulse Oximetry 88 04/21/25 07:10 Oxygen Delivery Method Room Air 04/21/25 07:10 Temperature 98.6 F 04/21/25 07:10 Pulse Rate 88 04/21/25 11:02 Respiratory Rate 18 04/21/25 07:10 Blood Pressure 126/54 L 04/21/25 11:02 Pulse Oximetry 85 L 04/21/25 11:15 Oxygen Delivery Method Room Air 04/21/25 07:10 Medications Administered Medications: Generic Name Dose Route Start Last Admin Trade Name Freq PRN Reason Stop Dose Admin Fentanyl 50 mcg 04/21/25 07:29 04/21/25 07:44 Fentanyl 100 Mcg/2 Ml Inj IVP 50 mcg Q5M PRN Administration Discontinued Medications Generic Name Dose Route Start Last Admin Trade Name Freq PRN Reason Stop Dose Admin Bupivacaine HCl 30 ml 04/21/25 07:31 04/21/25 07:45 Bupivacaine 0.25% 30 Ml INJECTION 04/21/25 07:32 30 ml ONCE ONE Administration Hydromorphone HCl 0.5 mg 04/21/25 08:40 04/21/25 08:42 Hydromorphone 0.5 Mg/0.5 Ml Inj IVP 04/21/25 08:41 0.5 mg ONCE ONE Administration Hydromorphone HCl 0.5 mg 04/21/25 09:20 04/21/25 10:29 Hydromorphone 0.5 Mg/0.5 Ml Inj IVP 04/21/25 09:21 0.5 mg ONCE ONE Administration Cefazolin Sodium 2 gm/ Sodium 100 mls @ 200 mls/hr 04/21/25 12:01 04/21/25 12:27 Chloride IVPB 04/21/25 12:02 Not Given ONCE ONE Oxycodone HCl 5 mg 04/21/25 10:18 04/21/25 10:26 Oxycodone 5 Mg Tablet PO 04/21/25 10:19 5 mg ONCE ONE Administration Medical Decision Making MDM Narrative Medical decision making narrative: Pleasant 85-year-old gentleman brought to the ER today by EMS from his home because of severe right knee pain. This is atraumatic and has been progressively more painful for the past 2 days or so. Patient thought that he ?over did it? couple weeks ago when he injured his left hip doing yd work and since then has been using his right leg while favoring his left leg. However a more broad differential is considered. X-rays are obtained to look for evidence for fracture and fortunately are negative. We did consider possible DVT in the right leg, however the pain really seems to stem mostly from his knee and he clearly has a knee joint effusion. He does have a history of factor 5 Leiden with previous DVTs many years ago. INR today slightly subtherapeutic at about 1.8. We did check a screening D-dimer to look for possible DVT and age adjusted D-dimer is normal. Therefore the likelihood of DVT is exceedingly low and ultrasound is not necessary. Consider crystalline arthritis versus septic arthritis. He does not have a fever but the knee is slightly warm to the touch. CRP is mildly elevated at 2.8. White count is mildly elevated 11.4. Arthrocentesis was performed [place] [address] with 94% neutrophils. This is not definitive for septic arthritis but is high enough to raise concern. Will start the patient on Ancef. Ortho consultation was undertaken and ortho came here to the ER to see the patient and will bring him to the OR this afternoon for washout. He will be admitted to the hospitalist service after OR. Lab confirms that crystalline evaluation for gout and pseudogout is undergoing but will not result until tomorrow. I have also ordered a Lyme PCR which will likely not result for 4 or 5 days. At this point we will treat empirically for a possible bacterial septic arthritis until it can be definitively ruled out and an alternative explanation for his knee pain and effusion can be determined. Discussed home care with the patient and his daughter and they are in agreement. Lab Data Labs: Lab Results 04/21/25 04/21/25 Range/Units 08:39 09:47 WBC 11.48 H (4.50-11.00) K/uL RBC 4.81 (4.30-5.90) m/uL Hgb 14.8 (13.5-17.5) gm/dL Hct 44.8 (37.0-53.0) % MCV 93 (80-100) fL MCH 31 (26-34) pg MCHC 33 (32-36) gm/dL RDW Coeff of Kimberly 12.0 (11.5-15.5) % Plt Count 253 (140-440) K/uL Neut % (Auto) 85.6 H (42.0-72.0) % Lymph % (Auto) 5.5 L (20-44) % Beckham % (Auto) 7.9 (0.0-11.0) % Eos % (Auto) 0.5 (0.0-7.0) % Baso % (Auto) 0.3 (0.0-3.0) % Neut # (Auto) 9.80 H (1.7-7.0) K/uL Lymph # (Auto) 0.60 L (0.90-2.90) K/uL Beckham # (Auto) 0.90 (0.00-0.90) K/UL Eos # (Auto) 0.10 (0.00-0.50) K/uL Baso # (Auto) 0.00 (0.00-0.30) K/uL Abs Immat Gran (auto) 0.00 (0.00-0.30) K/uL Imm/Tot Granulo (auto) 0.2 % INR 1.85 H (0.91-1.10) D-Dimer Quant (PE/DVT) 0.67 H (0.00-0.50) ug/ml Sodium 136 (135-149) mmol/L Potassium 4.5 (3.6-5.1) mmol/L Chloride 96 (96-114) mmol/L Carbon Dioxide 29 (20-32) mmol/L Anion Gap 11 (7-15) mEq/L BUN 28 (7-30) mg/dL Creatinine 1.3 (0.5-1.5) mg/dL Estimated Creat Clear 38.17 Estimated GFR 54 ml/min Glucose 124 H (60-115) mg/dL Calcium 8.6 (8.4-10.6) mg/dL Total Bilirubin 1.1 (0.1-1.5) mg/dL AST 25 (12-35) U/L ALT 19 (4-50) U/L Alkaline Phosphatase 125 (40-150) U/L C-Reactive Protein 2.8 H (0.5-1.0) mg/dL Total Protein 6.9 (6.0-8.3) g/dL Albumin 4.1 (3.3-5.0) g/dL Fluid Volume 22 Fluid Color Xanthochromic A Fluid Appearance Cloudy A Fluid WBC 36343 Cells/uL Fluid RBC 3000 Cells/uL Fluid Polynuclear WBCs 94 % Fluid Mononuclear WBCs 6 % Fluid Total Protein 2.9 gm/dL Imaging Data XR Rknee: Attestation: I have reviewed the pertinent imaging results. Radiologist's impression: Findings: Severe medial compartment joint space narrowing. Mild narrowing of the lateral compartment. Tricompartmental chondrocalcinosis. No acute fracture. Vascular calcifications in the soft tissues. Chronic changes seen at the proximal tibial tubercle. Discharge Plan Discharge Clinical Impression: Septic arthritis of knee, right Patient Disposition: Admitted As Observation
--- NOTE | 2025-04-21 07:29 | CRLHL7_ITS ---
For Patients: As a result of the Cures Act, medical imaging exams and procedure reports are released immediately into your electronic medical record. You may view this report before your referring provider. If you have questions, please contact your health care provider. Indication: Knee pain. Technique: Three radiographs of the right knee. Comparison: None. Findings: Severe medial compartment joint space narrowing. Mild narrowing of the lateral compartment. Tricompartmental chondrocalcinosis. No acute fracture. Vascular calcifications in the soft tissues. Chronic changes seen at the proximal tibial tubercle. Dictated by Buzz Escobedo MD @ 04/21/2025 8:16:02 AM (Electronically Signed)
[2025-04-21] MEDS: BUPIVACAINE 0.25% 30 ML INJECTION (07:45)
[2025-04-21 08:57] LABS: Albumin* 4.1 g/dL (3.3-5.0); Chloride* 96 mmol/L (96-114)
[2025-04-21 08:58] LABS: Potassium* 4.5 mmol/L (3.6-5.1); Sodium* 136 mmol/L (135-149)
[2025-04-21 09:00] LABS: Blood Urea Nitrogen* 28 mg/dL (7-30); Creatinine* 1.3 mg/dL (0.5-1.5); Est. Creatinine Clearance* 38.17; Estimated Glomerular Filt Rate 54 ml/min; INR 1.85 (0.91-1.10); Prothrombin Time 22.4 Seconds
[2025-04-21 09:01] LABS: Alanine Aminotransferase* 19 U/L (4-50); Alkaline Phosphatase* 125 U/L (40-150); Anion Gap 11 mEq/L (7-15); Aspartate Amino Transferase* 25 U/L (12-35); Bilirubin Total* 1.1 mg/dL (0.1-1.5); Calcium* 8.6 mg/dL (8.4-10.6); Carbon Dioxide* 29 mmol/L (20-32); Glucose* 124 mg/dL (60-115); Total Protein* 6.9 g/dL (6.0-8.3)
[2025-04-21 09:03] LABS: D Dimer Quantitative* 0.67 ug/ml (0.00-0.50)
[2025-04-21 10:29] LABS: Mononuclear WBC Body Fluid* 6 %; Polynuclear WBC Body Fluid* 94 %; RBC, Body Fluid* 3000 Cells/uL
[2025-04-21 10:37] LABS: BF Clarity* Cloudy; BF Total Volume* 22
[2025-04-21 10:42] LABS: Body Fluid Total Protein* 2.9 gm/dL
[2025-04-21 12:28] LABS: Hematocrit* 44.8 % (37.0-53.0); Hemoglobin* 14.8 gm/dL (13.5-17.5); Immature Granulocytes Pct Auto 0.2 %; Mean Corpuscular HGB Conc 33 gm/dL (32-36); Mean Corpuscular Hemoglobin 31 pg (26-34); Mean Corpuscular Volume 93 fL (80-100); RDW Coefficient of Variation % 12.0 % (11.5-15.5); Red Blood Count* 4.81 m/uL (4.30-5.90); White Blood Count* 11.48 K/uL (4.50-11.00)
[2025-04-21 12:29] LABS: Immature Granulocytes Abs Auto 0.00 K/uL (0.00-0.30); Lymphocytes Absolute Auto 0.60 K/uL (0.90-2.90); Slide Review Reflex No
--- NOTE | 2025-04-21 13:17 | P.ANES_ITS ---
Anesthesia Charges Start Date/Time Anesthesia Start Date: 04/21/25 Anesthesia Start Time: 13:53 Stop Date/Time Anesthesia Stop Date: 04/21/25 Anesthesia Stop Time: 14:46 Summary Extremes of Age - Over 70 or under 1: MDA Coding CPT Codes CPT Codes: ANESTH KNEE JOINT SURGERY - 66712 ([id number]) P3 - PATIENT W/SEVERE SYS DISEASE, QK - FOREIGN FOOD SPECIALTY COOK 2-4 CNCRNT ANES PROC, QX - COMPOSITE LAMINATOR SVC W/ MD MED DIRECTION Additional Codes: Summary - Extremes of Age - Over 70 or under 1: MDA ([id number])
--- NOTE | 2025-04-21 13:17 | W.ANESCHARGE ---
Anesthesia Charges Start Date/Time Anesthesia Start Date: 04/21/25 Anesthesia Start Time: 13:53 Stop Date/Time Anesthesia Stop Date: 04/21/25 Anesthesia Stop Time: 14:46 Summary Extremes of Age - Over 70 or under 1: MDA Coding CPT Codes CPT Codes: ANESTH KNEE JOINT SURGERY - 95918 ([id number]) P3 - PATIENT W/SEVERE SYS DISEASE, QK - MENTAL HEALTH PROGRAM SPECIALIST 2-4 CNCRNT ANES PROC, QX - RIVET HEATER GAS SVC W/ MD MED DIRECTION Additional Codes: Summary - Extremes of Age - Over 70 or under 1: MDA ([id number])
[2025-04-21 13:40] LABS: Erythrocyte SedimentationRate* 8 mm/hr (2-15)
[2025-04-21] MEDS: LACTATED RINGERS 1000 ML 1,000 ML 100 ML IV ×2 (13:53→15:11)
--- NOTE | 2025-04-21 14:04 | PM.ORCN ---
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 He presented to [facility] today on 04/21/2025 by EMS with pain involving his right knee and right leg. He reports that he did some yard work about a week ago and seemed to over do it. After that he was having a lot of pain and discomfort in his left hip. Because his left hip was bothering him, he was using his right leg for lot of his walking. In particular when he had to go up and down the steps at home he would lead with his right leg and lift his body up with that leg. He feels like his left hip is now healing and is back to normal but he probably has overdone it with his right leg. He has been experiencing a lot of sharp pain in the right knee and the pain radiates from the knee up into the thigh and hamstring and a little bit down into the tibia. No reported injury or fall. He does not really describe the pain other than it being painful. It started perhaps 2 days ago and has been getting steadily worse. Last night he fell asleep in his lazy Boy chair while watching TV and then woke up at about 2:00 a.m. with even more pain than he was having yesterday. He took some oxycodone that he had left over at home but it is not helping. He took another oxycodone about 6:00 a.m. but was not helping. He determined that he needed to come to the ER to get some pain relief. He felt like he was having too much pain to drive. He is not having any fever, chills, or rigors at this time. He notes no rash or redness of his leg or knee. He does not have any new trouble breathing. No chest pain. No dizziness. No history of gout. It sounds like he has occasionally had some leg pains in the past, but does not have any chronic arthritis and is not really seeing an orthopedist. Knee aspiration from the emergency department revealed cloudy yellow fluid in abundance. Also 70,000+ WBCs on the synovial fluid aspiration. High% are PMNs. [facility] Medical History (Updated 04/21/25 @ 14:47 by Edgar Macias MD) Factor V Leiden ?D68.51 - Activated protein C resistance (ICD-10) Social History Smoking Status: Never smoker Do you use any of these nicotine containing products: None Second hand tobacco smoke exposure: No How often do you have a drink containing alcohol: never How often do you have six or more drinks on one occasion: Never AUDIT-C Alcohol total score: 0 Non-prescribed substance use: denies use service: No Meds Home Medications and Allergies Home Medications ?Medication ?Instructions ?Recorded ?Confirmed ?Type tamsulosin 0.4 mg capsule 0.4 mg PO DAILY 03/31/23 04/21/25 History warfarin 2 mg tablet 2 mg PO DIRECTED 03/31/23 04/21/25 History Allergies Allergy/AdvReac Type Severity Reaction Status Date / Time Sulfa (Sulfonamide Allergy Verified 04/04/24 05:53 Antibiotics) Ortho Exam Narrative Exam Narrative: He is alert and orient x3. No acute distress. Nonlabored breathing. Lying supine on the medical bed in the emergency department. He is cooperative and able to provide the history. Right knee exam shows large effusion. No significant erythema. There is increased warmth. Range of motion beyond a 5-10 degree arc is very painful for the patient today. Neurologic intact distally in all 5 dermatomes and myotomes right lower extremity. Palpable DP and PT pulse. He is not able to demonstrate gait or station due to the right knee pain. Const Vital Signs, click to edit/add: Vital Signs - 24 hr 04/21/25 07:10 04/21/25 08:50 04/21/25 09:01 Temperature 98.6 F Pulse Rate 85 Pulse Rate [Pulse Oximeter] 82 Respiratory Rate 18 Blood Pressure Blood Pressure [Right Forearm] 133/83 Pulse Oximetry 88 94 89 Oxygen Delivery Method Room Air 04/21/25 09:02 04/21/25 09:15 04/21/25 09:30 Temperature Pulse Rate 81 106 H 84 Pulse Rate [Pulse Oximeter] Respiratory Rate Blood Pressure 133/110 H Blood Pressure [Right Forearm] Pulse Oximetry 94 95 96 Oxygen Delivery Method 04/21/25 09:32 04/21/25 09:36 04/21/25 09:37 Temperature Pulse Rate 86 86 92 Pulse Rate [Pulse Oximeter] Respiratory Rate Blood Pressure 82/71 L 145/72 H Blood Pressure [Right Forearm] Pulse Oximetry 95 93 94 Oxygen Delivery Method 04/21/25 09:45 04/21/25 10:00 04/21/25 10:02 Temperature Pulse Rate 86 83 83 Pulse Rate [Pulse Oximeter] Respiratory Rate Blood Pressure 144/65 H Blood Pressure [Right Forearm] Pulse Oximetry 92 94 90 Oxygen Delivery Method 04/21/25 10:15 04/21/25 10:30 04/21/25 10:33 Temperature Pulse Rate 83 80 86 Pulse Rate [Pulse Oximeter] Respiratory Rate Blood Pressure 136/70 Blood Pressure [Right Forearm] Pulse Oximetry 89 93 95 Oxygen Delivery Method 04/21/25 10:45 04/21/25 11:00 04/21/25 11:02 Temperature Pulse Rate 81 88 Pulse Rate [Pulse Oximeter] Respiratory Rate Blood Pressure 126/54 L Blood Pressure [Right Forearm] Pulse Oximetry 83 L 94 90 Oxygen Delivery Method 04/21/25 11:15 04/21/25 11:33 04/21/25 12:02 Temperature Pulse Rate Pulse Rate [Pulse Oximeter] Respiratory Rate Blood Pressure 102/61 133/60 Blood Pressure [Right Forearm] Pulse Oximetry 85 L Oxygen Delivery Method 04/21/25 12:02 04/21/25 12:02 04/21/25 12:33 Temperature Pulse Rate Pulse Rate [Pulse Oximeter] Respiratory Rate Blood Pressure 133/60 133/60 146/65 H Blood Pressure [Right Forearm] Pulse Oximetry Oxygen Delivery Method 04/21/25 12:54 04/21/25 13:01 04/21/25 13:02 Temperature Pulse Rate 97 87 86 Pulse Rate [Pulse Oximeter] Respiratory Rate Blood Pressure 148/66 H Blood Pressure [Right Forearm] Pulse Oximetry 88 90 91 Oxygen Delivery Method 04/21/25 13:15 04/21/25 13:30 04/21/25 13:32 Temperature Pulse Rate 85 83 89 Pulse Rate [Pulse Oximeter] Respiratory Rate Blood Pressure 138/81 Blood Pressure [Right Forearm] Pulse Oximetry 92 94 95 Oxygen Delivery Method 04/21/25 13:33 Temperature Pulse Rate 82 Pulse Rate [Pulse Oximeter] Respiratory Rate Blood Pressure Blood Pressure [Right Forearm] Pulse Oximetry 95 Oxygen Delivery Method Results Labs Labs: Laboratory Results - last 48 hr 04/21/25 04/21/25 08:39 09:47 WBC 11.48 H RBC 4.81 Hgb 14.8 Hct 44.8 MCV 93 MCH 31 MCHC 33 RDW Coeff of Kimberly 12.0 Plt Count 253 Neut % (Auto) 85.6 H Lymph % (Auto) 5.5 L [place] % (Auto) 7.9 Eos % (Auto) 0.5 Baso % (Auto) 0.3 Neut # (Auto) 9.80 H Lymph # (Auto) 0.60 L [place] # (Auto) 0.90 Eos # (Auto) 0.10 Baso # (Auto) 0.00 Abs Immat Gran (auto) 0.00 Imm/Tot Granulo (auto) 0.2 ESR 8 INR 1.85 H D-Dimer Quant (PE/DVT) 0.67 H Sodium 136 Potassium 4.5 Chloride 96 Carbon Dioxide 29 Anion Gap 11 BUN 28 Creatinine 1.3 Estimated Creat Clear 38.17 Estimated GFR 54 Glucose 124 H Calcium 8.6 Total Bilirubin 1.1 AST 25 ALT 19 Alkaline Phosphatase 125 C-Reactive Protein 2.8 H Total Protein 6.9 Albumin 4.1 Fluid Volume 22 Fluid Color Xanthochromic A Fluid Appearance Cloudy A Fluid WBC 56779 Fluid RBC 3000 Fluid Polynuclear WBCs 94 Fluid Mononuclear WBCs 6 Fluid Total Protein 2.9 Diagnostic results Additional Comments: WBC 11.48 ESR 8 CRP 2.8 Right knee synovial fluid analysis shows the following: WBCs 71,021 PMNs 94% 3 radiographic views of the right knee [facility] dated 04/21/2025 were ordered by different provider and reviewed by me. Severe osteoarthrosis with erosions on the medial tibia and medial femur, large tricompartmental osteophytosis, also chondrocalcinosis lateral compartment. Large ossicle seen anterior to the tibial tubercle which may represent [place]-Schlatter's verses a remote tibial tubercle avulsion with malunion. Patella baja with Insall-Salvati 0.83 (Granite [place] Greg[place] 0.85) Large effusion. No acute fractures or avulsions otherwise. No signs of AVN. Assessment and Plan Assessment and plan (1) Septic arthritis of knee, right: Status: Acute (2) Osteoarthritis of right knee: Status: Acute Plan It was helpful to examine him here in the emergency room. In some respects the suspicion for infection is slightly low given relatively low ESR, CRP, and no significant erythema about the right knee. However, he does have severe pain with any knee range of motion, there is increased warmth, and the synovial fluid returned with 71,000+ WBCs of which 94% are PMNs. Clearly he has known right knee osteoarthritis. The chondrocalcinosis is interesting. He may have a crystalline arthropathy at this time with or without a superimposed septic right knee arthritis. I think it is prudent to perform a right knee arthroscopic lavage today. I have talked with the and coordinated care with both the emergency department physician and anesthesia team. While the patient did eat some putting approximately 1 hour prior to my evaluation, waiting for a prolonged time has its disadvantages as well given the concern for septic right knee. Therefore, I have communicated the risks and benefits of ongoing nonoperative management, delayed surgery intervention, for more urgent surgery to the patient and his daughter. They state understanding. This includes local risks (e.g. Infection, wound healing issues, ongoing pain, recurrent) as well as systemic risks (e.g. VTE, [place], stroke, aspiration. This is I believe all questions were answered. Indeed will plan for right knee arthroscopic lavage today. Thereafter, I would anticipate patient would benefit from an overnight hospital stay and likely 2 nights stay in the hospital for IV antibiotics until cultures return
--- NOTE | 2025-04-21 14:52 | SUR.PHASEI ---
Patient denies pain or nausea waking up. States he is warm enough.
--- NOTE | 2025-04-21 14:55 | PM.ORPRC ---
Procedure Note Date of procedure: 04/21/25 Procedure: PREOPERATIVE DIAGNOSIS: 1. Right knee septic arthritis POSTOPERATIVE DIAGNOSIS: 1. Right knee septic arthritis versus crystalline arthropathy 2. Right knee loose body 3. Right knee medial meniscus tear PROCEDURE: 1. Right knee arthroscopic lavage for suspected septic arthritis 2. Right knee arthroscopic loose body removal 3. Right knee arthroscopic partial medial meniscectomy SURGEON: Edgar Macias M.D. LORRY WEIGHER: NGA [place]. Of note, an paraprofessional education assistant was critical for this case to aid in patient positioning, knee manipulation, instrument exchange, and closure. ANESTHESIA: Spinal EBL: 25 ml TOURNIQUET: 30 min at 250 torr COMPLICATIONS: None evident INDICATIONS: The patient is a pleasant 85-year-old male who has experienced right knee pain particularly with any twisting or turning. Physical exam was concerning for medial meniscus tear, this was confirmed on MRI. Additionally, attempted nonoperative management has been tried, and failed. Thus, surgery was recommended. FINDINGS: Cloudy, yellowish, abundant non malodorous fluid was encountered and washed out from the knee. A sample of this was sent for cultures including Gram stain, aerobic and anaerobic. Beyond that, there was full-thickness chondral loss diffusely throughout the medial compartment. Nearly absent medial meniscus involving the posterior horn and midbody. The anterior horn did have some meniscus tissue. Significant erosions of the medial femur and medial tibial plateau consistent with advanced OA. There was chunks of meniscus tissue within the notch somewhat adherent to synovial tissue adjacent to the ACL/PCL. ACL was slightly striated consistent with likely partial tearing/attrition. PCL was intact otherwise. Significant patellofemoral chondromalacia (grade 3-4) as well and to lesser degree lateral compartment chondromalacia (grade 2). Intact lateral meniscus. White crystal deposits were seen diffusely throughout the whole knee articular cartilage and even the synovium. No significant erythema within the synovium suggesting it was not significantly inflamed at this time. DESCRIPTION OF PROCEDURE: After a thorough discussion of risks, benefits, and alternatives, the patient was brought to the operating room and placed upon the operating table. Induction of anesthesia was undertaken as previously noted. 2g iv Ancef was administered after the sample of fluid was obtained and sent for cultures. Appropriate time-out was performed identifying proper patient, site, and procedure. The right lower extremity was prepped and draped in the appropriate sterile fashion using ChloraPrep. The limb was exsanguinated and tourniquet inflated. Anterolateral and anteromedial portals were established with an 11 blade, and a diagnostic arthroscopy was performed. This identified the findings as noted above. Following the diagnostic arthroscopy, an arthroscopic lavage was performed utilizing 6 L normal saline. Additionally, the medial meniscus was cleaned up with the Excalibur shaver. A pituitary rongeur was utilized to remove the loose bodies that were somewhat adherent to the synovial of tissue in the notch. The largest this measured 6 x 9 mm. This felt to be cartilage tissue likely meniscus based tissue. The shaver was also utilized for a partial medial meniscectomy of the anterior horn to midbody portion. The posterior horn was significantly absent already. Now, there was approximately 20% of the overall meniscus remaining after debridement. At this stage, the shaver was reinserted into the suprapatellar pouch and all remaining meniscal debris was evacuated. Instruments were removed, excess fluid was drained, and closure performed with 3-0 nylon. Dressings were applied, the tourniquet deflated, and the patient was awoken from anesthesia and transferred to the PACU in stable condition. PLAN: 1. Weightbear as tolerated operative extremity. Crutch / walker ambulation assistance PRN. 2. Ice, acetominophen and/or ibuprofen, and Oxycodone for pain as needed. 3. Knee range of motion and quad sets/straight leg raise regularly 4. Admission to the hospital, inpatient, for IV antibiotics until cultures return either with specificity or show no culture growth. Crystals will likely return in approximately 2 days. This would be helpful as well. 5. Upon discharge, when he is medically stable and cultures have returned, then anticipate follow up with PA visit in 1-2 weeks for a wound check, suture removal, and possibly to initiate physical therapy.
--- NOTE | 2025-04-21 15:02 | P.ANES_ITS ---
Anesthesia Charges Start Date/Time Anesthesia Start Date: 04/21/25 Anesthesia Start Time: 13:53 Stop Date/Time Anesthesia Stop Date: 04/21/25 Anesthesia Stop Time: 14:46 Summary Emergency: INSTRUMENT LENS GRINDER APPRENTICE Extremes of Age - Over 70 or under 1: INSTRUMENT LENS GRINDER APPRENTICE Coding CPT Codes CPT Codes: ANESTH KNEE JOINT SURGERY - 40284 ([id number]) P3 - PATIENT W/SEVERE SYS DISEASE, QK - ISOTOPE HYDROLOGIST 2-4 CNCRNT ANES PROC, QX - INSTRUMENT LENS GRINDER APPRENTICE SVC W/ MD MED DIRECTION Additional Codes: Summary - Emergency: INSTRUMENT LENS GRINDER APPRENTICE ([id number]) Summary - Extremes of Age - Over 70 or under 1: INSTRUMENT LENS GRINDER APPRENTICE ([id number])
--- NOTE | 2025-04-21 15:02 | W.ANESCHARGE ---
Anesthesia Charges Start Date/Time Anesthesia Start Date: 04/21/25 Anesthesia Start Time: 13:53 Stop Date/Time Anesthesia Stop Date: 04/21/25 Anesthesia Stop Time: 14:46 Summary Emergency: FURNACE MASON Extremes of Age - Over 70 or under 1: FURNACE MASON Coding CPT Codes CPT Codes: ANESTH KNEE JOINT SURGERY - 33244 ([id number]) P3 - PATIENT W/SEVERE SYS DISEASE, QK - ENTERPRISE ACCOUNT EXECUTIVE 2-4 CNCRNT ANES PROC, QX - FURNACE MASON SVC W/ MD MED DIRECTION Additional Codes: Summary - Emergency: FURNACE MASON ([id number]) Summary - Extremes of Age - Over 70 or under 1: FURNACE MASON ([id number])
--- NOTE | 2025-04-21 15:16 | SUR.PHASEI ---
Patient meets discharge criteria from PACU
--- NOTE | 2025-04-21 16:46 | PM.IMHP1 ---
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 He has a history of Factor V Leiden, previous DVTs (anticoagulated on Coumadin), BPH on Tamsulosin, psoriasis, stage 3 CKD. ER: - right knee pain with effusion; 22 mL of turbid yellow fluid returned on joint aspirate - seen by Dr. Macias of Orthopedic surgery in the emergency room and taken straight to the OR for a right knee arthroscopic lavage, loose body removal, partial medial meniscectomy When I see patient in floor, he is feeling better. He has not had any recent dental procedures, does not have any chest pain pain, did not have any skin breakdown or injury to his right knee. [place] with exposures to ducks, chickens, and cats. History is reviewed and updated below, Dr. Lagos is PCP. Review of Systems Status of ROS: Reports: 10 or more systems reviewed and unremarkable except as noted in History and below Medical Decision Making Medical Decision Making Code Status: Full, does not desire long-term intubation During This Stay, Who Would You Like To Make Decisions For You In The Event You Are Unable To Make Them For Yourself?: jocelyne Arias [facility] Medical History (Updated 04/21/25 @ 19:22 by Angelina Gary MD) Anticoagulated on Coumadin ?Z79.01 - retirement (current) use of anticoagulants (ICD-10) Cerebellar stroke ?I63.9 - Cerebral infarction, unspecified (ICD-10) Prediabetes ?R73.03 - Prediabetes (ICD-10) Depression ?F32.A - Depression, unspecified (ICD-10) Psoriasis ?L40.9 - Psoriasis, unspecified (ICD-10) Stage 3a chronic kidney disease (CKD) ?N18.31 - Chronic kidney disease, stage 3a (ICD-10) DVT (deep venous thrombosis) ?I82.409 - Acute embolism and thrombosis of unspecified deep veins of unspecified lower extremity (ICD-10) Factor V Leiden ?D68.51 - Activated protein C resistance (ICD-10) Surgical History (Updated 04/21/25 @ 19:11 by Angelina Gary MD) S/P tonsillectomy ?Z90.89 - Acquired absence of other organs (ICD-10) H/O hernia repair ?Z98.890 - Other specified postprocedural states (ICD-10) ?Z87.19 - Personal history of other diseases of the digestive system (ICD-10) History of carpal tunnel release of both wrists ?Z98.890 - Other specified postprocedural states (ICD-10) Social History (Updated 04/21/25 @ 19:15 by Angelina Gary MD) Narrative: Lives with on farm near [place], daughter Juana would be MDM if needed. Nonsmoker, no ETOH. 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 Smoking Status: Never smoker Do you use any of these nicotine containing products: None Second hand tobacco smoke exposure: No How often do you have a drink containing alcohol: never How often do you have six or more drinks on one occasion: Never AUDIT-C Alcohol total score: 0 Non-prescribed substance use: denies use service: No Meds Home Medications and Allergies Home Medications ?Medication ?Instructions ?Recorded ?Confirmed ?Type tamsulosin 0.4 mg capsule 0.4 mg PO DAILY 03/31/23 04/21/25 History warfarin 2 mg tablet 2 mg PO DIRECTED 03/31/23 04/21/25 History acetaminophen 325 mg tablet 650 mg PO Q6H PRN 04/21/25 04/21/25 History (Tylenol) omeprazole 20 mg tablet,delayed 20 mg PO DAILY 04/21/25 04/21/25 History release Allergies Allergy/AdvReac Type Severity Reaction Status Date / Time Sulfa (Sulfonamide Allergy Verified 04/04/24 05:53 Antibiotics) Exam Narrative: Exam Narrative: GEN: Alert and oriented, laying comfortably in bed HEENT: Edentulous EOMIs bilaterally, no scleral icterus CV: RRR, No concerning murmurs R: LCTA bilaterally Ext: Right lower extremity is wrapped, dressing is clean and dry Skin: Dry skin, scattered bruising on extremities Neuro: No focal deficits Psych: Appropriate Const: Vital Signs, click to edit/add: Vital Signs - 24 hr 04/21/25 07:10 04/21/25 08:50 04/21/25 09:01 Temperature 98.6 F Pulse Rate 85 Pulse Rate [Pulse Oximeter] 82 Respiratory Rate 18 Blood Pressure Blood Pressure [Ri ght Arm] Blood Pressure [Ri ght Forearm] 133/83 Pulse Oximetry 88 94 89 Oxygen Delivery Me thod Room Air 04/21/25 09:02 04/21/25 09:15 04/21/25 09:30 Temperature Pulse Rate 81 106 H 84 Pulse Rate [Pulse Oximeter] Respiratory Rate Blood Pressure 133/110 H Blood Pressure [Ri ght Arm] Blood Pressure [Ri ght Forearm] Pulse Oximetry 94 95 96 Oxygen Delivery Me thod 04/21/25 09:32 04/21/25 09:36 04/21/25 09:37 Temperature Pulse Rate 86 86 92 Pulse Rate [Pulse Oximeter] Respiratory Rate Blood Pressure 82/71 L 145/72 H Blood Pressure [Ri ght Arm] Blood Pressure [Ri ght Forearm] Pulse Oximetry 95 93 94 Oxygen Delivery Me thod 04/21/25 09:45 04/21/25 10:00 04/21/25 10:02 Temperature Pulse Rate 86 83 83 Pulse Rate [Pulse Oximeter] Respiratory Rate Blood Pressure 144/65 H Blood Pressure [Ri ght Arm] Blood Pressure [Ri ght Forearm] Pulse Oximetry 92 94 90 Oxygen Delivery Me thod 04/21/25 10:15 04/21/25 10:30 04/21/25 10:33 Temperature Pulse Rate 83 80 86 Pulse Rate [Pulse Oximeter] Respiratory Rate Blood Pressure 136/70 Blood Pressure [Ri ght Arm] Blood Pressure [Ri ght Forearm] Pulse Oximetry 89 93 95 Oxygen Delivery Me thod 04/21/25 10:45 04/21/25 11:00 04/21/25 11:02 Temperature Pulse Rate 81 88 Pulse Rate [Pulse Oximeter] Respiratory Rate Blood Pressure 126/54 L Blood Pressure [Ri ght Arm] Blood Pressure [Ri ght Forearm] Pulse Oximetry 83 L 94 90 Oxygen Delivery Me thod 04/21/25 11:15 04/21/25 11:33 04/21/25 12:02 Temperature Pulse Rate Pulse Rate [Pulse Oximeter] Respiratory Rate Blood Pressure 102/61 133/60 Blood Pressure [Ri ght Arm] Blood Pressure [Ri ght Forearm] Pulse Oximetry 85 L Oxygen Delivery Me thod 04/21/25 12:02 04/21/25 12:02 04/21/25 12:33 Temperature Pulse Rate Pulse Rate [Pulse Oximeter] Respiratory Rate Blood Pressure 133/60 133/60 146/65 H Blood Pressure [Ri ght Arm] Blood Pressure [Ri ght Forearm] Pulse Oximetry Oxygen Delivery Me thod 04/21/25 12:54 04/21/25 13:01 04/21/25 13:02 Temperature Pulse Rate 97 87 86 Pulse Rate [Pulse Oximeter] Respiratory Rate Blood Pressure 148/66 H Blood Pressure [Ri ght Arm] Blood Pressure [Ri ght Forearm] Pulse Oximetry 88 90 91 Oxygen Delivery Me thod 04/21/25 13:15 04/21/25 13:30 04/21/25 13:32 Temperature Pulse Rate 85 83 89 Pulse Rate [Pulse Oximeter] Respiratory Rate Blood Pressure 138/81 Blood Pressure [Ri ght Arm] Blood Pressure [Ri ght Forearm] Pulse Oximetry 92 94 95 Oxygen Delivery Me thod 04/21/25 13:33 04/21/25 14:43 04/21/25 14:45 Temperature 99.0 F Pulse Rate 82 106 H 102 H Pulse Rate [Pulse Oximeter] Respiratory Rate 16 16 Blood Pressure 138/81 141/84 H Blood Pressure [Ri ght Arm] Blood Pressure [Ri ght Forearm] Pulse Oximetry 95 94 94 Oxygen Delivery Me thod Room Air 04/21/25 14:50 04/21/25 14:55 04/21/25 15:00 Temperature Pulse Rate 98 92 79 Pulse Rate [Pulse Oximeter] Respiratory Rate 24 16 16 Blood Pressure 121/89 127/65 134/78 Blood Pressure [Ri ght Arm] Blood Pressure [Ri ght Forearm] Pulse Oximetry 95 94 96 Oxygen Delivery Me thod Room Air 04/21/25 15:05 04/21/25 15:10 04/21/25 15:15 Temperature 98.4 F Pulse Rate 84 85 78 Pulse Rate [Pulse Oximeter] Respiratory Rate 19 22 20 Blood Pressure 136/86 140/105 H 128/68 Blood Pressure [Ri ght Arm] Blood Pressure [Ri ght Forearm] Pulse Oximetry 94 95 94 Oxygen Delivery Me thod Room Air 04/21/25 15:30 04/21/25 15:46 04/21/25 16:00 Temperature 97.0 F L Pulse Rate Pulse Rate [Pulse Oximeter] 80 76 85 Respiratory Rate 16 16 16 Blood Pressure Blood Pressure [Ri ght Arm] 129/85 118/65 117/62 Blood Pressure [Ri ght Forearm] Pulse Oximetry 90 91 89 Oxygen Delivery Me thod Room Air Room Air Room Air 04/21/25 16:17 Temperature Pulse Rate Pulse Rate [Pulse Oximeter] 85 Respiratory Rate 16 Blood Pressure Blood Pressure [Ri ght Arm] 129/64 Blood Pressure [Ri ght Forearm] Pulse Oximetry 91 Oxygen Delivery Nm thod Room Air Hospitalist - H&P: Result Labs Labs: Short CBC 04/21/25 Range/Units 08:39 WBC 11.48 H (4.50-11.00) K/uL Hgb 14.8 (13.5-17.5) gm/dL Hct 44.8 (37.0-53.0) % Plt Count 253 (140-440) K/uL BMP 04/21/25 08:39 Sodium 136 Potassium 4.5 Chloride 96 Carbon Dioxide 29 BUN 28 Creatinine 1.3 Glucose 124 H Calcium 8.6 Liver Function 04/21/25 Range/Units 08:39 Total Bilirubin 1.1 (0.1-1.5) mg/dL AST 25 (12-35) U/L ALT 19 (4-50) U/L Alkaline Phosphatase 125 (40-150) U/L Albumin 4.1 (3.3-5.0) g/dL
[2025-04-21] MEDS: TAMSULOSIN HCL 0.4 MG CAPSULE 0.8 MG PO (20:46)
[2025-04-21] MEDS: SENNOSIDES 1 TAB TABLET 2 TAB PO (20:46)
[2025-04-21] MEDS: CEFAZOLIN 2 GM in 0.9 % SODIUM CHLORIDE Mini-bag 100 ML IVPB (20:47)
[2025-04-21] MEDS: WARFARIN 2 MG TABLET PO (20:47)
[2025-04-22] VITALS (9 sets, daily range): BP systolic 104–130; BP diastolic 22–78; PULSE 67–87; RESP 16–18; TEMP 36.3–36.7; O2SAT 92–97
[2025-04-22] MEDS: ONDANSETRON 2 MG/ML inj 4 MG IVP ×3 (00:16→18:05)
[2025-04-22] MEDS: CEFAZOLIN 2 GM in 0.9 % SODIUM CHLORIDE Mini-bag 100 ML IVPB ×3 (03:04→19:00)
--- NOTE | 2025-04-22 05:01 | PC.NURSE ---
Patient SBA with gait belt and walker, weight bearing as tolerated to Right knee. At 21oo patient bladder scanned for 575, stated he had not urinated in the last 16 hours and was starting to feel pressure, Flomax given, and straight cathed for 600 clear joselin urine. Patient stated he had fish from dinner stuck in throat so he coughed and got it out around 0200. PRN Zofran effective at this time for his nausea. Fluids infusing @ 75/hr, Acewrap to Right knee dry and intact. culture pending for septic knee.
--- NOTE | 2025-04-22 05:11 | PC.NURSE ---
Patient ambulates with assist of one to two. Patient agitated with any nursing interventions or assistance, refusing vitals and pulling at IV. Bed and chair alarm in place for lack of safety awareness and delirium. Patient is not cooperative with cares and will try to hit or punch staff. NS @ 125/hr infusing, antibiotics received as ordered. Patient rested for longer intervals than last night. shingles to left face any eye open to air. snack offered and received before bed.
[2025-04-22] MEDS: OMEPRAZOLE 20 MG CAPSULE DR PO ×2 (06:10→17:47)
[2025-04-22 06:30] LABS: Hematocrit* 42.1 % (37.0-53.0); Hemoglobin* 14.0 gm/dL (13.5-17.5); Immature Granulocytes Abs Auto 0.00 K/uL (0.00-0.30); Immature Granulocytes Pct Auto 0.3 %; Lymphocytes Absolute Auto 0.50 K/uL (0.90-2.90); Mean Corpuscular HGB Conc 33 gm/dL (32-36); Mean Corpuscular Hemoglobin 31 pg (26-34); Mean Corpuscular Volume 92 fL (80-100); RDW Coefficient of Variation % 12.2 % (11.5-15.5); Red Blood Count* 4.57 m/uL (4.30-5.90); Slide Review Reflex No; White Blood Count* 12.32 K/uL (4.50-11.00)
[2025-04-22 06:41] LABS: Albumin* 3.4 g/dL (3.3-5.0); Chloride* 101 mmol/L (96-114); Potassium* 4.4 mmol/L (3.6-5.1); Sodium* 134 mmol/L (135-149)
[2025-04-22 06:42] LABS: INR 2.33 (0.91-1.10); Prothrombin Time 26.7 Seconds
[2025-04-22 06:44] LABS: Alanine Aminotransferase* 13 U/L (4-50); Alkaline Phosphatase* 88 U/L (40-150); Anion Gap 6 mEq/L (7-15); Aspartate Amino Transferase* 21 U/L (12-35); Bilirubin Total* 1.0 mg/dL (0.1-1.5); Blood Urea Nitrogen* 25 mg/dL (7-30); Carbon Dioxide* 27 mmol/L (20-32); Creatinine* 1.2 mg/dL (0.5-1.5); Est. Creatinine Clearance* 41.35; Estimated Glomerular Filt Rate 60 ml/min; Total Protein* 6.1 g/dL (6.0-8.3)
[2025-04-22 06:45] LABS: Calcium* 8.8 mg/dL (8.4-10.6); Glucose* 146 mg/dL (60-115)
[2025-04-22] MEDS: SENNOSIDES 1 TAB TABLET 2 TAB PO (09:29)
--- NOTE | 2025-04-22 12:37 | PM.ORPN ---
Subjective Subjective Time Seen by Provider: 07:10 Date Seen: 04/22/25 Principal diagnosis: Status post right knee arthroscopy, lavage, loose body removal, PMM Interval history: Mikal is comfortable this morning. He states his right knee is much improved since prior to surgery. He is not able to flex and extend his knee. He is able to the weightbear. Ortho Exam Narrative Exam Narrative: Alert and oriented x3. Patient is in no acute distress. Converses without labored breathing. Hearing is grossly intact. Examination of the right knee shows Mario bandage is well positioned. The dressing is not removed. He is able to straight leg raise without pain. He is able to flex and extend his ankles without pain. He is easily able to range the knee without discomfort. CMS intact right lower extremity. Calves are soft and nontender. Const Vital Signs, click to edit/add: Vital Signs - 24 hr 04/21/25 12:54 04/21/25 13:01 04/21/25 13:02 Temperature Pulse Rate 97 87 86 Pulse Rate [Pulse Oximeter] Respiratory Rate Blood Pressure 148/66 H Blood Pressure [Right Arm] Pulse Oximetry 88 90 91 Oxygen Delivery Method 04/21/25 13:15 04/21/25 13:30 04/21/25 13:32 Temperature Pulse Rate 85 83 89 Pulse Rate [Pulse Oximeter] Respiratory Rate Blood Pressure 138/81 Blood Pressure [Right Arm] Pulse Oximetry 92 94 95 Oxygen Delivery Method 04/21/25 13:33 04/21/25 14:43 04/21/25 14:45 Temperature 99.0 F Pulse Rate 82 106 H 102 H Pulse Rate [Pulse Oximeter] Respiratory Rate 16 16 Blood Pressure 138/81 141/84 H Blood Pressure [Right Arm] Pulse Oximetry 95 94 94 Oxygen Delivery Method Room Air 04/21/25 14:50 04/21/25 14:55 04/21/25 15:00 Temperature Pulse Rate 98 92 79 Pulse Rate [Pulse Oximeter] Respiratory Rate 24 16 16 Blood Pressure 121/89 127/65 134/78 Blood Pressure [Right Arm] Pulse Oximetry 95 94 96 Oxygen Delivery Method Room Air 04/21/25 15:05 04/21/25 15:10 04/21/25 15:15 Temperature 98.4 F Pulse Rate 84 85 78 Pulse Rate [Pulse Oximeter] Respiratory Rate 19 22 20 Blood Pressure 136/86 140/105 H 128/68 Blood Pressure [Right Arm] Pulse Oximetry 94 95 94 Oxygen Delivery Method Room Air 04/21/25 15:30 04/21/25 15:46 04/21/25 16:00 Temperature 97.0 F L Pulse Rate Pulse Rate [Pulse Oximeter] 80 76 85 Respiratory Rate 16 16 16 Blood Pressure Blood Pressure [Right Arm] 129/85 118/65 117/62 Pulse Oximetry 90 91 89 Oxygen Delivery Method Room Air Room Air Room Air 04/21/25 16:17 04/21/25 16:30 04/21/25 16:45 Temperature Pulse Rate Pulse Rate [Pulse Oximeter] 85 78 84 Respiratory Rate 16 16 16 Blood Pressure Blood Pressure [Right Arm] 129/64 115/61 124/88 Pulse Oximetry 91 91 91 Oxygen Delivery Method Room Air Room Air Room Air 04/21/25 16:45 04/21/25 17:15 04/21/25 17:45 Temperature Pulse Rate Pulse Rate [Pulse Oximeter] 89 80 82 Respiratory Rate 16 16 16 Blood Pressure Blood Pressure [Right Arm] 124/84 138/83 119/64 Pulse Oximetry 94 92 94 Oxygen Delivery Method Room Air Room Air Room Air 04/21/25 18:00 04/21/25 19:08 04/21/25 20:08 Temperature 97.0 F L 97.0 F L Pulse Rate Pulse Rate [Pulse Oximeter] 78 78 78 Respiratory Rate 16 16 16 Blood Pressure Blood Pressure [Right Arm] 108/81 119/62 119/62 Pulse Oximetry 96 96 96 Oxygen Delivery Method Room Air Room Air Room Air 04/21/25 21:08 04/21/25 23:00 04/22/25 01:08 Temperature 97.4 F L 97.4 F L Pulse Rate Pulse Rate [Pulse Oximeter] 78 71 Respiratory Rate 16 16 16 Blood Pressure Blood Pressure [Right Arm] 139/67 112/61 Pulse Oximetry 97 97 92 Oxygen Delivery Method Room Air Room Air Room Air 04/22/25 03:53 04/22/25 07:00 04/22/25 07:50 Temperature 97.4 F L Pulse Rate Pulse Rate [Pulse Oximeter] 67 81 Respiratory Rate 16 18 Blood Pressure Blood Pressure [Right Arm] 130/72 126/22 L Pulse Oximetry 92 97 94 Oxygen Delivery Method Room Air Room Air Room Air 04/22/25 10:52 Temperature 97.8 F Pulse Rate Pulse Rate [Pulse Oximeter] 73 Respiratory Rate 16 Blood Pressure Blood Pressure [Right Arm] 123/78 Pulse Oximetry 96 Oxygen Delivery Method Room Air Assessment and Plan Assessment and plan (1) Arthritis, septic, knee: Problem details: - presumed, ddx includes crystalline arthropathy - continue Ancef, await cultures - PT ordered Status: Acute Assessment and Plan: Cultures show no growth as of yet. Crystals have not returned from lab yet. He has shown remarkable improvement in right knee symptoms since prior to surgery yesterday. He can weight bear as tolerated on the right lower extremity and use crutches or walker for ambulation assistance if needed. Ice, Tylenol in oxycodone for pain. He is on warfarin. He can work on range of motion of the knee, quad sets. He will continue on IV antibiotics until cultures returned with specificity or show culture growth. He will return to clinic in 1-2 weeks for wound check, suture removal, possibly initiating outpatient physical therapy at that time. Orthopedics will see him over the weekend if needed. Please page Lala if needed. Dressing can be removed on Friday. Apply Band-Aids or other dressing as needed. 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
--- NOTE | 2025-04-22 13:13 | PM.IMPN1 ---
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 - check abdominal flat and upright films Status: Acute (7) Urinary retention: Problem comment: - continue outpatient tamsulosin dosing - If patient continues to retain urine, place Tse and have patient follow-up with his urologist in a week Status: Acute Plan - per above (abx, await cultures, PT) - daughter Juana updated bedside, questions answered Total Time Spent Total Time Spent: Today I spent 50 minutes seeing the patient, discussing with the patient and daughter, reviewing Expanse and EPIC notes/diagnostics/labs, discussing the care plan with our care team that includes social work, PT/OT, pharmacy, RT, long-term and documenting my impressions and plan in the medical record. Subjective Time Seen by Provider: 11:05 Date Seen: 04/22/25 Interval history: Alen's daughter, Juana, who is well known to me from our hospital seafood and service meat manager, is here with him today. Alen's nurse notes that he had 2 episodes of urinary retention since yesterday for which he had to be straight catheterized for, the most recent 1 at 10:30 a.m. drained 1200 mL. He had abdominal pain with that. He had opioids yesterday for pain, but none of those overnight or today. He also notes that he had an episode overnight where he vomited. He says he gets this at home and right now he has very little appetite. At home when he feels this way he starts taking Prilosec, which he started doing about a week and half ago. He says he has had about 3 barium swallow studies in the past which have showed ulcers, but nothing recently. Does not recall ever being tested for H pylori. 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 He tells me that he likes to keep busy. I noted that he is on warfarin and is at risk for bleeding heavily if he were to get bumped or cut. He acknowledged this risk but states that he likes to keep busy and can not see himself cutting back on anything at this point. Pt endorses h/o elevated PSA and prostate issues for which he regularly sees a urologist. He and his daughter also asked a few questions which I answered. Exam Narrative: Exam Narrative: General: No acute distress. Awake, alert, oriented. No pallor. No jaundice. Oropharynx: Clear. Mucous membranes moist. Cardiovascular: Regular rate and rhythm. No murmurs, gallops, or rubs. Respiratory: Clear to auscultation bilaterally. No wheezes or crackles. Abdomen: Bowel sounds present. Soft, nondistended, nontender. Extremities: Mario wrap over RLE C/D/I. No lower extremity ankle edema. CMS intact in RLE. Const: Vital Signs, click to edit/add: Vital Signs - 24 hr 04/21/25 13:15 04/21/25 13:30 04/21/25 13:32 Temperature Pulse Rate 85 83 89 Pulse Rate [Pulse Oximeter] Respiratory Rate Blood Pressure 138/81 Blood Pressure [Ri ght Arm] Pulse Oximetry 92 94 95 Oxygen Delivery Me thod 04/21/25 13:33 04/21/25 14:43 04/21/25 14:45 Temperature 99.0 F Pulse Rate 82 106 H 102 H Pulse Rate [Pulse Oximeter] Respiratory Rate 16 16 Blood Pressure 138/81 141/84 H Blood Pressure [Ri ght Arm] Pulse Oximetry 95 94 94 Oxygen Delivery Me thod Room Air 04/21/25 14:50 04/21/25 14:55 04/21/25 15:00 Temperature Pulse Rate 98 92 79 Pulse Rate [Pulse Oximeter] Respiratory Rate 24 16 16 Blood Pressure 121/89 127/65 134/78 Blood Pressure [Ri ght Arm] Pulse Oximetry 95 94 96 Oxygen Delivery Me thod Room Air 04/21/25 15:05 04/21/25 15:10 04/21/25 15:15 Temperature 98.4 F Pulse Rate 84 85 78 Pulse Rate [Pulse Oximeter] Respiratory Rate 19 22 20 Blood Pressure 136/86 140/105 H 128/68 Blood Pressure [Ri ght Arm] Pulse Oximetry 94 95 94 Oxygen Delivery Me thod Room Air 04/21/25 15:30 04/21/25 15:46 04/21/25 16:00 Temperature 97.0 F L Pulse Rate Pulse Rate [Pulse Oximeter] 80 76 85 Respiratory Rate 16 16 16 Blood Pressure Blood Pressure [Ri ght Arm] 129/85 118/65 117/62 Pulse Oximetry 90 91 89 Oxygen Delivery Me thod Room Air Room Air Room Air 04/21/25 16:17 04/21/25 16:30 04/21/25 16:45 Temperature Pulse Rate Pulse Rate [Pulse Oximeter] 85 78 84 Respiratory Rate 16 16 16 Blood Pressure Blood Pressure [Ri ght Arm] 129/64 115/61 124/88 Pulse Oximetry 91 91 91 Oxygen Delivery Me thod Room Air Room Air Room Air 04/21/25 16:45 04/21/25 17:15 04/21/25 17:45 Temperature Pulse Rate Pulse Rate [Pulse Oximeter] 89 80 82 Respiratory Rate 16 16 16 Blood Pressure Blood Pressure [Ri ght Arm] 124/84 138/83 119/64 Pulse Oximetry 94 92 94 Oxygen Delivery Me thod Room Air Room Air Room Air 04/21/25 18:00 04/21/25 19:08 04/21/25 20:08 Temperature 97.0 F L 97.0 F L Pulse Rate Pulse Rate [Pulse Oximeter] 78 78 78 Respiratory Rate 16 16 16 Blood Pressure Blood Pressure [Ri ght Arm] 108/81 119/62 119/62 Pulse Oximetry 96 96 96 Oxygen Delivery Me thod Room Air Room Air Room Air 04/21/25 21:08 04/21/25 23:00 04/22/25 01:08 Temperature 97.4 F L 97.4 F L Pulse Rate Pulse Rate [Pulse Oximeter] 78 71 Respiratory Rate 16 16 16 Blood Pressure Blood Pressure [Ri ght Arm] 139/67 112/61 Pulse Oximetry 97 97 92 Oxygen Delivery Me thod Room Air Room Air Room Air 04/22/25 03:53 04/22/25 07:00 04/22/25 07:50 Temperature 97.4 F L Pulse Rate Pulse Rate [Pulse Oximeter] 67 81 Respiratory Rate 16 18 Blood Pressure Blood Pressure [Ri ght Arm] 130/72 126/22 L Pulse Oximetry 92 97 94 Oxygen Delivery Me thod Room Air Room Air Room Air 04/22/25 10:52 Temperature 97.8 F Pulse Rate Pulse Rate [Pulse Oximeter] 73 Respiratory Rate 16 Blood Pressure Blood Pressure [Ri ght Arm] 123/78 Pulse Oximetry 96 Oxygen Delivery Me thod Room Air Labs Labs: Laboratory Results - last 24 hr 04/21/25 04/21/25 04/22/25 08:39 09:47 05:24 WBC 12.32 H RBC 4.57 Hgb 14.0 Hct 42.1 MCV 92 MCH 31 MCHC 33 RDW Coeff of Kimberly 12.2 Plt Count 254 Neut % (Auto) 86.8 H Lymph % (Auto) 3.9 L [place] % (Auto) 8.8 Eos % (Auto) 0.0 Baso % (Auto) 0.2 Neut # (Auto) 10.70 H Lymph # (Auto) 0.50 L [place] # (Auto) 1.10 H Eos # (Auto) 0.00 Baso # (Auto) 0.00 Abs Immat Gran (auto) 0.00 Imm/Tot Granulo (auto) 0.3 ESR 8 INR 2.33 H Sodium 134 L Potassium 4.4 Chloride 101 Carbon Dioxide 27 Anion Gap 6 L BUN 25 Creatinine 1.2 Estimated Creat Clear 41.35 Estimated GFR 60 Glucose 146 H Calcium 8.8 Total Bilirubin 1.0 AST 21 ALT 13 Alkaline Phosphatase 88 Total Protein 6.1 Albumin 3.4 Fluid Crystal ID See Scanned Report
--- NOTE | 2025-04-22 13:36 | CRLHL7_ITS ---
For Patients: As a result of the Century Cures Act, medical imaging exams and procedure reports are released immediately into your electronic medical record. You may view this report before your referring provider. If you have questions, please contact your health care provider. Indication: Nausea/vomiting. Technique: Abdomen 2 view. Comparison: None. Findings/Impression: Bowel: Bowel pattern is normal. Moderate colonic stool burden. Soft tissues: No sign of free air. No sign of soft tissue mass. No suspicious calcifications. Bones: Unremarkable for age. Dictated by Cam Osborn MD @ 04/22/2025 2:27:42 PM (Electronically Signed)
--- NOTE | 2025-04-22 15:40 | PC.NURSE ---
Pt is pleasant to care for. VSS. Afebrile. A&Ox4. Denies pain to the right knee, dressing remains clean, dry and intact with YOLANDA wrap over. Pt reports continuous nausea and abdominal discomfort throughout shift, unresolved with zofran. Pt is unable to eat without the urge to throw up, he has had two small emesis episodes today. He is passing gas, bowel sounds are active, no BM this shift, abdomen soft. Pt is unable to void today as well, at approximately 1000 pt reported he didn't feel like he was emptying his bladder entirely, he voided 75cc, bladder scan showed 920cc, pt was straight cathed with 1200cc output; provider was notified. Pt is ambulating well with walker and standby assist.
[2025-04-22] MEDS: TAMSULOSIN HCL 0.4 MG CAPSULE 0.8 MG PO (17:47)
[2025-04-22] MEDS: WARFARIN 2 MG TABLET 4 MG PO (17:47)
[2025-04-22] MEDS: METOCLOPRAMIDE 10 MG TABLET PO (20:01)
[2025-04-23] VITALS (9 sets, daily range): BP systolic 97–115; BP diastolic 47–68; PULSE 64–91; RESP 16–18; TEMP 36.6–36.9; O2SAT 90–95
[2025-04-23] MEDS: lidocaine HCL 2 % JELLY (TOP) STERILE 6 ML UR (01:05)
[2025-04-23] MEDS: CEFAZOLIN 2 GM in 0.9 % SODIUM CHLORIDE Mini-bag 100 ML IVPB ×3 (04:05→20:38)
[2025-04-23] MEDS: OMEPRAZOLE 20 MG CAPSULE DR PO ×2 (06:03→17:13)
[2025-04-23 06:50] LABS: INR 2.86 (0.91-1.10); Prothrombin Time 31.2 Seconds
--- NOTE | 2025-04-23 06:58 | PC.NURSE ---
[id number]: Patient with nausea at beginning of shift. Improved after Reglan administration. Starting to tolerate PO intake. A&Ox3. Dedrick patent. A1/walker/GB. Walked halls x1. Active ice applied. Denies CP. Declined PRN pain medications. R.knee dressing C/D/I.
[2025-04-23] MEDS: ACETAMINOPHEN 325 MG TABLET 650 MG PO (07:47)
[2025-04-23] MEDS: SENNOSIDES 1 TAB TABLET 2 TAB PO ×2 (09:04→20:37)
--- NOTE | 2025-04-23 12:04 | PM.IMPN1 ---
Assessment and Plan Assessment and plan (1) Arthritis, septic, knee: Problem comment: - presumed, ddx includes crystalline arthropathy - 04/22 no crystals seen in fluid analysis - cultures neg at 48 hours, had difficulty with oral intake yesterday, so far tolerating breakfast this morning, continue IV ancef yet today and anticipate change to oral antibiotics tomorrow if doing well. - continue physical therapy Status: Acute (2) Nausea & vomiting: Problem comment: - Possibly anesthesia related vs exacerbation of more chronic condition (PUD) - increase omeprazole to b.i.d. - check abdominal flat and upright films - these were okay - 04/23 N/V resolved. Continue omeprazole BID, Reglan prn. F/u as outpatient with PCP for further w/u of chronic issue with exacerbation (likely due to anesthesia, opioids) Status: Acute (3) Urinary retention: Problem comment: - Failed to void yesterday. Patrick placed. 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 - pharmacy to manage, INR therapeutic today Status: Chronic (6) History of carpal tunnel release of both wrists: Status: Chronic (7) Stage 3a chronic kidney disease (CKD): Problem comment: - stable Status: Chronic Plan - per above (abx, await cultures, PT) - daughter Juana updated bedside, questions answered Total Time Spent Total Time Spent: Today I spent 50 minutes seeing the patient, discussing with the patient and daughter, reviewing [facility] and [facility] notes/diagnostics/labs, discussing the care plan with our care team that includes social work, PT/OT, pharmacy, RT, [place] [facility] and documenting my impressions and plan in the medical record. Subjective Time Seen by Provider: 10:15 Date Seen: 04/23/25 Interval history: Oziel tells me he is feeling much better today. He denies pain. He ate a good breakfast this morning and says that the nausea and vomiting seem to be gone. We also discussed urinary retention and the patrick catheter he currently has. Nurse noted his rhythm seemed irregular when she was listening to his heart this morning. I called his daughter, Juana, to give her an update and answer her questions. She was concerned about sepsis with the urinary catheter. Exam Narrative: Exam Narrative: General: No acute distress. Awake, alert, oriented. No pallor. No jaundice. Cardiovascular: Regular rate and rhythm. No murmurs, gallops, or rubs. Respiratory: Clear to auscultation bilaterally. No wheezes or crackles. Abdomen: Bowel sounds present. Soft, nondistended, nontender. Extremities: Mario wrap over RLE C/D/I. No lower extremity ankle edema. CMS intact in RLE. Const: Vital Signs, click to edit/add: Vital Signs - 24 hr 04/22/25 16:00 04/22/25 16:00 04/22/25 19:51 Temperature 97.9 F 98.1 F Pulse Rate [Pulse Oximeter] 87 80 Respiratory Rate 18 18 Blood Pressure [Le ft Arm] 124/73 Blood Pressure [Ri ght Arm] 125/67 Pulse Oximetry 94 94 93 Oxygen Delivery Me thod Room Air Room Air Room Air 04/22/25 22:06 04/22/25 22:57 04/23/25 03:00 Temperature 97.9 F 97.9 F Pulse Rate [Pulse Oximeter] 68 68 Respiratory Rate 18 18 18 Blood Pressure [Le ft Arm] 108/59 L Blood Pressure [Ri ght Arm] 104/61 Pulse Oximetry 93 95 92 Oxygen Delivery Me thod Room Air Room Air Room Air 04/23/25 07:00 04/23/25 07:36 04/23/25 11:39 Temperature 97.9 F 98.0 F Pulse Rate [Pulse Oximeter] 91 64 Respiratory Rate 16 16 18 Blood Pressure [Le ft Arm] 105/47 L Blood Pressure [Ri ght Arm] 97/58 L Pulse Oximetry 90 90 93 Oxygen Delivery Me thod Room Air Room Air Room Air Labs Labs: Laboratory Results - last 24 hr 04/23/25 05:51 INR 2.86 H 04/23/2025 EKG: Sinus rhythm with premature atrial complexes, 74 beats per minute, otherwise normal EKG.
[2025-04-23 13:33] LABS: Lyme ELISA Reflex 0.53 IV (<=0.90)
--- NOTE | 2025-04-23 16:21 | PC.NURSE ---
End of shift-- Pleasant and cooperative, alert and oriented patient. VSS and pt is afebrile. SPO2 maintained >90% on RA. Pain in right knee appears well managed with Tylenol only. Dressing C/D/I. CMS WNL. LS CTA. HR irregular this morning. was notified and EKG completed showing PACs. He denied any nausea today and has tolerated a regular diet without difficulty. He is passing flatus, but has not had a BM. Pt was given scheduled Senna and a glass of prune juice. He was up to the BR and chair with SBA and walker and tolerated it very well. Report to TANISHA Ferreira.
[2025-04-23] MEDS: TAMSULOSIN HCL 0.4 MG CAPSULE 0.8 MG PO (17:13)
[2025-04-23] MEDS: WARFARIN 2 MG TABLET 4 MG PO (17:13)
[2025-04-24] VITALS: RESP 18
[2025-04-24 02:09] VITALS: BP 107/64; PULSE 74; RESP 18; TEMP 36.6; O2SAT 94
[2025-04-24] MEDS: ACETAMINOPHEN 325 MG TABLET 650 MG PO ×2 (02:22→15:07)
[2025-04-24] MEDS: CEFAZOLIN 2 GM in 0.9 % SODIUM CHLORIDE Mini-bag 100 ML IVPB (03:00)
--- NOTE | 2025-04-24 05:18 | PC.NURSE ---
End of shift report :?AxOx4.?VSS. Afebrile. Rates pain from a 0-2/10 on his R knee, prn?tylenol?offered and?given with?relief. R knee wrap is C/D/I.?Active ice applied.?Pt ambulated 1A, GB, W.?Pt denies nausea. No BM overnight.?Dedrick is intact and?patent. Call light within reach.?
[2025-04-24] MEDS: OMEPRAZOLE 20 MG CAPSULE DR PO (06:10)
[2025-04-24 06:41] LABS: Hematocrit* 40.7 % (37.0-53.0); Hemoglobin* 13.4 gm/dL (13.5-17.5); Immature Granulocytes Abs Auto 0.01 K/uL (0.00-0.30); Immature Granulocytes Pct Auto 0.1 %; Mean Corpuscular HGB Conc 33 gm/dL (32-36); Mean Corpuscular Hemoglobin 31 pg (26-34); Mean Corpuscular Volume 93 fL (80-100); RDW Coefficient of Variation % 12.3 % (11.5-15.5); Red Blood Count* 4.38 m/uL (4.30-5.90); White Blood Count* 8.22 K/uL (4.50-11.00)
[2025-04-24 06:54] LABS: Chloride* 99 mmol/L (96-114); Sodium* 133 mmol/L (135-149)
[2025-04-24 06:55] LABS: Potassium* 4.1 mmol/L (3.6-5.1)
[2025-04-24 06:58] LABS: Anion Gap 6 mEq/L (7-15); Blood Urea Nitrogen* 25 mg/dL (7-30); Calcium* 8.1 mg/dL (8.4-10.6); Carbon Dioxide* 28 mmol/L (20-32); Creatinine* 1.1 mg/dL (0.5-1.5); Est. Creatinine Clearance* 45.11; Estimated Glomerular Filt Rate 66 ml/min; Glucose* 108 mg/dL (60-115)
[2025-04-24 07:00] VITALS: BP 120/82; PULSE 78; RESP 18; TEMP 36.6; O2SAT 95
[2025-04-24 07:02] LABS: Lymphocytes Absolute Auto 1.00 K/uL (0.90-2.90)
[2025-04-24 07:03] LABS: Slide Review Reflex No
[2025-04-24 07:23] LABS: INR 2.87 (0.91-1.10); Prothrombin Time 31.3 Seconds
[2025-04-24] MEDS: SENNOSIDES 1 TAB TABLET 2 TAB PO (08:39)
--- NOTE | 2025-04-24 08:50 | PM.ORPN ---
Subjective Subjective Time Seen by Provider: 08:51 Date Seen: 04/24/25 Principal diagnosis: Status post right knee arthroscopy, lavage, loose body removal, PMM Interval history: Alen's right knee has no pain. He would like to move around more. He states he has to have someone with him to walk. He would like to do this on his own. He Feels able. Ortho Exam Narrative Exam Narrative: Alert and oriented x3. Patient is in no acute distress. Converses without labored breathing. Hearing is grossly intact. Ambulates with a walker. Examination of the right knee shows no erythema or warmth or sign of infection. Effusion is present. Bandages have been removed. Nylon sutures close to portal incisions. No drainage. He is able to flex and extend his knee without pain. Calves are soft and nontender. CMS intact. Const Vital Signs, click to edit/add: Vital Signs - 24 hr 04/23/25 11:39 04/23/25 15:00 04/23/25 15:33 Temperature 98.0 F 98.0 F Pulse Rate [Pulse Oximeter] 64 73 Respiratory Rate 18 18 18 Blood Pressure [Left Arm] Blood Pressure [Right Arm] 97/58 L 107/68 Pulse Oximetry 93 93 95 Oxygen Delivery Method Room Air Room Air Room Air 04/23/25 16:00 04/23/25 19:00 04/23/25 23:00 Temperature 98.1 F 98.4 F Pulse Rate [Pulse Oximeter] 73 78 77 Respiratory Rate 18 16 18 Blood Pressure [Left Arm] 111/56 L 115/60 Blood Pressure [Right Arm] Pulse Oximetry 91 91 Oxygen Delivery Method Room Air Room Air 04/23/25 23:00 04/24/25 00:00 04/24/25 02:09 Temperature 98 F Pulse Rate [Pulse Oximeter] 74 Respiratory Rate 18 18 18 Blood Pressure [Left Arm] Blood Pressure [Right Arm] 107/64 Pulse Oximetry 91 94 Oxygen Delivery Method Room Air Room Air 04/24/25 07:00 04/24/25 07:00 04/24/25 07:00 Temperature 97.8 F Pulse Rate [Pulse Oximeter] 78 78 Respiratory Rate 18 18 Blood Pressure [Left Arm] 120/82 Blood Pressure [Right Arm] Pulse Oximetry 95 95 Oxygen Delivery Method Room Air Room Air Documenting provider has reviewed patient's vital signs: yes Assessment and Plan Assessment and plan (1) Arthritis, septic, knee: Problem details: - presumed, ddx includes crystalline arthropathy - 04/22 no crystals seen in fluid analysis - cultures neg at 48 hours, had difficulty with oral intake yesterday, so far tolerating breakfast this morning, continue IV ancef yet today and anticipate change to oral antibiotics tomorrow if doing well. - continue physical therapy Status: Acute Assessment and Plan: Labs show no clinically significant crystals seen. G stain shows no organisms seen. Anaerobic culture no anaerobes isolated at 48 hours. Aerobe culture no growth after 48 hours. Alen will be discharged on oral antibiotics likely today or tomorrow. Weightbear as tolerated right lower extremity, ambulate as tolerated, activities as tolerated. I placed a 4 x 4 Mepilex. This is waterproof. He will leave this on. He will be removed in clinic. It can be removed if it becomes compromised. He can continue to work on range of motion of the knee.
[2025-04-24 10:25] LABS: Anaplasma phagocyt PCR Not Detected
[2025-04-24 10:32] LABS: H pylori Ag Stool* Negative (Negative)
[2025-04-24] MEDS: cefTRIAXone 2 GM in 0.9 % SODIUM CHLORIDE Mini-bag 100 ML IVPB (10:39)
[2025-04-24 11:00] VITALS: BP 111/71; PULSE 64; RESP 16; TEMP 36.5; O2SAT 95
--- NOTE | 2025-04-24 12:02 | PM.DS1 ---
DS: Providers Provider Time Seen by Provider: 11:00 Date Seen: 04/24/25 Date of admission: 04/21/25 16:34 Primary care physician: Manuel Lagos MD Admitting Clinician: Angelina Gary MD Consults: 04/21/25 15:23 Consult to Physical Therapy [CONS] Routine Comment: Reason(s) for PT Consult:: Evaluate and Treat Any Restrictions?:: Wt Bearing as Tolerated Attending Physician on discharge: Piper Manning MD Date of Discharge: 04/24/25 DS: Diagnosis Discharge Diagnosis (1) Arthritis, septic, knee: Status: Acute Problem details: - presumed, ddx includes crystalline arthropathy - 04/22 no crystals seen in fluid analysis - cultures neg at 72 hours, CRP more elevated, remains afebrile and no leukocytosis. Since we do not have an identified pathogen, and MRSA screen is negative, I will treat with 3rd gen cephalosporin for 2-4 weeks. I will give him a prescription for 2 weeks and have him follow up with ortho (with whom I have spoken today about this plan) and have them decide if he will need 4 weeks and if he can tolerate it from a GI standpoint. I spoke with patient and his daughter and asked him to use a probiotic daily also. - physical therapy reassessed today and he was provided with a walker for homegoing; he does not need ongoing therapy. (2) Nausea & vomiting: Status: Acute Problem details: - Possibly anesthesia related vs exacerbation of more chronic condition (PUD) - increase omeprazole to b.i.d. - check abdominal flat and upright films - these were okay - 04/23 N/V resolved. Continue omeprazole BID, Reglan prn. F/u as outpatient with PCP for further w/u of chronic issue with exacerbation (likely due to anesthesia, opioids) - 04/24 remains resolved. Encouraged patient to f/u with PCP if this issue arises again. (3) Urinary retention: Status: Acute Problem details: - Failed to void 04/22. Patrick placed. Follow-up with his urologist in a 7-10 days, continue tamsulosin. 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 He has a history of Factor V Leiden, previous DVTs (anticoagulated on Coumadin), BPH on Tamsulosin, psoriasis, stage 3 CKD. ER: - right knee pain with effusion; 22 mL of turbid yellow fluid returned on joint aspirate - seen by Dr. Macias of Orthopedic surgery in the emergency room and taken straight to the OR for a right knee arthroscopic lavage, loose body removal, partial medial meniscectomy When I see patient in floor, he is feeling better. He has not had any recent dental procedures, does not have any chest pain pain, did not have any skin breakdown or injury to his right knee[place], [place], and cats. Oziel had nausea, vomiting, and persistant urinary retention the day after surgery. A patrick catheter was placed. He otherwise did well and ambulated well with a walker. He is discharged in improved condition. Please see diagnoses above for further details. Status at Discharge Functional status at discharge: uses cane/walker Time Spent with Patient Time attestation: Total time spent providing and/or coordinating discharge services: Today I spent 40 minutes seeing and discharging the patient, discussing the patient and his daughter, discussing with the ortho team, reviewing [facility] and [facility] notes/diagnostics/labs, discussing the care plan with our care team that includes social work, PT/OT, pharmacy, RT, longterm and documenting my impressions and plan in the medical record. Exam Narrative: Exam Narrative: General: No acute distress. Awake, alert, oriented. No pallor. No jaundice. Cardiovascular: Regular rate and rhythm. No murmurs, gallops, or rubs. Respiratory: Clear to auscultation bilaterally. No wheezes or crackles. Abdomen: Bowel sounds present. Soft, nondistended, nontender. Extremities: Mepilex over right knee is C/D/I. No lower extremity ankle edema. Const: Vital Signs, click to edit/add: Vital Signs - 24 hr 04/23/25 15:00 04/23/25 15:33 04/23/25 16:00 Temperature 98.0 F Pulse Rate [Pulse Oximeter] 73 73 Respiratory Rate 18 18 18 Blood Pressure [Le ft Arm] Blood Pressure [Ri ght Arm] 107/68 Pulse Oximetry 93 95 Oxygen Delivery Me thod Room Air Room Air 04/23/25 19:00 04/23/25 23:00 04/23/25 23:00 Temperature 98.1 F 98.4 F Pulse Rate [Pulse Oximeter] 78 77 Respiratory Rate 16 18 18 Blood Pressure [Le ft Arm] 111/56 L 115/60 Blood Pressure [Ri ght Arm] Pulse Oximetry 91 91 91 Oxygen Delivery Me thod Room Air Room Air Room Air 04/24/25 00:00 04/24/25 02:09 04/24/25 07:00 Temperature 98 F Pulse Rate [Pulse Oximeter] 74 Respiratory Rate 18 18 Blood Pressure [Le ft Arm] Blood Pressure [Ri ght Arm] 107/64 Pulse Oximetry 94 95 Oxygen Delivery Me thod Room Air Room Air 04/24/25 07:00 04/24/25 07:00 04/24/25 11:00 Temperature 97.8 F 97.7 F Pulse Rate [Pulse Oximeter] 78 78 64 Respiratory Rate 18 18 16 Blood Pressure [Le ft Arm] 120/82 Blood Pressure [Ri ght Arm] 111/71 Pulse Oximetry 95 95 Oxygen Delivery Me thod Room Air Room Air DS: Data Data Completed and Pending Completed studies during hospitalization: 04/23/2025 EKG: Sinus rhythm with premature atrial complexes, 74 beats per minute, otherwise normal EKG. Ordering Physician: Jose Luis Espinoza M.D. Date of Service: 04/21/25 Procedure(s): XR knee RT 3V Accession Number(s): [id number] cc: Manuel Lagos M.D.; Jose Luis Espinoza M.D.~ For Patients: As a result of the Century Cures Act, medical imaging exams and procedure reports are released immediately into your electronic medical record. You may view this report before your referring provider. If you have questions, please contact your health care provider. Indication: Knee pain. Technique: Three radiographs of the right knee. Comparison: None. Findings: Severe medial compartment joint space narrowing. Mild narrowing of the lateral compartment. Tricompartmental chondrocalcinosis. No acute fracture. Vascular calcifications in the soft tissues. Chronic changes seen at the proximal tibial tubercle. Dictated by Buzz Escobedo MD @ 04/21/2025 8:16:02 AM (Electronically Signed) Ordering Physician: Piper Manning M.D. Date of Service: 04/22/25 Procedure(s): XR abdomen min 2V Accession Number(s): [id number] cc: Manuel Lagos M.D.; Piper Manning M.D.~ For Patients: As a result of the Cures Act, medical imaging exams and procedure reports are released immediately into your electronic medical record. You may view this report before your referring provider. If you have questions, please contact your health care provider. Indication: Nausea/vomiting. Technique: Abdomen 2 view. Comparison: None. Findings/Impression: Bowel: Bowel pattern is normal. Moderate colonic stool burden. Soft tissues: No sign of free air. No sign of soft tissue mass. No suspicious calcifications. Bones: Unremarkable for age. Dictated by Cam Osborn MD @ 04/22/2025 2:27:42 PM (Electronically Signed) Labs on day of discharge: Labs from last 24 hours 04/24/25 04/24/25 04/21/25 09:30 06:05 08:39 WBC 8.22 RBC 4.38 Hgb 13.4 L Hct 40.7 MCV 93 MCH 31 MCHC 33 RDW Coeff of Kimberly 12.3 Plt Count 246 Neut % (Auto) 76.4 H Lymph % (Auto) 12.7 L [place] % (Auto) 7.4 Eos % (Auto) 3.0 Baso % (Auto) 0.4 Neut # (Auto) 6.30 Lymph # (Auto) 1.00 [place] # (Auto) 0.60 Eos # (Auto) 0.25 Baso # (Auto) 0.03 Abs Immat Gran (auto) 0.01 Imm/Tot Granulo (auto) 0.1 INR 2.87 H Sodium 133 L Potassium 4.1 Chloride 99 Carbon Dioxide 28 Anion Gap 6 L BUN 25 Creatinine 1.1 Estimated Creat Clear 45.11 Estimated GFR 66 Glucose 108 Calcium 8.1 L C-Reactive Protein 6.1 H A. phagocytophilum DNA Not Detected Babesia Species (PCR) Not Detected Lyme Disease Antibody 0.53 E.ewingii/canis DNA PCR Not Detected E. muris-like DNA (PCR) Not Detected Babesia microti (PCR) Not Detected E. chaffeensis (PCR) Not Detected Stool H. pylori Ag Negative Preliminary micro results at discharge 04/21/25 14:18 Aerobic Culture - Preliminary Synovial Fluid NO GROWTH AFTER 72 HOURS 04/21/25 09:47 Body Fluid Culture - Preliminary Synovial Fluid NO GROWTH AFTER 96 HOURS Discharge Plan Discharge Disposition: Home, Self-Care Date of Admission: 04/21/25 16:34 Attending Provider on Discharge: Piper Manning Primary Care Provider: Manuel Lagos Condition: Improved Anticipated Discharge Date/Time: 04/24/25 14:12 Discharge Medications: New cefdinir 300 mg capsule 300 mg PO BID 14 Days Qty: 28 0RF sennosides [Senna Lax] 8.6 mg Tablet 2 mg PO BID Qty: 120 0RF polyethylene glycol 3350 17 gram Powder In Packet 17 g PO DAILY PRN (Reason: constipation) Qty: 0 0RF Continued tamsulosin 0.4 mg capsule 0.4 mg PO DAILY omeprazole 20 mg tablet,delayed release (DR/EC) 20 mg PO DAILY acetaminophen [Tylenol] 325 mg tablet 650 mg PO Q6H PRN warfarin 2 mg tablet 2 mg PO DIRECTED Qty: 30 0RF Rx Instructions: take 2mg on Mondays and and 4mg all other days 03/31/25 Discharge Orders: Discharge Order (Routine); Ordered 04/24/25 Ordered By: Piper Manning Patient Education: Cefdinir (By mouth), Polyethylene Glycol 3350 (By mouth), Senna (By mouth), Patrick Catheter Placement and Care (DC), Urinary Leg Bag (GEN), Septic Arthritis (GEN), Incision and Drainage (DC), How to Change a Catheter Drainage Bag (DC) Activity Level: Activity as Tolerated and Use Walker Activity Detail: - INR at PCP on Friday Weightbear as tolerated operative extremity. Use crutches or walker for ambulation assistance if needed. Knee range of motion and quad sets/straight leg raise is regularly. Upperglade dressing is applied. Leave it in place unless it becomes compromised and if so remove it. Nylon sutures close the wound. - F/u with [facility] 7-10 days - You have a patrick catheter in for urinary retention. Please call your urologist and make an appointment to see Dr. Krishnan in 7-10 days to address urinary retention and see if it is time to discontinue the catheter. Discharge Diet: Regular Follow Up Appointments: Anuel Krishnan MD [Referring, Urology] Referral Note: Please call [phone] on Friday to schedule a follow up appointment with your Urologist for 7-10 days Manuel Lagos MD [Primary Care Provider, Family Practice] - 05/05/25 2:05 pm Referral Note: [facility] for follow up with PCP [facility] [Physician Transfer Table Operator Helper, Orthopedics] Referral Note: Please call [phone] on Friday to schedule an appointment with [facility] for 7-10 days Forms: [employer] Info Instructions Discharge Comments: Staff : please make Appointment with orthopedic physician preschool assistant principal in 1-2 weeks for a wound check, suture removal, and initiation of physical therapy if needed. Ph. [phone]
[2025-04-24 15:12] VITALS: BP 132/71; PULSE 79; RESP 16; TEMP 36.5; O2SAT 96
--- NOTE | 2025-04-24 15:21 | PC.NURSE ---
End of Shift: Patient pleasant and cooperative. Afebrile. Mepilex to right knee C/D/I. Rating pain up to 2/10 and PRN Tylenol given x1. Up with SBA, walker and gait belt. Tolerating regular diet with no nausea. Tse patent.
== END 2025-04-24 16:30 | disposition home or self-care (01) | DRG 486 ==
LOC: ED 12:26 → SS 14:00 → MEDSURG 15:24 → SS 16:34 → MEDSURG 04-22 08:18
PROVIDERS: Family Medicine; Admitting Provider Family Medicine; Emergency Provider Emergency Medicine; PCP Family Medicine; Visit Provider Orthopaedic Surgery Sports Medicine
PROC: 0SBC4ZZ Excision of Right Knee Joint, Percutaneous Endoscopic Approach (ICD-10-PCS; CPT 29870; principal; 2025-04-21 13:45)
DX: M00.861 Arthritis due to other bacteria, right knee (principal); D68.51 Activated protein C resistance; S83.241A Other tear of medial meniscus, current injury, right knee, initial encounter; M23.41 Loose body in knee, right knee; M17.11 Unilateral primary osteoarthritis, right knee; N18.31 Chronic kidney disease, stage 3a; R33.8 Other retention of urine; R11.2 Nausea with vomiting, unspecified; N40.1 Benign prostatic hyperplasia with lower urinary tract symptoms; Z79.01 Long term (current) use of anticoagulants; Z86.718 Personal history of other venous thrombosis and embolism; Z86.73 Personal history of transient ischemic attack (TIA), and cerebral infarction without residual deficits
CPT/HCPCS: 01400; 20610; 36415; 51701; 51798; 73562; 74019; 80048; 80053; 84157; 85025; 85379; 85610; 85651; 86140; 86618; 87070; 87075; 87205; 87338; 87468; 87469; 87484; 87798; 89051; 89060; 93005; 97116; 97161; 99100; 99140; 99283; 99285; A9270; J0330; J0665; J0690; J0696; J1171; J2371; J2405; J2704; J2710; J3010; J7120